=== PATIENT | female | born 1955 | race American Indian/Alaskan Native ===

== ENCOUNTER 2020-08-19 14:59 | Inpatient (IN) | payer BC ==
[2020-08-19] MEDS ORDERED: LORazepam 2 MG/ML VIAL ONE (15:28)
--- NOTE | 2020-08-19 15:54 | Consultation ---
History of Present Illness History of present illness: [facility] Consult Note # Demographics Consult Type: General Neurology Patient Location: Emergency Room First Name: Gustavo Last Name: Vickie James Date of : 09/16/1965 Age: 54 Gender: Female Time of Initial Page (Eastern Time): 08/19/2020, 15:46 Time of Return Call (Eastern Time): 08/19/2020, 15:46 Phone Only Consult: 54F with chronic back pain on opioids presents with AMS/LOC. Has been out of oxycodone for several days. Came to the ED, vomiting, having diarrhea, very agitated. Febrile to 100.5. WBC 22K. CT head unremarkable. Had a [address] Given 1.5g levetiracetam and then intubated for airway protection, placed on propofol and fentanyl for sedation. 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 Recommend video EEG and LP, which may need to be done under IR guidance. # Logistics Telemedicine: phone only Electronically signed at 08/19/2020 15:54 ( Time) by Mannie York MD Medications and Allergies Allergies Allergy/AdvReac Type Severity Reaction Status Date / Time No Known Allergies Allergy Verified 08/19/20 15:50 Home Medications Medication Instructions Recorded Confirmed Last Taken Type EPINEPHrine (NF) [Epipen (Nf)] 0.3 mg IM PRN #1 syringekit 04/27/14 Unknown Rx Prednisone [Prednisone 10 mg 10 mg PO .TAPER #1 tab.ds.pk 04/27/14 Unknown Rx (6-Day Pack, 21 Tabs)] Azithromycin [Zithromax Z-JANES] 1 dose PO DAILY 5 Days tab 07/09/15 Unknown Rx Ibuprofen [Motrin] 800 mg PO Q8HR PRN #30 tablet 07/09/15 Unknown Rx traMADoL [Ultram 50 MG tab] 50 mg PO Q6HR PRN #20 tablet 07/09/15 Unknown Rx
[2020-08-19] MEDS ORDERED: LORazepam 2 MG/ML VIAL IM ONE (16:00)
[2020-08-19] MEDS ORDERED: HALOPERIDOL LACTATE 5 MG/1 ML INJ IM ONE (16:01)
[2020-08-19] MEDS ORDERED: diphenhydrAMINE 50 MG/ML VIAL IM ONE (16:01)
--- NOTE | 2020-08-19 16:04 | Cat Scan Report ---
CT head/brain wo con INDICATION / CLINICAL INFORMATION: 65 years Female; CODE STROKE Stroke symptoms PT IS AMS UNABLE TO GET A GOOD STUDY #[id number]. TECHNIQUE: Routine CT head without contrast. All CT scans at this location are performed using CT dos e reduction for ALARA by means of automated exposure control. COMPARISON: None. FINDINGS: BRAIN / INTRACRANIAL CONTENTS: The motion and positioning degrade the image quality at. 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 The ve ntricular system is within normal limits in size and configuration. There is no clear CT evidence of acute intracranial hemorrhage or significant mass effect. ORBITS: No significant abnormality of visualized orbits. SINUSES / MASTOIDS: No significant abnormality in the visualized paranasal sinuses or mastoid air martín ls. CRANIOCERVICAL JUNCTION: No significant abnormality. ADDITIONAL FINDINGS: None. IMPRESSION: 1. The study is limited by motion and positioning. However, there is mild microvascular angiopathy wi thout clear CT evidence of acute intracranial hemorrhage. The study was specified as code stroke and dictated emergently at 2:57 PM Central standard time. [facility] with no answer. Signer Name: Nikolai Coronado MD Signed: 08/19/2020 4:00 PM Workstation Name: [id number]
[2020-08-19 16:19] LABS: Basophils # (Auto) 0.1 K/mm3 (0.0-0.1); Hematocrit 27.2 % (30.3-42.9); Hemoglobin 9.2 gm/dl (10.1-14.3); Lymphocytes # (Auto) 1.3 K/mm3 (1.2-5.4); Lymphocytes % (Auto) 12.6 % (13.4-35.0); Mean Corpuscular HGB Conc 34 % (30-34); Mean Corpuscular Volume 97 fl (79-97); Monocytes # (Auto) 0.8 K/mm3 (0.0-0.8); Monocytes % (Auto) 7.8 % (0.0-7.3); Platelet Count 242 K/mm3 (140-440); Red Blood Count 2.79 M/mm3 (3.65-5.03); Red Cell Distribution Width 14.2 % (13.2-15.2)
[2020-08-19 16:29] LABS: INR 1.08 (0.87-1.13)
[2020-08-19 16:30] LABS: Partial Thromboplastin Time 24.3 Sec. (24.2-36.6); Thrombin Time 16.9 Sec. (15.1-19.6)
--- NOTE | 2020-08-19 16:30 | Consultation ---
History of Present Illness History of present illness: [facility] Consult Note # Demographics Consult Type: Acute Stroke Level 2 (4.5-24 hrs) Patient Location: Emergency Room First Name: OPAL Last Name: JEROME ARAUZ Date of : 1955 Age: 65 Gender: Female Time of Initial Page (): 08/19/2020, 15:17 Time of Return Call ( Time): 08/19/2020, 15:17 # HPI Chief Complaint: altered mental state History: 65F presents with confusion since midnight last night. Unable to concentrate, just repeating "oh my god". Last night was acting strange, urinating on the floor and walking in circles. Keeps grabbing her head. BP 200/120 for EMS, fingerstick 116. # Scores Time of exam and NIHSS (): 08/19/2020, 15:18 Level of Consciousness 1a: [0] = Alert; keenly responsive LOC Questions 1b: [2] = Answers neither correctly LOC Commands 1c: [2] = Performs neither correctly Best Gaze 2: [0] = Normal Visual 3: [0] = No visual loss Facial Palsy 4: [0] = Normal symmetrical movements Motor Arm Left 5a: [2] = Some effort against gravity Motor Arm Right 5b: [2] = Some effort against gravity Motor Leg Left 6a: [2] = Some effort against gravity Motor Leg Right 6b: [2] = Some effort against gravity Limb Ataxia 7: [0] = Absent Sensory 8: [0] = Normal Best Language 9: [2] = Severe aphasia Dysarthria 10: [0] = Normal Extinction and Inattention 11: [0] = No abnormality NIHSS Total: 14 # Data Other Labs: WBC 10.7K Time Head CT personally read by me ( Time): 08/19/2020, 15:[address]: no bleed preliminarily reviewed by me, please refer to radiology read for official reading # Assessment Impression: Ischemic Stroke (Acute) vs metabolic encephalopathy # Plan Thrombolytic/Intervention: IA Intervention Thrombolytic Exclusion: > 4.5 hours Target Blood Pressure: SBP < 220 DBP < 105 Labs: hemoglobin A1c lipid panel Imaging: (urgency: STAT): CT Angiogram Head and CT Angiogram Neck AND call back with results if abnormal Imaging: (urgency: routine): MRI Brain without contrast Other: permissive hypertension telemetry monitoring I have discussed my recommendations with the referring provider Additional Recommendations: If LVO present on CTA, would transfer for potential mechanical thrombectomy If no LVO, admit for stroke work-up with TTE, telemetry, check lipid panel and hgb A1C, MRI brain. 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 antibiotics Give ASA 300 TX and start high-dose statin when oral access available Disposition: admit # Logistics Telemedicine: Interactive 2 way audio and visual telecommunication technology was utilized during this visit Electronically signed at 08/19/2020 16:30 (Eastern Time) by Mannie York MD Medications and Allergies Allergies Allergy/AdvReac Type Severity Reaction Status Date / Time No Known Allergies Allergy Verified 08/19/20 15:50 Home Medications Medication Instructions Recorded Confirmed Last Taken Type EPINEPHrine (NF) [Epipen (Nf)] 0.3 mg IM PRN #1 syringekit 04/27/14 Unknown Rx Prednisone [Prednisone 10 mg 10 mg PO .TAPER #1 tab.ds.pk 04/27/14 Unknown Rx (6-Day Pack, 21 Tabs)] Azithromycin [Zithromax Z-JANES] 1 dose PO DAILY 5 Days tab 07/09/15 Unknown Rx Ibuprofen [Motrin] 800 mg PO Q8HR PRN #30 tablet 07/09/15 Unknown Rx traMADoL [Ultram 50 MG tab] 50 mg PO Q6HR PRN #20 tablet 07/09/15 Unknown Rx Physical Examination - Vital Signs Vital Signs: Vital Signs Pulse Resp BP Pulse Ox 90 18 174/73 100 08/19/20 16:02 08/19/20 16:02 08/19/20 16:02 08/19/20 16:02 Results - Laboratory Findings CBC and BMP: 08/19/20 16:14 Abnormal Lab Findings: Abnormal Labs 08/19/20 16:14 RBC 2.79 L Hgb 9.2 L Hct 27.2 L MCH 33 H Lymph % (Auto) 12.6 L Wall[place] % (Auto) 7.8 H Seg Neutrophils % 78.6 H Seg Neutrophils # 8.4 H
[2020-08-19 16:39] LABS: Creatine Kinase MB 1.9 ng/mL (0.0-4.0)
[2020-08-19 16:41] LABS: Alanine Aminotransferase 9 units/L (7-56); Albumin 4.3 g/dL (3.9-5); Blood Urea Nitrogen 59 mg/dL (7-17); Calcium 9.2 mg/dL (8.4-10.2); Hemolysis Index 38
[2020-08-19 16:44] LABS: BUN/Creatinine Ratio 8
--- NOTE | 2020-08-19 16:53 | Emergency Department Report ---
HPI - General Chief Complaint: Altered Mental Status Time Seen by Provider: 08/19/20 15:14 - HPI HPI: 65-year-old female with unknown past medical history brought in by EMS due to worsening altered mental status and neglect. According to the EMS report, the patient was last seen normal at midnight last night. Since then she has had altered mental status to the point that she is unable to communicate. She does not respond to questioning and has been displaying neglect for any external stimuli. According to the EMS report her Accu-Chek was 98. The patient keeps saying "Oh my God" over and over but does not respond to any questioning. Details of the HPI are therefore extremely limited. I later spoke with the patient's who provided further history. He says that since 12 AM last night she has been displaying altered mental status and has been urinating on herself constantly. She has also been vomiting. He says that she has a history of a right lower extremity DVT and underwent recent intervention at [facility]. He is not sure which kind of intervention she received but states that she was scheduled to go back to the hospital very soon to complete further clot removal. She is not on anticoagulation. He denies that she has any other medical history or allergies. ED Past Medical Hx - Past Medical History Hx Asthma: Yes - Social History Smoking Status: Never Smoker Substance Use Type: None - Medications Home Medications: Home Medications Medication Instructions Recorded Confirmed Last Taken Type EPINEPHrine (NF) [Epipen (Nf)] 0.3 mg IM PRN #1 syringekit 04/27/14 Unknown Rx Prednisone [Prednisone 10 mg 10 mg PO .TAPER #1 tab.ds.pk 04/27/14 Unknown Rx (6-Day Pack, 21 Tabs)] Azithromycin [Zithromax Z-JANES] 1 dose PO DAILY 5 Days tab 07/09/15 Unknown Rx Ibuprofen [Motrin] 800 mg PO Q8HR PRN #30 tablet 07/09/15 Unknown Rx traMADoL [Ultram 50 MG tab] 50 mg PO Q6HR PRN #20 tablet 07/09/15 Unknown Rx ED Review of Systems ROS: Stated complaint: AMS Other details as noted in HPI Comment: Unobtainable due to pts medical conditions Physical Exam - Physical Exam Vital Signs: Vital Signs 08/19/20 16:02 Pulse Rate 90 Respiratory 18 Rate Blood Pressure 174/73 [Right] O2 Sat by Pulse 100 Oximetry Physical Exam: GENERAL: Well developed and well nourished. Patient is in mild to moderate distress repeating "oh my god" over and over. Patient does not display regard for the examiner and has not been able to shift her eyes or attention towards me. HEENT: Normocephalic. No obvious signs of trauma. Very dry mucous membranes EYES: Unable to assess EOM secondary to altered mental state. Pupils are equal round and reactive to light bilaterally NECK: Supple. Trachea is midline. LUNGS: Nonlabored breathing. Equal chest rise bilaterally. Clear to auscultation bilaterally. HEART/CARDIOVASCULAR: Regular rate and rhythm. No murmurs or rubs. ABDOMEN: Abdomen is soft and nondistended. There is no obvious tenderness, guarding or rebound, although difficult to assess given altered mental state. SKIN: Skin is warm and dry NEURO: Patient is awakeand alert but oriented x 0. She displays bilateral neglect and is not responding to any speech. She is uncooperative with the exam. Seen moving all 4 extremities with grossly normal strength. Unable to assess sensation. MUSCULOSKELETAL: No obvious deformities. No significant tenderness. ED Course Vital Signs 08/19/20 16:02 Pulse Rate 90 Respiratory 18 Rate Blood Pressure 174/73 [Right] O2 Sat by Pulse 100 Oximetry ED Medical Decision Making - Lab Data Result diagrams: 08/19/20 16:14 08/19/20 16:14 Labs 08/19/20 08/19/20 08/19/20 15:45 16:14 16:14 WBC 10.7 RBC 2.79 L Hgb 9.2 L Hct 27.2 L MCV 97 MCH 33 H MCHC 34 RDW 14.2 Plt Count 242 Lymph % (Auto) 12.6 L [place] % (Auto) 7.8 H Eos % (Auto) 0.0 Baso % (Auto) 1.0 Lymph # (Auto) 1.3 [place] # (Auto) 0.8 Eos # (Auto) 0.0 Baso # (Auto) 0.1 Seg Neutrophils % 78.6 H Seg Neutrophils # 8.4 H PT 14.6 INR 1.08 APTT 24.3 Thrombin Time 16.9 Sodium Potassium Chloride Carbon Dioxide Anion Gap BUN Creatinine Estimated GFR BUN/Creatinine Ratio Glucose POC Glucose 94 Calcium Total Bilirubin AST ALT Alkaline Phosphatase Total Creatine Kinase CK-MB (CK-2) CK-MB (CK-2) Rel Index Troponin T Total Protein Albumin Albumin/Globulin Ratio PTH Intact Urine Color Urine Turbidity Urine pH Ur Specific [place] Urine Protein Urine Glucose (UA) Urine Ketones Urine Blood Urine Nitrite Urine Bilirubin Urine Urobilinogen Ur Leukocyte Esterase Urine WBC (Auto) Urine RBC (Auto) U Epithel Cells (Auto) Urine Opiates Screen Urine Methadone Screen Ur Barbiturates Screen Ur Phencyclidine Scrn Ur Amphetamines Screen U Benzodiazepines Scrn Urine Cocaine Screen U Marijuana (THC) Screen Drugs of Abuse Note Plasma/Serum Alcohol Hepatitis A IgM Ab Hep Bs Antigen Hep B Core IgM Ab Hepatitis C Antibody HIV 1&2 Antibody Rapid HIV P24 Antigen 08/19/20 08/19/20 08/19/20 16:14 16:14 17:28 WBC RBC Hgb Hct MCV MCH MCHC RDW Plt Count Lymph % (Auto) [place] % (Auto) Eos % (Auto) Baso % (Auto) Lymph # (Auto) [place] # (Auto) Eos # (Auto) Baso # (Auto) Seg Neutrophils % Seg Neutrophils # PT INR APTT Thrombin Time Sodium 143 Potassium 5.6 H Chloride 103.9 Carbon Dioxide 21 L Anion Gap 24 BUN 59 H Creatinine 7.4 H Estimated GFR 7 BUN/Creatinine Ratio 8 Glucose 110 H POC Glucose Calcium 9.2 Total Bilirubin 0.30 AST 11 ALT 9 Alkaline Phosphatase 78 Total Creatine Kinase 184 H CK-MB (CK-2) 1.9 CK-MB (CK-2) Rel Index 1.0 Troponin T < 0.010 Total Protein 7.6 Albumin 4.3 Albumin/Globulin Ratio 1.3 PTH Intact 103.8 H Urine Color Urine Turbidity Urine pH Ur Specific [place] Urine Protein Urine Glucose (UA) Urine Ketones Urine Blood Urine Nitrite Urine Bilirubin Urine Urobilinogen Ur Leukocyte Esterase Urine WBC (Auto) Urine RBC (Auto) U Epithel Cells (Auto) Urine Opiates Screen Urine Methadone Screen Ur Barbiturates Screen Ur Phencyclidine Scrn Ur Amphetamines Screen U Benzodiazepines Scrn Urine Cocaine Screen U Marijuana (THC) Screen Drugs of Abuse Note Plasma/Serum Alcohol < 0.01 Hepatitis A IgM Ab Hep Bs Antigen Hep B Core IgM Ab Hepatitis C Antibody HIV 1&2 Antibody Rapid HIV P24 Antigen 08/19/20 08/19/20 08/19/20 17:28 17:28 18:31 WBC RBC Hgb Hct MCV MCH MCHC RDW Plt Count Lymph % (Auto) [place] % (Auto) Eos % (Auto) Baso % (Auto) Lymph # (Auto) [place] # (Auto) Eos # (Auto) Baso # (Auto) Seg Neutrophils % Seg Neutrophils # PT INR APTT Thrombin Time Sodium Potassium Chloride Carbon Dioxide Anion Gap BUN Creatinine Estimated GFR BUN/Creatinine Ratio Glucose POC Glucose Calcium Total Bilirubin AST ALT Alkaline Phosphatase Total Creatine Kinase CK-MB (CK-2) CK-MB (CK-2) Rel Index Troponin T Total Protein Albumin Albumin/Globulin Ratio PTH Intact Urine Color Straw Urine Turbidity Clear Urine pH 8.0 H Ur Specific [place] 1.011 Urine Protein 100 mg/dl Urine Glucose (UA) Neg Urine Ketones Tr Urine Blood Sm Urine Nitrite Neg Urine Bilirubin Neg Urine Urobilinogen < 2.0 Ur Leukocyte Esterase Tr Urine WBC (Auto) 7.0 H Urine RBC (Auto) 4.0 U Epithel Cells (Auto) 3.0 Urine Opiates Screen Urine Methadone Screen Ur Barbiturates Screen Ur Phencyclidine Scrn Ur Amphetamines Screen U Benzodiazepines Scrn Urine Cocaine Screen U Marijuana (THC) Screen Drugs of Abuse Note Plasma/Serum Alcohol Hepatitis A IgM Ab Non-reactive Hep Bs Antigen Non-reactive Hep B Core IgM Ab Non-reactive Hepatitis C Antibody Non-reactive HIV 1&2 Antibody Rapid Non react HIV P24 Antigen Non react 08/19/20 18:31 WBC RBC Hgb Hct MCV MCH MCHC RDW Plt Count Lymph % (Auto) [place] % (Auto) Eos % (Auto) Baso % (Auto) Lymph # (Auto) [place] # (Auto) Eos # (Auto) Baso # (Auto) Seg Neutrophils % Seg Neutrophils # PT INR APTT Thrombin Time Sodium Potassium Chloride Carbon Dioxide Anion Gap BUN Creatinine Estimated GFR BUN/Creatinine Ratio Glucose POC Glucose Calcium Total Bilirubin AST ALT Alkaline Phosphatase Total Creatine Kinase CK-MB (CK-2) CK-MB (CK-2) Rel Index Troponin T Total Protein Albumin Albumin/Globulin Ratio PTH Intact Urine Color Urine Turbidity Urine pH Ur Specific [place] Urine Protein Urine Glucose (UA) Urine Ketones Urine Blood Urine Nitrite Urine Bilirubin Urine Urobilinogen Ur Leukocyte Esterase Urine WBC (Auto) Urine RBC (Auto) U Epithel Cells (Auto) Urine Opiates Screen Negative Urine Methadone Screen Negative Ur Barbiturates Screen Negative Ur Phencyclidine Scrn Negative Ur Amphetamines Screen Negative U Benzodiazepines Scrn Negative Urine Cocaine Screen Negative U Marijuana (THC) Screen Negative Drugs of Abuse Note Disclamer Plasma/Serum Alcohol Hepatitis A IgM Ab Hep Bs Antigen Hep B Core IgM Ab Hepatitis C Antibody HIV 1&2 Antibody Rapid HIV P24 Antigen - EKG Data -: EKG Interpreted by Ia - EKG Data 08/19/20 18:32 Normal sinus rhythm. Normal axis. No ectopy. There are nonspecific T wave inversions noted in leads V1 through V3. There is no significant ST segment abnormalities. - Radiology Data CT head/brain wo con INDICATION / CLINICAL INFORMATION: 65 years Female; CODE STROKE Stroke symptoms PT IS AMS UNABLE TO GET A GOOD STUDY #[id number]. TECHNIQUE: Routine CT head without contrast. All CT scans at this location are performed using CT dose reduction for Scaled Agile by means of automated exposure control. COMPARISON: None. FINDINGS: BRAIN / INTRACRANIAL CONTENTS: The motion and positioning degrade the image quality at. However, there appears be mild cerebral white matter disease most consistent with microvascular a ngiopathy. The ventricular system is within normal limits in size and configuration. There is no clear CT evidence of acute intracranial hemorrhage or significant mass effect. ORBITS: No significant abnormality of visualized orbits. SINUSES / MASTOIDS: No significant abnormality in the visualized p aranasal sinuses or mastoid air cells. CRANIOCERVICAL JUNCTION: No significant abnormality. ADDITIONAL FINDINGS: None. IMPRESSION: 1. The study is limited by motion and positioning. However, there is mild microvascular angiopathy without clear CT evidence of acute intracranial hemorrhage. The study was specified as code stroke and dictated emergently at 2:57 PM Central standard time. Multiple c alls to the emergency room were unsuccessful with no answer. Signer Name: Nikolai Coronado MD Signed: 08/19/2020 3:00 PM Workstation Name: [id number] CT ABDOMEN AND PELVIS WITHOUT CONTRAST INDICATION / CLINICAL INFORMATION: Acute renal failure, uyrinary incontinence. TECHNIQUE: Axial CT images were obtained through the abdomen and pelvis without IV contrast. All CT scans at this location are performed using CT dose reduction for Scaled Agile by means of automated exposure control. COMPARISON: None available. FINDINGS: LOWER CHEST: No significant abnormality. LIVER: No significant abnormality. GALLBLADDER: No significant abnormality. BILE DUCTS: No significant abnormality. PANCREAS: No significant abnormality. SPLEEN: No significant abnormality. ADRENALS: No significant abnormality. RIGHT KIDNEY and URETER: Moderate right hydronephrosis and dilation of the proximal to mid right ureter. No obvious obstructing stone or lesion identified. LEFT KIDNEY and URETER: Moderate left hydroureteroneph rosis. No obvious obstructing stone or lesion identified. STOMACH and SMALL BOWEL: No significant abnormality. COLON: Diverticulosis without CT evidence for acute diverticulitis. APPENDIX: No significant abnormality. PERITONEUM: No free fluid. No free air. No fluid collection. LYMPH NODES: Mildly prominent left groin lymph nodes are nonspecific and likely reactive. AORTA and ARTERIES: No significant abnormality. IVC and VEINS: No significant abnormality. URINARY BLADDER: Collapsed with a Bowman catheter in place. REPRODUCTIVE ORGANS: Prior hysterectomy. ADDITIONAL FINDINGS: Several fat-containing ventral abdominal hernias. There is asymmetric soft tissue swelling involving the visualized left anterior thigh and left flank. SKELETAL SYSTEM: No significant abnormality. IMPRESSION: 1. Moderate bilateral hydroureteronephrosis without obvious obstructing stone or lesion identified. 2. Asymmetric soft tissue swelling involving the left flank and left proximal thigh. Signer Name: Kelley Saha MD Signed: 08/19/2020 6:58 PM Workstation Name: [id number] CHEST 1 VIEW 08/19/2020 6:47 PM INDICATION / CLINICAL INFORMATION: stroke, AMS. COMPARISON: 07/09/2015 FINDINGS: SUPPORT DEVICES: None. HEART / MEDIASTINUM: Stable. LUNGS / PLEURA: No significant pulmonary or pleural abnormality. No pneumothorax. ADDITIONAL FINDINGS: No significant additional findings. IMPRESSION: 1. No acute findings. Signer Name: Gilberto Campos MD Signed: 08/19/2020 6:38 PM Workstation Name: [id number] - Medical Decision Making 65-year-old female brought in by EMS for altered mental status and spatial neglect which apparently started at midnight. According to the EMS report, her stated that she was in her normal state last night until midnight after which she displayed severely altered mental status and was unable to respond to questioning as well as not able to pay attention to any external stimulus. On my initial assessment, the patient is unable to regard the examiner. She does not follow commands or respond to questioning. She is unable to direct her attention towards any external stimulus. She does however respond to pain. Given abrupt onset of severe neurologic deficits, stroke alert was initiated. The patient is afebrile and with grossly stable vital signs. Further history was obtained from the patient's who conveyed that she has no known medical history with the exception of the right lower extremity DVT and she apparently underwent some kind of intervention Thursday at [facility]. She is not on anticoagulation is apparently scheduled for another intervention. He also further states that the patient today has been urinating on herself and has vomited a few times in addition to the neurologic complaints and deficits observed. I immediately put in a request for medical records from [facility]. I spoke with Dr. Chand of teleneurology who agreed with my assessment and is also suspicious for possible stroke. He reviewed the Noncon CT of the head and there is no evidence of ICH. Radiology read confirms that there is no intracranial bleeding and no obvious sign of acute infarct. Dr. Chand recommended CTA of the head and neck which will be performed as soon as IV access has been obtained. Will give aspirin 300mg WA. Medications ordered for sedation to assist with IV placement. Labs have been drawn. At 4:49 PM, labs have returned and reveal no significant leukocytosis. Hemoglobin is mildly low at 9.2. Of note, the patient is in acute renal failure with a creatinine of 7.4 and BUN of 59. Her potassium is mildly elevated at 5.6. With this finding, in conjunction with the history provided by the that the patient has been urinating on herself and vomiting, I am more suspicious for a possible metabolic cause of her altered mental status, although stroke cannot be ruled out at this time. I asked the nurse to place a Bowman catheter given the possibility of obstructive uropathy. I spoke again with Dr. Chand of teleneurology and updated him with these findings. He says that with these additional results he recommends MR/MRA instead of CTA. He does not feel that the patient requires an LP at this time. Although there are no hard findings to warrant emergent dialysis at this time we will nonetheless consult nephrology and vascular surgery stat given the patient's current clinical condition. At 5:00 PM I spoke to Dr. Brewer of nephrology regarding the case and lab results. He recommends fluid trial with 1 L of IV fluids as well as ultrasound study of the kidneys to assess for evidence of obstruction. He recommends consulting vascular surgery to have them available should she require emergent dialysis. He will also place further orders. Soon thereafter I spoke over the phone with Dr. Valverde of vascular surgery and he asked that I put the patient on his list. At approximately 6 PM I was called to the bedside with the nurse who states that she is unable to pass a Bowman catheter because the patient has a urethral stricture. I recommended trying to place a coud catheter. The nurse was able to pass the coud catheter and approximately 500 cc of urine immediately drained. This is in addition to several episodes of urinary incontinence since the patient first arrived. Urinalysis does not show obvious sign of infection but will nonetheless send urine culture given the finding of urinary retention, although urethral stricture could be the cause. CT scan of the abdomen is still pending. At 7:10 PM the patient's blood pressure which was previously in the 170s has been progressively increasing and her most recent blood pressures in the 200s systolic. I spoke with Dr. Brewer of nephrology and gave him an update regarding the patient's urinary retention and urethral stricture. He feels that this is likely the cause of her acute renal failure, although concomitant stroke is still possible. I spoke with him regarding my concern given her elevated blood pressure which is now in the 200s systolic. He recommends initiation of a Cardene drip with admission to the intensive care unit. He will continue to monitor her closely overnight and determine the need for emergent dialysis if necessary. He does not feel it is necessary at this exact time. We will target systolic blood pressure < 180 to allow permissive hypertension given the possibility of concomitant stroke. Repeat BMP ordered as well as ammonia level. I spoke with the admitting hospitalist, Dr. Almanza at 7:44 PM regarding the case. He accepts the patient for admission will assume care. I conveyed that CT of the abdomen pelvis and repeat labs are pending. Bilateral lower extremity DVT study has been ordered given the history obtained from the that the patient has a right lower extremity DVT requiring further prevention. Critical Care Time: Yes (120) Critical care time in (mins) excluding proc time.: 120 Critical care attestation.: If time is entered above; I have spent that time in minutes in the direct care of this critically ill patient, excluding procedure time. Critical care time was spent in the assessment, work-up, and management of acutely life-threatening renal failure, possible stroke, encephalopathy, and hypertensive urgency requiring initiation of Cardene drip and coordination of care between multiple specialists. ED Disposition Clinical Impression: Uremia, Hypertensive urgency, Hyperkalemia, Urinary retention, Encephalopathy acute Acute renal failure Qualifiers: Acute renal failure type: unspecified Qualified Code(s): N17.9 - Acute kidney failure, unspecified Altered mental state Qualifiers: Altered mental status type: delirium Qualified Code(s): R41.0 - Disorientation, unspecified Disposition: DC-09 OP ADMIT IP TO THIS HOSP Is pt being admited?: Yes Condition: Critical Referrals: PRIMARY CARE, [Primary Care Provider] - 3-5 Days
[2020-08-19] MEDS ORDERED: SODIUM CHLORIDE 0.9% 1000 ML 1,000 ML IV ONE (17:38)
[2020-08-19] MEDS ORDERED: LORazepam 2 MG/ML VIAL IV ONE ×2 (17:39→17:40)
[2020-08-19] MEDS ORDERED: ASPIRIN 300 MG RECT SUPP PR ONE (18:38)
[2020-08-19 18:46] LABS: Bilirubin,Urine NEG (Negative); Blood,Urine SM (Negative); Color,Urine Straw (Yellow); Urobilinogen,Urine < 2.0 mg/dL (<2.0)
[2020-08-19 18:51] LABS: Amphetamine Screen,Urine Negative; Benzodiazepines Screen,Urine Negative; Cannabinoid Screen,Urine Negative; Cocaine Screen,Urine Negative; Methadone Screen,Urine Negative; Opiate Screen,Urine Negative
[2020-08-19 18:54] LABS: Hepatitis B Surface Antigen Non-Reactive (Negative); Hepatitis C Virus Antibody Non-Reactive (NonReactive)
[2020-08-19] MEDS ORDERED: hydrALAZINE 20 MG/1 ML INJ IV ONE (19:07)
[2020-08-19] MEDS: niCARdipine DRIP 40 MG/200 ML BAG IV SCH (19:41)
--- NOTE | 2020-08-19 19:43 | History and Physical Report ---
History of Present Illness Chief complaint: She is confused and weak History of present illness: 65 YO Female with Vascular Dementia, Cerebral Atherosclerosis, HTN, Debility, RLE DVT not taking therapeutic anticoagulation presents to ED for evaluation. Patient has diminished cognition at the time my evaluation is unable to provide history. Patient history provided by the patient who is available via telephone for interview. As per , the patient has experienced increased worsening and confusion over the past 1 week with concomitant acutely worsening of confusion over the past 24 hours. Patient is currently bedbound, nonambulatory, and requires 6/6 assistance with activities of daily living, and is unable to make needs known or follow simple commands. EMS notified and upon arrival the patient was found to be in distress and subsequently transported to [facility] for further care and evaluation of the aforementioned symptoms. The patient was seen and evaluated in the emergency department. All lab and image studies reviewed. Patient found to have JENNIFER with ATN with a serum creatinine of 7.4. The patient was also found to have a systolic blood pressure of 203 which is consistent with hypertensive emergency which was complicated by hypertensive encephalopathy, metabolic acidosis. Nephrology team consulted in ED. Critical care team consulted. Patient admitted to ICU and initiated on Cardene drip due to increased risk of further worsening symptoms. No further history is obtainable. Patient has diminished cognition but has a positive gag reflex and is able to protect her airway without difficulty. No reports of fever, chills, chest pain, palpitation, productive cough, skin rash, recent ill contacts, trauma, or known exposure to COVID-19. No prior admission for review. All medication listed at time of admission has been reconciled. Advanced care planning conducted in ED. Past History Past Medical History: hypertension, other (See HPI) Past Surgical History: No surgical history, Other (Reviewed) Social history: , lives with family. denies: smoking, alcohol abuse, prescription drug abuse Family history: hypertension Medications and Allergies Allergies Allergy/AdvReac Type Severity Reaction Status Date / Time No Known Allergies Allergy Verified 08/19/20 15:50 Home Medications Medication Instructions Recorded Confirmed Last Taken Type EPINEPHrine (NF) [Epipen (Nf)] 0.3 mg IM PRN #1 syringekit 04/27/14 Unknown Rx Prednisone [Prednisone 10 mg 10 mg PO .TAPER #1 tab.ds.pk 04/27/14 Unknown Rx (6-Day Pack, 21 Tabs)] Azithromycin [Zithromax Z-JANES] 1 dose PO DAILY 5 Days tab 07/09/15 Unknown Rx Ibuprofen [Motrin] 800 mg PO Q8HR PRN #30 tablet 07/09/15 Unknown Rx traMADoL [Ultram 50 MG tab] 50 mg PO Q6HR PRN #20 tablet 07/09/15 Unknown Rx Active Meds: Active Medications Nicardipine/Sodium Chloride (Cardene Drip 40 Mg/200 Ml) 40 mg in 200 mls @ 25 mls/hr IV TITR RADHA; Protocol Last Admin: 08/19/20 19:41 Dose: 5 mg/hr, 25 mls/hr Documented by: Review of Systems ROS unobtainable: due to mental status Exam - Constitutional Vitals: Temp Pulse Resp BP Pulse Ox 98.3 F 97 H 19 203/96 96 08/19/20 16:05 08/19/20 19:01 08/19/20 19:01 08/19/20 19:01 08/19/20 19:01 General appearance: Present: mild distress, obese - EENT Eyes: Present: PERRL ENT: clear oral mucosa, hearing decreased - Neck Neck: Present: supple, normal ROM - Respiratory Respiratory effort: normal Respiratory: bilateral: CTA - Cardiovascular Heart Sounds: Present: S1 & S2. Absent: rub, click - Extremities Extremities: pulses symmetrical, No edema Peripheral Pulses: within normal limits - Abdominal General gastrointestinal: Present: soft, non-tender, non-distended, normal bowel sounds Female genitourinary: Present: normal - Integumentary Integumentary: Present: clear, warm, dry - Musculoskeletal Musculoskeletal: generalized weakness - Psychiatric Psychiatric: no appropriate mood/affect, no intact judgment & insight, no memory intact, agitated - Neurologic Neurologic: CNII-XII intact, no focal deficits, moves all extremities, no gait normal HEART Score - HEART Score Troponin: Troponin T < 0.010 ng/mL (0.00-0.029) 08/19/20 16:14 Results - Labs CBC & Chem 7: 08/19/20 16:14 08/19/20 16:14 Labs: Abnormal lab results 08/19/20 08/19/20 08/19/20 Range/Units 16:14 16:14 17:28 RBC 2.79 L (3.65-5.03) M/mm3 Hgb 9.2 L (10.1-14.3) gm/dl Hct 27.2 L (30.3-42.9) % MCH 33 H (28-32) pg Lymph % (Auto) 12.6 L (13.4-35.0) % Peach % (Auto) 7.8 H (0.0-7.3) % Seg Neutrophils % 78.6 H (40.0-70.0) % Seg Neutrophils # 8.4 H (1.8-7.7) K/mm3 Potassium 5.6 H (3.6-5.0) mmol/L Carbon Dioxide 21 L (22-30) mmol/L BUN 59 H (7-17) mg/dL Creatinine 7.4 H (0.6-1.2) mg/dL Glucose 110 H (65-100) mg/dL Total Creatine Kinase 184 H (30-135) units/L PTH Intact 103.8 H (15-65) pg/mL Urine pH (5.0-7.0) Urine WBC (Auto) (0.0-6.0) /HPF 08/19/20 Range/Units 18:31 RBC (3.65-5.03) M/mm3 Hgb (10.1-14.3) gm/dl Hct (30.3-42.9) % MCH (28-32) pg Lymph % (Auto) (13.4-35.0) % Peach % (Auto) (0.0-7.3) % Seg Neutrophils % (40.0-70.0) % Seg Neutrophils # (1.8-7.7) K/mm3 Potassium (3.6-5.0) mmol/L Carbon Dioxide (22-30) mmol/L BUN (7-17) mg/dL Creatinine (0.6-1.2) mg/dL Glucose (65-100) mg/dL Total Creatine Kinase (30-135) units/L PTH Intact (15-65) pg/mL Urine pH 8.0 H (5.0-7.0) Urine WBC (Auto) 7.0 H (0.0-6.0) /HPF Assessment and Plan - Patient Problems (1) Hypertensive emergency Current Visit: Yes Status: Acute Plan to address problem: Patient initiated on Cardene drip and admitted to ICU, monitor blood pressure per protocol, neuro check, seizure precautions, supportive care. The high probability of a clinically significant, sudden or life threatening deterioration of the [neuro, cardiac, renal] system(s) required my full and direct attention, intervention and personal management. The aggregate critical care time was [65] minutes. This time is in addition to time spent performing reported procedures but includes the following: [x] Data Review and interpretation [x] Patient assessment and monitoring of vital signs [x] Documentation [x] Medication orders and management (2) Acute kidney injury (JENNIFER) with acute tubular necrosis (ATN) Current Visit: Yes Status: Acute Plan to address problem: Monitor urine output every shift, nephrology team consulted in ED, dialysis as per renal team, vascular surgery consulted in ED for probable dialysis catheter placement. (3) Hypertensive encephalopathy syndrome Current Visit: Yes Status: Acute Plan to address problem: Cardene drip, monitor blood pressure every shift, neuro check, seizure precaution, aspiration precautions, blood pressure control. (4) Metabolic acidosis Current Visit: Yes Status: Acute Plan to address problem: BMP, repeat BMP in a.m., supportive care. (5) Obesity (BMI 30.0-34.9) Current Visit: Yes Status: Acute Plan to address problem: Balanced diet, increase physical activity at discharge, outpatient pulmonary f ollow-up for sleep study (6) Vascular dementia Current Visit: Yes Status: Acute Qualifiers: Dementia behavioral disturbance: without behavioral disturbance Qualified Code(s): F01.50 - Vascular dementia without behavioral disturbance Plan to address problem: Verbal prompting, verbal redirection, benzodiazepine therapy as clinically indicated, supportive care. (7) Cerebral atherosclerosis Current Visit: Yes Status: Acute Plan to address problem: Risk factor reduction, supportive care, antiplatelet therapy as clinically indicated. (8) DVT prophylaxis Current Visit: Yes Status: Acute Plan to address problem: SCD to bilateral lower extremities while in bed (9) Advance care planning Current Visit: Yes Status: Acute Plan to address problem: Disease education done, care plan discussed, diagnosis discussed, prognosis discussed, patient is full code, patient knowledges understanding and agreement with care plan, +30 minutes.
--- NOTE | 2020-08-19 19:43 | XRay Report ---
CHEST 1 VIEW 08/19/2020 6:47 PM INDICATION / CLINICAL INFORMATION: stroke, AMS. COMPARISON: 07/09/2015 FINDINGS: SUPPORT DEVICES: None. HEART / MEDIASTINUM: Stable. LUNGS / PLEURA: No significant pulmonary or pleural abnormality. No pneumothorax. ADDITIONAL FINDINGS: No significant additional findings. IMPRESSION: 1. No acute findings. Signer Name: Gilberto Campos MD Signed: 08/19/2020 7:38 PM Workstation Name: [id number]
[2020-08-19] MEDS ORDERED: ALBUTEROL 2.5 MG/3 ML NEBU IH PRN (19:45)
[2020-08-19] MEDS ORDERED: niCARdipine 50 MG in SODIUM CHLORIDE 0.9% 250ML 230 ML IV SCH (20:00)
--- NOTE | 2020-08-19 20:03 | Cat Scan Report ---
CT ABDOMEN AND PELVIS WITHOUT CONTRAST INDICATION / CLINICAL INFORMATION: Acute renal failure, uyrinary incontinence. TECHNIQUE: Axial CT images were obtained through the abdomen and pelvis without IV contrast. All CT scans at [facility] location are performed using CT dose reduction for ALARA by means of automated exposure control. COMPARISON: None available. FINDINGS: LOWER CHEST: No significant abnormality. LIVER: No significant abnormality. GALLBLADDER: No significant abnormality. BILE DUCTS: No significant abnormality. PANCREAS: No significant abnormality. SPLEEN: No significant abnormality. ADRENALS: No significant abnormality. RIGHT KIDNEY and URETER: Moderate right hydronephrosis and dilation of the proximal to mid right uret er. No obvious obstructing stone or lesion identified. LEFT KIDNEY and URETER: Moderate left hydroureteronephrosis. No obvious obstructing stone or lesion i dentified. STOMACH and SMALL BOWEL: No significant abnormality. COLON: Diverticulosis without CT evidence for acute diverticulitis. APPENDIX: No significant abnormality. PERITONEUM: No free fluid. No free air. No fluid collection. LYMPH NODES: Mildly prominent left groin lymph nodes are nonspecific and likely reactive. AORTA and ARTERIES: No significant abnormality. IVC and VEINS: No significant abnormality. URINARY BLADDER: Collapsed with a Bowman catheter in place. REPRODUCTIVE ORGANS: Prior hysterectomy. ADDITIONAL FINDINGS: Several fat-containing ventral abdominal hernias. There is asymmetric soft tissu e swelling involving the visualized left anterior thigh and left flank. SKELETAL SYSTEM: No significant abnormality. IMPRESSION: 1. Moderate bilateral hydroureteronephrosis without obvious obstructing stone or lesion identified. 2. Asymmetric soft tissue swelling involving the left flank and left proximal thigh. Signer Name: Kelley Saha MD Signed: 08/19/2020 7:58 PM Workstation Name: [id number]
[2020-08-19 20:34] LABS: Calcium 9.5 mg/dL (8.4-10.2)
--- NOTE | 2020-08-19 23:18 | Vascular Lab Report ---
DUPLEX DOPPLER LOWER EXTREMITY VEINS, BILATERAL INDICATION / CLINICAL INFORMATION: Leg pain. History of DVT. TECHNIQUE: Duplex doppler imaging was performed through the veins of both lower extremities using yomi ous compression and other maneuvers. COMPARISON: None. FINDINGS: Right Common Femoral vein: Negative. Right Femoral vein: Negative. Right Popliteal vein: Negative. Right Calf veins: Negative. Left Common Femoral vein: Evaluation positive for thrombus. Left Femoral vein: Negative. Left Popliteal vein: Negative. Left Calf veins: Negative. Additional findings: None. IMPRESSION: 1. Evaluation positive for nonocclusive thrombus within the left common femoral vein 2. No evidence of thrombus within the right lower extremity. Signer Name: Bev Harper MD Signed: 08/19/2020 11:13 PM Workstation Name: [id number]
--- NOTE | 2020-08-19 23:39 | Ultrasound Report ---
ULTRASOUND RENAL INDICATION / CLINICAL INFORMATION: Acute renal failure COMPARISON: CT of the abdomen and pelvis, 08/19/2020 FINDINGS: RIGHT KIDNEY: Length = 11.2 cm. - Echogenicity: Within normal limits - Cortical Thickness: 0.8 cm - Hydronephrosis: There is moderate hydronephrosis - Cyst / Mass: None. - Stones: None seen. LEFT KIDNEY: Length = 14.2 cm. - Echogenicity: Within normal limits - Cortical Thickness: 1.2 cm - Hydronephrosis: There is moderate hydronephrosis - Cyst / Mass: None. - Stones: None seen. URINARY BLADDER: The urinary bladder is decompressed around a Bowman catheter. FREE FLUID: None. ADDITIONAL FINDINGS: None. IMPRESSION: 1. Moderate bilateral hydronephrosis. Signer Name: Bev Harper MD Signed: 08/19/2020 11:35 PM Workstation Name: [id number]
[2020-08-20] MEDS: niCARdipine DRIP 40 MG/200 ML BAG IV SCH (03:00)
[2020-08-20 08:07] LABS: Basophils # (Auto) 0.1 K/mm3 (0.0-0.1); Basophils % (Auto) 0.6 % (0.0-1.8); Eosinophils % (Auto) 0.1 % (0.0-4.3); Hematocrit 27.8 % (30.3-42.9); Hemoglobin 9.2 gm/dl (10.1-14.3); Lymphocytes # (Auto) 2.1 K/mm3 (1.2-5.4); Lymphocytes % (Auto) 18.9 % (13.4-35.0); Mean Corpuscular HGB Conc 33 % (30-34); Mean Corpuscular Volume 99 fl (79-97); Monocytes # (Auto) 1.1 K/mm3 (0.0-0.8); Monocytes % (Auto) 10.2 % (0.0-7.3); Platelet Count 243 K/mm3 (140-440); Red Cell Distribution Width 14.6 % (13.2-15.2)
[2020-08-20 08:27] LABS: Calcium 9.6 mg/dL (8.4-10.2)
[2020-08-20] MEDS ORDERED: SODIUM POLYSTYRENE 15 GM/60 ML ORAL LIQD PO NR (08:41)
--- NOTE | 2020-08-20 10:28 | Consultation ---
History of Present Illness - Reason for Consult Consult date: 08/20/20 - History of Present Illness 65 YO Female with Vascular Dementia, Cerebral Atherosclerosis, HTN, RLE DVT not taking therapeutic anticoagulation presents to ED for evaluation. Patient has diminished cognition at the time my evaluation is unable to provide history. chart review--- As per , the patient has experienced increased worsening and confusion over the past 1 week with concomitant acutely worsening of con fusion over the past 24 hours (hx per chart review--- unable to obtain from pt) nurse at bedside--hall placed abd soft 14F coude draining saadia urine CTAP-- bilat hydro, hall balloon in bladder a/p hydronephrosis renal insuff----Cr 7---now 6--trending down home with hall when stable cystogram to eval for reflux may need urodynamics as outpt no surgical intervention at this time Past History Past Medical History: hypertension, other (See HPI) Past Surgical History: No surgical history, Other (Reviewed) Social history: , lives with family. denies: smoking, alcohol abuse, prescription drug abuse Family history: hypertension Medications and Allergies Allergies Allergy/AdvReac Type Severity Reaction Status Date / Time No Known Allergies Allergy Verified 08/19/20 15:50 Home Medications Medication Instructions Recorded Confirmed Last Taken Type EPINEPHrine (NF) [Epipen (Nf)] 0.3 mg IM PRN #1 syringekit 04/27/14 Unknown Rx Prednisone [Prednisone 10 mg 10 mg PO .TAPER #1 tab.ds.pk 04/27/14 Unknown Rx (6-Day Pack, 21 Tabs)] Azithromycin [Zithromax Z-JANES] 1 dose PO DAILY 5 Days tab 07/09/15 Unknown Rx Ibuprofen [Motrin] 800 mg PO Q8HR PRN #30 tablet 07/09/15 Unknown Rx traMADoL [Ultram 50 MG tab] 50 mg PO Q6HR PRN #20 tablet 07/09/15 Unknown Rx Active Meds: Active Medications Albuterol (Albuterol 2.5 Mg/3 Ml Nebu) 2.5 mg IH Q3HRT PRN PRN Reason: Shortness Of Breath Amlodipine Besylate (Amlodipine 5 Mg Tab) 5 mg PO QDAY RADHA Nicardipine/Sodium Chloride (Cardene Drip 40 Mg/200 Ml) 40 mg in 200 mls @ 25 mls/hr IV TITR RADHA; Protocol Last Titration: 08/20/20 09:30 Dose: 0 mg/hr, 0 mls/hr Documented by: Sodium Chloride (Sodium Chloride 0.9% 10 Ml Flush Syringe) 10 ml IV BID RADHA Last Admin: 08/19/20 22:38 Dose: 10 ml Documented by: Sodium Chloride (Sodium Chloride 0.9% 10 Ml Flush Syringe) 10 ml IV PRN PRN PRN Reason: LINE FLUSH Sodium Polystyrene Sulfonate (Sodium Polystyrene 15 Gm/60 Ml Oral Liqd) 30 gm PO ONCE NR Stop: 08/20/20 11:00 Tramadol HCl (Tramadol 50 Mg Tab) 50 mg PO Q6H PRN PRN Reason: Pain, Moderate (4-6) Exam - Constitutional Vitals: Temp Pulse Resp BP Pulse Ox 99.9 F H 109 H 17 131/59 95 08/20/20 09:55 08/20/20 09:50 08/20/20 09:50 08/20/20 06:31 08/20/20 06:31 Results - Labs CBC & Chem 7: 08/20/20 07:30 08/20/20 07:30 Labs: Abnormal lab results 08/19/20 08/19/20 08/19/20 Range/Units 16:14 16:14 17:28 WBC (4.5-11.0) K/mm3 RBC 2.79 L (3.65-5.03) M/mm3 Hgb 9.2 L (10.1-14.3) gm/dl Hct 27.2 L (30.3-42.9) % MCV (79-97) fl MCH 33 H (28-32) pg Lymph % (Auto) 12.6 L (13.4-35.0) % Walker % (Auto) 7.8 H (0.0-7.3) % Walker # (Auto) (0.0-0.8) K/mm3 Seg Neutrophils % 78.6 H (40.0-70.0) % Seg Neutrophils # 8.4 H (1.8-7.7) K/mm3 Sodium (137-145) mmol/L Potassium 5.6 H (3.6-5.0) mmol/L Chloride (98-107) mmol/L Carbon Dioxide 21 L (22-30) mmol/L BUN 59 H (7-17) mg/dL Creatinine 7.4 H (0.6-1.2) mg/dL Glucose 110 H (65-100) mg/dL Total Creatine Kinase 184 H (30-135) units/L PTH Intact 103.8 H (15-65) pg/mL Urine pH (5.0-7.0) Urine WBC (Auto) (0.0-6.0) /HPF 08/19/20 08/19/20 08/20/20 Range/Units 18:31 19:46 07:30 WBC 11.1 H (4.5-11.0) K/mm3 RBC 2.80 L (3.65-5.03) M/mm3 Hgb 9.2 L (10.1-14.3) gm/dl Hct 27.8 L (30.3-42.9) % MCV 99 H (79-97) fl MCH 33 H (28-32) pg Lymph % (Auto) (13.4-35.0) % Walker % (Auto) 10.2 H (0.0-7.3) % Walker # (Auto) 1.1 H (0.0-0.8) K/mm3 Seg Neutrophils % 70.2 H (40.0-70.0) % Seg Neutrophils # 7.8 H (1.8-7.7) K/mm3 Sodium (137-145) mmol/L Potassium 5.4 H (3.6-5.0) mmol/L Chloride (98-107) mmol/L Carbon Dioxide (22-30) mmol/L BUN 58 H (7-17) mg/dL Creatinine 7.3 H (0.6-1.2) mg/dL Glucose 103 H (65-100) mg/dL Total Creatine Kinase (30-135) units/L PTH Intact (15-65) pg/mL Urine pH 8.0 H (5.0-7.0) Urine WBC (Auto) 7.0 H (0.0-6.0) /HPF 08/20/20 Range/Units 07:30 WBC (4.5-11.0) K/mm3 RBC (3.65-5.03) M/mm3 Hgb (10.1-14.3) gm/dl Hct (30.3-42.9) % MCV (79-97) fl MCH (28-32) pg Lymph % (Auto) (13.4-35.0) % Walker % (Auto) (0.0-7.3) % Walker # (Auto) (0.0-0.8) K/mm3 Seg Neutrophils % (40.0-70.0) % Seg Neutrophils # (1.8-7.7) K/mm3 Sodium 149 H (137-145) mmol/L Potassium 5.1 H (3.6-5.0) mmol/L Chloride 109.2 H (98-107) mmol/L Carbon Dioxide (22-30) mmol/L BUN 57 H (7-17) mg/dL Creatinine 6.5 H (0.6-1.2) mg/dL Glucose (65-100) mg/dL Total Creatine Kinase (30-135) units/L PTH Intact (15-65) pg/mL Urine pH (5.0-7.0) Urine WBC (Auto) (0.0-6.0) /HPF
[2020-08-20] MEDS ORDERED: HEPARIN 10,000 UNITS/10 ML VIAL IV ONE (11:30)
--- NOTE | 2020-08-20 11:40 | Progress Note ---
<ALLYNJEAN RaheemSathish - Last Filed: 08/20/20 17:05> Assessment and Plan Assessment and plan: This is a 65-year-old female with vascular dementia, cerebral sclerosis, nonambulatory/bedbound, hypertension, debility, right lower leg DVT admitted with JENNIFER, hypertensive emergency, hypertensive encephalopathy, metabolic acidosis, hyperkalemia Hypertensive emergency Hypertensive encephalopathy Acute kidney injury Left lower leg DVT Leukocytosis Hypernatremia Hyperchloremia Cerebral atherosclerosis Vascular dementia Metabolic acidosis History of right lower leg DVT -CCM, nephrology, urology and vascular surgery consulted, appreciated recommendations -COVID 19 PCR pending -s/p cardene gtt -Started on PO antihypertensive -ST eval pending, RN unable to compete bedside swallow -Assessment for HD per Nephrology -Strict I&O -Daily weights -Avoid nephrotoxic medications -Renally dose medications -Heparin gtt -MIVF per nephro -08/19 CT head limited by motion and positioning however there is mild microvascular angiopathic without clear CT evidence of acute intracranial hemorrhage -08/09 CT abdomen/pelvis shows moderate right hydronephrosis and dilation of the proximal to mid right ureter, moderate left hydroureteronephrosis with no obvious obstructing stone or lesion, mildly prominent left groin, asymmetric soft tissue swelling involving the visualized left anterior thigh and left flank, mild deep prominent left groin lymph nodes which are nonspecific and likely reactive -08/19 renal ultrasound shows moderate bilateral hydronephrosis -08/19 bilateral lower extremity ultrasound shows positive nonocclusive thrombus in the left common femoral vein without evidence of thrombus within the right lower extremity -08/20 Cystogram pending -Trend CBC, BMP DVT/GI prophylaxis: PPI, heparin gtt, SCDs to BLE while in bed Dispo: med/surg with remote tele pending COVID 19 PCR History Interval history: This is a 65-year-old female with vascular dementia, cerebral arthrosclerosis, nonambulatory/bedbound, hypertension, debility, right lower leg DVT (not on therapeutic anticoagulation) presented to the emergency department on 08/19 with complaints of increased worsening of confusion of the past week which increased over the past 24 hours per her via EMS. Work-up in the emergency department revealed JENNIFER with ATN, systolic blood pressure of 203 consistent with hypertensive emergency complicated by hypertensive encephalopathy and metabolic acidosis. Consults placed to nephrology and [facility]. Patient was started on a Cardene drip and transferred to ICU. Patient admitted to the hospital service with hypertensive emergency, acute kidney injury, hypertensive encephalopathy and hyperkalemia. 08/20: Patient noted to have a left lower leg DVT and started on heparin drip. P atient is confused therefore nurse was asked to place a Dobbhoff tube. Speech evaluation ordered as bedside swallow evaluation could not be completed due to AMS. Patient has been titrated off Cardene drip and has been started on p.o. antihypertensive. Patient has been downgraded from ICU to telemetry. Of note patient received 4 to 5 mg of Ativan overnight in the emergency room. This morning patient has hyperchloremia, hypernatremia, hyperchloremia and her kidney function tests slightly improved. Patient received Kayexalate. Urology was consulted today. We will give the patient 1 LR bolus and prn labetalol has been ordered Hospitalist Physical - Constitutional Vitals: Temp Pulse Resp BP Pulse Ox 99.9 F H 109 H 17 131/59 95 08/20/20 09:55 08/20/20 09:50 08/20/20 09:50 08/20/20 06:31 08/20/20 06:31 General appearance: Present: no acute distress, obese - EENT Eyes: Present: PERRL, EOM intact - Neck Neck: Present: normal ROM - Respiratory Respiratory effort: normal Respiratory: bilateral: diminished - Cardiovascular Rhythm: regular Heart Sounds: Present: S1 & S2. Absent: systolic murmur, diastolic murmur - Extremities Extremities: no ischemia, pulses intact, pulses symmetrical, No edema, normal temperature, normal color Peripheral Pulses: within normal limits - Abdominal General gastrointestinal: soft, non-tender, non-distended, normal bowel sounds - Integumentary Integumentary: Present: warm, dry - Psychiatric Psychiatric: other (minimally interactive) - Neurologic Neurologic: moves all extremities, other (intermittantly interactive) - Allied Health Allied health notes reviewed: nursing, RT HEART Score - HEART Score Troponin: Troponin T < 0.010 ng/mL (0.00-0.029) 08/19/20 16:14 Results - Labs CBC & Chem 7: 08/20/20 14:40 08/20/20 07:30 Labs: Laboratory Last Values WBC 11.1 K/mm3 (4.5-11.0) H 08/20/20 07:30 RBC 2.80 M/mm3 (3.65-5.03) L 08/20/20 07:30 Hgb 9.2 gm/dl (10.1-14.3) L 08/20/20 07:30 Hct 27.8 % (30.3-42.9) L 08/20/20 07:30 MCV 99 fl (79-97) H 08/20/20 07:30 MCH 33 pg (28-32) H 08/20/20 07:30 MCHC 33 % (30-34) 08/20/20 07:30 RDW 14.6 % (13.2-15.2) 08/20/20 07:30 Plt Count 243 K/mm3 (140-440) 08/20/20 07:30 Lymph % (Auto) 18.9 % (13.4-35.0) 08/20/20 07:30 Randall % (Auto) 10.2 % (0.0-7.3) H 08/20/20 07:30 Eos % (Auto) 0.1 % (0.0-4.3) 08/20/20 07:30 Baso % (Auto) 0.6 % (0.0-1.8) 08/20/20 07:30 Lymph # (Auto) 2.1 K/mm3 (1.2-5.4) 08/20/20 07:30 Randall # (Auto) 1.1 K/mm3 (0.0-0.8) H 08/20/20 07:30 Eos # (Auto) 0.0 K/mm3 (0.0-0.4) 08/20/20 07:30 Baso # (Auto) 0.1 K/mm3 (0.0-0.1) 08/20/20 07:30 Seg Neutrophils % 70.2 % (40.0-70.0) H 08/20/20 07:30 Seg Neutrophils # 7.8 K/mm3 (1.8-7.7) H 08/20/20 07:30 PT 14.6 Sec. (12.2-14.9) 08/19/20 16:14 INR 1.08 (0.87-1.13) 08/19/20 16:14 APTT 24.3 Sec. (24.2-36.6) 08/19/20 16:14 Thrombin Time 16.9 Sec. (15.1-19.6) 08/19/20 16:14 Sodium 149 mmol/L (137-145) H 08/20/20 07:30 Potassium 5.1 mmol/L (3.6-5.0) H 08/20/20 07:30 Chloride 109.2 mmol/L (98-107) H 08/20/20 07:30 Carbon Dioxide 24 mmol/L (22-30) 08/20/20 07:30 Anion Gap 21 mmol/L 08/20/20 07:30 BUN 57 mg/dL (7-17) H 08/20/20 07:30 Creatinine 6.5 mg/dL (0.6-1.2) H 08/20/20 07:30 Estimated GFR 8 ml/min 08/20/20 07:30 BUN/Creatinine Ratio 9 % 08/20/20 07:30 Glucose 87 mg/dL (65-100) 08/20/20 07:30 POC Glucose 94 mg/dL (70-105) 08/19/20 15:45 Calcium 9.6 mg/dL (8.4-10.2) 08/20/20 07:30 Total Bilirubin 0.30 mg/dL (0.1-1.2) 08/19/20 16:14 AST 11 units/L (5-40) 08/19/20 16:14 ALT 9 units/L (7-56) 08/19/20 16:14 Alkaline Phosphatase 78 units/L (35-129) 08/19/20 16:14 Ammonia 40.0 umol/L (25-60) 08/19/20 19:46 Total Creatine Kinase 184 units/L (30-135) H 08/19/20 16:14 CK-MB (CK-2) 1.9 ng/mL (0.0-4.0) 08/19/20 16:14 CK-MB (CK-2) Rel Index 1.0 (0-4) 08/19/20 16:14 Troponin T < 0.010 ng/mL (0.00-0.029) 08/19/20 16:14 Total Protein 7.6 g/dL (6.3-8.2) 08/19/20 16:14 Albumin 4.3 g/dL (3.9-5) 08/19/20 16:14 Albumin/Globulin Ratio 1.3 % 08/19/20 16:14 PTH Intact 103.8 pg/mL (15-65) H 08/19/20 17:28 Urine Color Straw (Yellow) 08/19/20 18:31 Urine Turbidity Clear (Clear) 08/19/20 18:31 Urine pH 8.0 (5.0-7.0) H 08/19/20 18:31 Ur Specific [place] 1.011 (1.003-1.030) 08/19/20 18:31 Urine Protein 100 mg/dl mg/dL (Negative) 08/19/20 18:31 Urine Glucose (UA) Neg mg/dL (Negative) 08/19/20 18:31 Urine Ketones Tr mg/dL (Negative) 08/19/20 18:31 Urine Blood Sm (Negative) 08/19/20 18:31 Urine Nitrite Neg (Negative) 08/19/20 18:31 Urine Bilirubin Neg (Negative) 08/19/20 18:31 Urine Urobilinogen < 2.0 mg/dL (<2.0) 08/19/20 18:31 Ur Leukocyte Esterase Tr (Negative) 08/19/20 18:31 Urine WBC (Auto) 7.0 /HPF (0.0-6.0) H 08/19/20 18:31 Urine RBC (Auto) 4.0 /HPF (0.0-6.0) 08/19/20 18:31 U Epithel Cells (Auto) 3.0 /HPF (0-13.0) 08/19/20 18:31 Urine Opiates Screen Negative 08/19/20 18:31 Urine Methadone Screen Negative 08/19/20 18:31 Ur Barbiturates Screen Negative 08/19/20 18:31 Ur Phencyclidine Scrn Negative 08/19/20 18:31 Ur Amphetamines Screen Negative 08/19/20 18:31 U Benzodiazepines Scrn Negative 08/19/20 18:31 Urine Cocaine Screen Negative 08/19/20 18:31 U Marijuana (THC) Screen Negative 08/19/20 18:31 Drugs of Abuse Note Disclamer 08/19/20 18:31 Plasma/Serum Alcohol < 0.01 % (0-0.07) 08/19/20 16:14 Hepatitis A IgM Ab Non-reactive (NonReactive) 08/19/20 17:28 Hep Bs Antigen Non-reactive (Negative) 08/19/20 17:28 Hep B Core IgM Ab Non-reactive (NonReactive) 08/19/20 17:28 Hepatitis C Antibody Non-reactive (NonReactive) 08/19/20 17:28 HIV 1&2 Antibody Rapid Non react (Non React) 08/19/20 17:28 HIV P24 Antigen Non react (Non React) 08/19/20 17:28 Active Medications - Current Medications Current Medications: Generic Name Dose Route Start Last Admin Trade Name Freq PRN Reason Stop Dose Admin Albuterol 2.5 mg 08/19/20 19:45 Albuterol 2.5 Mg/3 Ml Nebu IH Q3HRT PRN Shortness Of Breath Amlodipine Besylate 5 mg 08/20/20 10:00 Amlodipine 5 Mg Tab PO QDAY RADHA Heparin Sodium (Porcine) 3,900 unit 08/20/20 11:30 Heparin 10,000 Units/10 Ml Vial 40 unit/kg (3900 unit) IV Q6H PRN Anti-Xa Assay < 0.1 units/ml Nicardipine/Sodium Chloride 40 mg in 200 mls @ 25 mls/hr 08/19/20 20:00 08/20/20 09:30 Cardene Drip 40 Mg/200 Ml IV 0 mg/hr TITR RADHA 0 mls/hr Titration Protocol 5 MG/HR Cefazolin Sodium 2 gm/ Sodium 100 mls @ 200 mls/hr 08/20/20 10:31 Chloride IV 08/20/20 12:00 ONCE NR Protocol Heparin Sodium/Sodium Chloride 25,000 unit in 500 mls @ 29 mls/hr 08/20/20 11:30 Heparin/ 0.45% Nacl-25,000 Unit/500 Ml IV TITR RADHA Protocol 1,450 UNITS/HR Sodium Chloride 10 ml 08/19/20 22:00 08/19/20 22:38 Sodium Chloride 0.9% 10 Ml Flush Syringe IV 10 ml BID RADHA Administration Sodium Chloride 10 ml 08/19/20 19:45 Sodium Chloride 0.9% 10 Ml Flush Syringe IV PRN PRN LINE FLUSH Tramadol HCl 50 mg 08/19/20 20:03 Tramadol 50 Mg Tab PO Q6H PRN Pain, Moderate (4-6) <OKEH,CARLOS E - Last Filed: 08/28/20 07:23> Assessment and Plan Assessment and plan: I saw and evaluated the patient. I agree with the findings and the plan of care as documented in the Nurse Practitioner's~note, with the following corrections and additions. Hospitalist Physical - Constitutional Vitals: Temp Pulse Resp BP Pulse Ox 99.2 F 95 H 19 124/64 99 08/27/20 10:47 08/27/20 10:47 08/27/20 10:47 08/27/20 10:47 08/27/20 10:47 HEART Score - HEART Score Troponin: Troponin T < 0.010 ng/mL (0.00-0.029) 08/19/20 16:14 Results - Labs CBC & Chem 7: 08/27/20 04:58 08/27/20 04:58 Labs: Laboratory Last Values WBC 8.5 K/mm3 (4.5-11.0) 08/27/20 04:58 RBC 2.55 M/mm3 (3.65-5.03) L 08/27/20 04:58 Hgb 8.5 gm/dl (10.1-14.3) L 08/27/20 04:58 Hct 24.9 % (30.3-42.9) L 08/27/20 04:58 MCV 98 fl (79-97) H 08/27/20 04:58 MCH 33 pg (28-32) H 08/27/20 04:58 MCHC 34 % (30-34) 08/27/20 04:58 RDW 14.1 % (13.2-15.2) 08/27/20 04:58 Plt Count 250 K/mm3 (140-440) 08/27/20 04:58 Lymph % (Auto) 24.7 % (13.4-35.0) 08/25/20 15:11 Randall % (Auto) 7.9 % (0.0-7.3) H 08/25/20 15:11 Eos % (Auto) 3.6 % (0.0-4.3) 08/25/20 15:11 Baso % (Auto) 0.4 % (0.0-1.8) 08/25/20 15:11 Lymph # (Auto) 2.4 K/mm3 (1.2-5.4) 08/25/20 15:11 Randall # (Auto) 0.8 K/mm3 (0.0-0.8) 08/25/20 15:11 Eos # (Auto) 0.3 K/mm3 (0.0-0.4) 08/25/20 15:11 Baso # (Auto) 0.0 K/mm3 (0.0-0.1) 08/25/20 15:11 Seg Neutrophils % 63.4 % (40.0-70.0) 08/25/20 15:11 Seg Neutrophils # 6.2 K/mm3 (1.8-7.7) 08/25/20 15:11 PT 14.9 Sec. (12.2-14.9) 08/20/20 14:40 INR 1.11 (0.87-1.13) 08/20/20 14:40 APTT 28.7 Sec. (24.2-36.6) 08/20/20 14:40 Thrombin Time 16.9 Sec. (15.1-19.6) 08/19/20 16:14 Heparin Anti-Xa Level 0.31 U.I./ml (0.3-0.7) 08/25/20 23:23 Sodium 138 mmol/L (137-145) 08/27/20 04:58 Potassium 3.3 mmol/L (3.6-5.0) L 08/27/20 04:58 Chloride 100.8 mmol/L (98-107) 08/27/20 04:58 Carbon Dioxide 27 mmol/L (22-30) 08/27/20 04:58 Anion Gap 14 mmol/L 08/27/20 04:58 BUN 19 mg/dL (7-17) H 08/27/20 04:58 Creatinine 1.3 mg/dL (0.6-1.2) H 08/27/20 04:58 Estimated GFR 50 ml/min 08/27/20 04:58 BUN/Creatinine Ratio 15 % 08/27/20 04:58 Glucose 97 mg/dL (65-100) 08/27/20 04:58 POC Glucose 106 mg/dL (70-105) H 08/27/20 11:30 Calcium 9.0 mg/dL (8.4-10.2) 08/27/20 04:58 Total Bilirubin 0.30 mg/dL (0.1-1.2) 08/19/20 16:14 AST 11 units/L (5-40) 08/19/20 16:14 ALT 9 units/L (7-56) 08/19/20 16:14 Alkaline Phosphatase 78 units/L (35-129) 08/19/20 16:14 Ammonia 40.0 umol/L (25-60) 08/19/20 19:46 Total Creatine Kinase 229 units/L (30-135) H 08/20/20 18:54 CK-MB (CK-2) 1.9 ng/mL (0.0-4.0) 08/19/20 16:14 CK-MB (CK-2) Rel Index 1.0 (0-4) 08/19/20 16:14 Troponin T < 0.010 ng/mL (0.00-0.029) 08/19/20 16:14 Total Protein 7.6 g/dL (6.3-8.2) 08/19/20 16:14 Albumin 4.3 g/dL (3.9-5) 08/19/20 16:14 Albumin/Globulin Ratio 1.3 % 08/19/20 16:14 PTH Intact 103.8 pg/mL (15-65) H 08/19/20 17:28 Urine Color Straw (Yellow) 08/19/20 18:31 Urine Turbidity Clear (Clear) 08/19/20 18:31 Urine pH 8.0 (5.0-7.0) H 08/19/20 18:31 Ur Specific [place] 1.011 (1.003-1.030) 08/19/20 18:31 Urine Protein 100 mg/dl mg/dL (Negative) 08/19/20 18:31 Urine Glucose (UA) Neg mg/dL (Negative) 08/19/20 18:31 Urine Ketones Tr mg/dL (Negative) 08/19/20 18:31 Urine Blood Sm (Negative) 08/19/20 18:31 Urine Nitrite Neg (Negative) 08/19/20 18:31 Urine Bilirubin Neg (Negative) 08/19/20 18:31 Urine Urobilinogen < 2.0 mg/dL (<2.0) 08/19/20 18:31 Ur Leukocyte Esterase Tr (Negative) 08/19/20 18:31 Urine WBC (Auto) 7.0 /HPF (0.0-6.0) H 08/19/20 18:31 Urine RBC (Auto) 4.0 /HPF (0.0-6.0) 08/19/20 18:31 U Epithel Cells (Auto) 3.0 /HPF (0-13.0) 08/19/20 18:31 Urine Creatinine 81.3 mg/dL (0.1-20.0) H 08/20/20 16:15 Urine Sodium 93 mmol/L 08/20/20 16:15 Urine Opiates Screen Negative 08/19/20 18:31 Urine Methadone Screen Negative 08/19/20 18:31 Ur Barbiturates Screen Negative 08/19/20 18:31 Ur Phencyclidine Scrn Negative 08/19/20 18:31 Ur Amphetamines Screen Negative 08/19/20 18:31 U Benzodiazepines Scrn Negative 08/19/20 18:31 Urine Cocaine Screen Negative 08/19/20 18:31 U Marijuana (THC) Screen Negative 08/19/20 18:31 Drugs of Abuse Note Disclamer 08/19/20 18:31 Plasma/Serum Alcohol < 0.01 % (0-0.07) 08/19/20 16:14 RICHY Screen Negative (Negative) 08/19/20 17:28 Proteinase 3 (PR3) Ab <1.0 AI (<1.0) 08/19/20 17:28 Myeloperoxidase Ab <1.0 AI (<1.0) 08/19/20 17:28 Complement C3 205 mg/dL (83-193) H 08/19/20 17:28 Complement C4 57 mg/dL (15-57) 08/19/20 17:28 Coronavirus (PCR) Negative (Negative) 08/20/20 Unknown Hepatitis A IgM Ab Non-reactive (NonReactive) 08/19/20 17:28 Hep Bs Antigen Non-reactive (Negative) 08/19/20 17:28 Hep B Core IgM Ab Non-reactive (NonReactive) 08/19/20 17:28 Hepatitis C Antibody Non-reactive (NonReactive) 08/19/20 17:28 HIV 1&2 Antibody Rapid Non react (Non React) 08/19/20 17:28 HIV P24 Antigen Non react (Non React) 08/19/20 17:28 Bowman/IV: Voiding Method Toilet Nutrition/Malnutrition Assess - Dietary Evaluation Nutrition/Malnutrition Findings: Nutrition Notes Start: 08/21/20 07:38 Freq: Status: Discharge Protocol: Document 08/27/20 11:11 VANDANA (Rec: 08/27/20 11:12 VANDANA [id number]) Nutrition Notes Initial or Follow up Brief Note Subjective/Other Information Pt consumed 100% of two meals on 08/25. Scheduled for D/C today. Nutrition Intervention Revisit per MD consult or patient Sign Off request:
[2020-08-20] MEDS ORDERED: DEXTROSE 50% IN WATER (25GM) 50 ML SYRINGE IV PRN (12:15)
[2020-08-20] MEDS ORDERED: LACTATED RINGERS 1,000 ML IV ONE (12:45)
--- NOTE | 2020-08-20 14:33 | Consultation ---
History of Present Illness Consult date: 08/20/20 History of present illness: 65 YO Female with Vascular Dementia, Cerebral Atherosclerosis, HTN, Debility, RLE DVT not taking therapeutic anticoagulation presents to ED for evaluation. Patient has diminished cognition at the time my evaluation is unable to provide history. Patient history provided by the patient who is available via telephone for interview. As per , the patient has experienced increased worsening and confusion over the past 1 week with concomitant acutely worsening of confusion over the past 24 hours. Patient is currently bedbound, n onambulatory, and requires 6/6 assistance with activities of daily living, and is unable to make needs known or follow simple commands. EMS notified and upon arrival the patient was found to be in distress and subsequently transported to [facility] for further care and evaluation of the aforementioned symptoms. Patient found to have JENNIFER with ATN with a serum creatinine of 7.4. The patient was also found to have a systolic blood pressure of 203 which is consistent with hypertensive emergency which was complicated by hypertensive encephalopathy, metabolic acidosis. Nephrology team consulted in ED. Critical care team consulted. Patient admitted to ICU and initiated on Cardene drip due to increased risk of further worsening symptoms. No further history is obtainable. Patient has diminished cognition but has a positive gag reflex and is able to protect her airway without difficulty. No reports of fever, chills, chest pain, palpitation, productive cough, skin rash, recent ill contacts, trauma, or known exposure to COVID-19. Patient awake at this time. Resting on room air. O2 saturation 98%. No complaint of chest pain, shortness of breath or cough. Patient found to have left leg DVT. Patient started on I/V Heparin. Chest xray done 08/19/20 reported No acute findings. Duplex scan of Lower extremity 08/19/20 reported Evaluation positive for nonocclusive thrombus within the left common femoral vein . No evidence of thrombus within the right lower extremity. Patient is on I/V Heparin, Famotidine and albuterol inhaler. Past History Past Medical History: hypertension, other (See HPI) Past Surgical History: No surgical history, Other (Reviewed) Social history: , lives with family. denies: smoking, alcohol abuse, prescription drug abuse Family history: hypertension Medications and Allergies Allergies Allergy/AdvReac Type Severity Reaction Status Date / Time No Known Allergies Allergy Verified 08/19/20 15:50 Home Medications Medication Instructions Recorded Confirmed Last Taken Type EPINEPHrine (NF) [Epipen (Nf)] 0.3 mg IM PRN #1 syringekit 04/27/14 Unknown Rx Prednisone [Prednisone 10 mg 10 mg PO .TAPER #1 tab.ds.pk 04/27/14 Unknown Rx (6-Day Pack, 21 Tabs)] Azithromycin [Zithromax Z-JANES] 1 dose PO DAILY 5 Days tab 07/09/15 Unknown Rx Ibuprofen [Motrin] 800 mg PO Q8HR PRN #30 tablet 07/09/15 Unknown Rx traMADoL [Ultram 50 MG tab] 50 mg PO Q6HR PRN #20 tablet 07/09/15 Unknown Rx Active Meds: Active Medications Acetaminophen (Acetaminophen 325 Mg Tab) 650 mg PO Q4H PRN PRN Reason: Pain MILD(1-3)/Fever >100.5/[place] Albuterol (Albuterol 2.5 Mg/3 Ml Nebu) 2.5 mg IH Q3HRT PRN PRN Reason: Shortness Of Breath Amlodipine Besylate (Amlodipine 5 Mg Tab) 5 mg PO QDAY RADHA Dextrose (Dextrose 50% In Water (25gm) 50 Ml Syringe) 50 ml IV Q30MIN PRN; Protocol PRN Reason: Hypoglycemia Famotidine (Famotidine 20 Mg/2 Ml Inj) 10 mg IV BID RADHA Heparin Sodium (Porcine) (Heparin 10,000 Units/10 Ml Vial) 3,900 unit 40 un it/kg (3900 unit) IV Q6H PRN PRN Reason: Anti-Xa Assay < 0.1 units/ml Nicardipine/Sodium Chloride (Cardene Drip 40 Mg/200 Ml) 40 mg in 200 mls @ 25 mls/hr IV TITR RADHA; Protocol Last Titration: 08/20/20 09:30 Dose: 0 mg/hr, 0 mls/hr Documented by: Heparin Sodium/Sodium Chloride (Heparin/ 0.45% Nacl-25,000 Unit/500 Ml) 25,000 unit in 500 mls @ 29 mls/hr IV TITR RADHA; Protocol Labetalol HCl (Labetalol 20 Mg/4 Ml Inj) 10 mg IV Q6HR PRN PRN Reason: Hypertension Ondansetron HCl (Ondansetron 4 Mg/2 Ml Inj) 4 mg IV Q8H PRN PRN Reason: Nausea And Vomiting Sodium Chloride (Sodium Chloride 0.9% 10 Ml Flush Syringe) 10 ml IV BID RADHA Last Admin: 08/19/20 22:38 Dose: 10 ml Documented by: Sodium Chloride (Sodium Chloride 0.9% 10 Ml Flush Syringe) 10 ml IV PRN PRN PRN Reason: LINE FLUSH Tramadol HCl (Tramadol 50 Mg Tab) 50 mg PO Q6H PRN PRN Reason: Pain, Moderate (4-6) Review of Systems All systems: negative Physical Examination Vital signs: Vital Signs Pulse Resp BP Pulse Ox 90 18 174/73 100 08/19/20 16:02 08/19/20 16:02 08/19/20 16:02 08/19/20 16:02 General appearance: no acute distress, alert Eyes: non-icteric ENT: oropharynx moist Neck: supple, no JVD Effort: normal Ascultation: Bilateral: diminished breath sounds Cardiovascular: regular rate and rhythm Gastrointestinal: normoactive bowel sounds, soft, non-tender Integumentary: normal Extremities: edema, other (Swelling left leg.) Musculoskeletal: no deformities Gait: other (Resting in bed.) normal mental status, non-focal exam, pupils equal and round, CN II-XII normal mood appropriate Results - Laboratory Findings CBC and BMP: 08/21/20 04:08 08/21/20 04:08 PT/INR, D-dimer PT 14.6 Sec. (12.2-14.9) 08/19/20 16:14 INR 1.08 (0.87-1.13) 08/19/20 16:14 Abnormal lab findings: Abnormal Labs 08/19/20 08/19/20 08/19/20 16:14 16:14 17:28 WBC RBC 2.79 L Hgb 9.2 L Hct 27.2 L MCV MCH 33 H Lymph % (Auto) 12.6 L [place] % (Auto) 7.8 H [place] # (Auto) Seg Neutrophils % 78.6 H Seg Neutrophils # 8.4 H Sodium Potassium 5.6 H Chloride Carbon Dioxide 21 L BUN 59 H Creatinine 7.4 H Glucose 110 H Total Creatine Kinase 184 H PTH Intact 103.8 H Urine pH Urine WBC (Auto) 08/19/20 08/19/20 08/20/20 18:31 19:46 07:30 WBC 11.1 H RBC 2.80 L Hgb 9.2 L Hct 27.8 L MCV 99 H MCH 33 H Lymph % (Auto) [place] % (Auto) 10.2 H [place] # (Auto) 1.1 H Seg Neutrophils % 70.2 H Seg Neutrophils # 7.8 H Sodium Potassium 5.4 H Chloride Carbon Dioxide BUN 58 H Creatinine 7.3 H Glucose 103 H Total Creatine Kinase PTH Intact Urine pH 8.0 H Urine WBC (Auto) 7.0 H 08/20/20 07:30 WBC RBC Hgb Hct MCV MCH Lymph % (Auto) [place] % (Auto) [place] # (Auto) Seg Neutrophils % Seg Neutrophils # Sodium 149 H Potassium 5.1 H Chloride 109.2 H Carbon Dioxide BUN 57 H Creatinine 6.5 H Glucose Total Creatine Kinase PTH Intact Urine pH Urine WBC (Auto) - Diagnostic Findings Chest x-ray: report reviewed, image reviewed U/S of Legs: report reviewed, image reviewed Additional studies: CHEST 1 VIEW 08/19/2020 6:47 PM INDICATION / CLINICAL INFORMATION: stroke, AMS. COMPARISON: 07/09/2015 FINDINGS: SUPPORT DEVICES: None. HEART / MEDIASTINUM: Stable. LUNGS / PLEURA: No significant pulmonary or pleural abnormality. No pneumothorax. ADDITIONAL FINDINGS: No significant additional findings. IMPRESSION: 1. No acute findings. DUPLEX DOPPLER LOWER EXTREMITY VEINS, BILATERAL 08/19/20 INDICATION / CLINICAL INFORMATION: Leg pain. History of DVT. TECHNIQUE: Duplex doppler imaging was performed through the veins of both lower extremities using venous compression and other maneuvers. COMPARISON: None. FINDINGS: Right Common Femoral vein: Negative. Right Femoral vein: Negative. Right Popliteal vein: Negative. Right Calf veins: Negative. Left Common Femoral vein: Evaluation positive for thrombus. Left Femoral vein: Negative. Left Popliteal vein: Negative. Left Calf veins: Negative. Additional findings: None. IMPRESSION: 1. Evaluation positive for nonocclusive thrombus within the left common femoral vein 2. No evidence of thrombus within the right lower extremity. Assessment and Plan 65 YO Female with Vascular Dementia, Cerebral Atherosclerosis, HTN, Debility, RLE DVT not taking therapeutic anticoagulation presents to ED for evaluation. Patient has diminished cognition at the time my evaluation is unable to provide history. Patient history provided by the patient who is available via telephone for interview. As per , the patient has experienced increased worsening and confusion over the past 1 week with concomitant acutely worsening of confusion over the past 24 hours. Patient is currently bedbound, nonambulatory, and requires 6/6 assistance with activities of daily living, and is unable to make needs known or follow simple commands. EMS notified and upon arrival the patient was found to be in distress and subsequently transported to [facility] for further care and evaluation of the aforementioned symptoms. Patient found to have JENNIFER with ATN with a serum creatinine of 7.4. The patient was also found to have a systolic blood pressure of 203 which is consistent with hypertensive emergency which was complicated by hypertensive encephalopathy, metabolic acidosis. Nephrology team consulted in ED. Critical care team consulted. Patient admitted to ICU and initiated on Cardene drip due to increased risk of further worsening symptoms. No further history is obtainable. Patient has diminished cognition but has a positive gag reflex and is able to protect her airway without difficulty. No reports of fever, chills, chest pain, palpitation, productive cough, skin rash, recent ill contacts, trauma, or known exposure to COVID-19. Patient awake at this time. Resting on room air. O2 saturation 98%. No complaint of chest pain, shortness of breath or cough. Patient found to have left leg DVT. Patient started on I/V Heparin. Chest xray done 08/19/20 reported No acute findings. Duplex scan of Lower extremity 08/19/20 reported Evaluation positive for nonoc clusive thrombus within the left common femoral vein . No evidence of thrombus within the right lower extremity. Patient is on I/V Heparin, Famotidine and albuterol inhaler. - Patient Problems (1) Acute kidney injury (JENNIFER) with acute tubular necrosis (ATN) Current Visit: Yes Status: Acute Plan to address problem: Management as per nephrology. (2) Altered mental state Current Visit: Yes Status: Acute Qualifiers: Altered mental status type: delirium Qualified Code(s): R41.0 - Disorientation, unspecified Plan to address problem: Improving. Management as per primary care. (3) Hypertensive emergency Current Visit: Yes Status: Acute (4) Metabolic acidosis Current Visit: Yes Status: Acute Plan to address problem: Anion gap 21. Metabolic acidosis likely from renal failure. (5) Obesity (BMI 30.0-34.9) Current Visit: Yes Status: Acute Plan to address problem: Counselled to loose weight. Diet and exercise.
--- NOTE | 2020-08-20 15:15 | Event Note ---
Date: 08/20/20 Patient presents with bilateral hydronephrosis and had decompressive Bowman placed with declining creatinine. Vascular consulted for possible Vas-Cath placement. Creatinine declining. Please consult us again if we can be of assistance. Consider nephrology consult.
[2020-08-20 15:22] LABS: Hematocrit 26.7 % (30.3-42.9); Hemoglobin 8.9 gm/dl (10.1-14.3)
[2020-08-20 15:37] LABS: INR 1.11 (0.87-1.13)
[2020-08-20 15:38] LABS: Partial Thromboplastin Time 28.7 Sec. (24.2-36.6)
[2020-08-20 16:38] LABS: Creatinine,Urine 81.3 mg/dL (0.1-20.0)
[2020-08-20] MEDS: HEPARIN/ 0.45% NACL DRIP 25,000 UNIT/500 ML BAG IV SCH (16:43)
--- NOTE | 2020-08-20 16:50 | Consultation ---
History of Present Illness - Reason for Consult Consult date: 08/20/20 acute renal failure - History of Present Illness This is a 65-year-old woman with vascular dementia/cerebral atherosclerosis, hypertension, right lower extremity DVT who presented to the emergency department with one-week history of progressive confusion with acute worsening of confusion 24 hours prior to presentation. Upon workup in the emergency department patient was noted to be in acute renal failure, nephrology was consulted for further management. Patient is bed bound, nonambulatory at baseline and requires assistance with activities of daily living. She is unable to express her needs or follow simple commands. History was obtained from chart. Past History Past Medical History: hypertension, other (See HPI) Past Surgical History: No surgical history, Other (Reviewed) Social history: , lives with family. denies: smoking, alcohol abuse, prescription drug abuse Family history: hypertension Medications and Allergies Allergies Allergy/AdvReac Type Severity Reaction Status Date / Time No Known Allergies Allergy Verified 08/19/20 15:50 Home Medications Medication Instructions Recorded Confirmed Last Taken Type EPINEPHrine (NF) [Epipen (Nf)] 0.3 mg IM PRN #1 syringekit 04/27/14 Unknown Rx Prednisone [Prednisone 10 mg 10 mg PO .TAPER #1 tab.ds.pk 04/27/14 Unknown Rx (6-Day Pack, 21 Tabs)] Azithromycin [Zithromax Z-JANES] 1 dose PO DAILY 5 Days tab 07/09/15 Unknown Rx Ibuprofen [Motrin] 800 mg PO Q8HR PRN #30 tablet 07/09/15 Unknown Rx traMADoL [Ultram 50 MG tab] 50 mg PO Q6HR PRN #20 tablet 07/09/15 Unknown Rx Active Meds: Active Medications Acetaminophen (Acetaminophen 325 Mg Tab) 650 mg PO Q4H PRN PRN Reason: Pain MILD(1-3)/Fever >100.5/[place] Albuterol (Albuterol 2.5 Mg/3 Ml Nebu) 2.5 mg IH Q3HRT PRN PRN Reason: Shortness Of Breath Amlodipine Besylate (Amlodipine 5 Mg Tab) 5 mg PO QDAY RADHA Dextrose (Dextrose 50% In Water (25gm) 50 Ml Syringe) 50 ml IV Q30MIN PRN; Protocol PRN Reason: Hypoglycemia Famotidine (Famotidine 20 Mg/2 Ml Inj) 10 mg IV BID RADHA Heparin Sodium (Porcine) (Heparin 10,000 Units/10 Ml Vial) 3,900 unit 40 unit/kg (3900 unit) IV Q6H PRN PRN Reason: Anti-Xa Assay < 0.1 units/ml Nicardipine/Sodium Chloride (Cardene Drip 40 Mg/200 Ml) 40 mg in 200 mls @ 25 mls/hr IV TITR RADHA; Protocol Last Titration: 08/20/20 09:30 Dose: 0 mg/hr, 0 mls/hr Documented by: Heparin Sodium/Sodium Chloride (Heparin/ 0.45% Nacl-25,000 Unit/500 Ml) 25,000 unit in 500 mls @ 29 mls/hr IV TITR RADHA; Protocol Last Admin: 08/20/20 16:43 Dose: 1,450 units/hr, 29 mls/hr Documented by: Labetalol HCl (Labetalol 20 Mg/4 Ml Inj) 10 mg IV Q6HR PRN PRN Reason: Hypertension Ondansetron HCl (Ondansetron 4 Mg/2 Ml Inj) 4 mg IV Q8H PRN PRN Reason: Nausea And Vomiting Sodium Chloride (Sodium Chloride 0.9% 10 Ml Flush Syringe) 10 ml IV BID [facility] Last Admin: 08/20/20 15:56 Dose: 10 ml Documented by: Sodium Chloride (Sodium Chloride 0.9% 10 Ml Flush Syringe) 10 ml IV PRN PRN PRN Reason: LINE FLUSH Tramadol HCl (Tramadol 50 Mg Tab) 50 mg PO Q6H PRN PRN Reason: Pain, Moderate (4-6) Review of Systems ROS unobtainable: due to mental status Exam - Vital Signs Vital signs: Vital Signs Pulse Resp BP Pulse Ox 90 18 174/73 100 08/19/20 16:02 08/19/20 16:02 08/19/20 16:02 08/19/20 16:02 - Physical Exam Narrative exam: General: No acute distress Neck: Supple, no JVD Chest: Clear to auscultation bilaterally Heart: RRR, S1 and S2, no pericardial rub Abdomen: Soft, nontender, no renal bruit Extremity: No peripheral cyanosis, edema Neurological: Somnolent, unable to follow commands Dermatology: No skin rash Psych: Unable to assess Musculoskeletal: No joint effusion Results - Lab Results 08/20/20 14:40 08/20/20 07:30 Most recent lab results Calcium 9.6 mg/dL (8.4-10.2) 08/20/20 07:30 Urine Creatinine 81.3 mg/dL (0.1-20.0) H 08/20/20 16:15 Urine Sodium 93 mmol/L 08/20/20 16:15 Assessment and Plan Assessment Acute kidney injury, unknown baseline Bilateral hydronephrosis Hyperkalemia Hypernatremia Acute encephalopathy Vascular dementia Recommendations Creatinine improving following Bowman placement, continue Bowman Urology consulted and, recommendations reviewed No indication for dialysis at this time Monitor labs and urine output daily Start hypotonic fluids IV Check CPK Renally dose medications Avoid nephrotoxins Renal diet
[2020-08-20] MEDS: hydrALAZINE 20 MG/1 ML INJ IV PRN (19:15)
[2020-08-20] MEDS: traMADol 50 MG TAB PO PRN (21:04)
[2020-08-20] MEDS: FAMOTIDINE 20 MG/2 ML INJ IV SCH (21:20)
[2020-08-20] MEDS: amLODIPine 5 MG TAB PO SCH (21:26)
[2020-08-20] MEDS: D5W/0.45% NACL 1,000 ML IV SCH (23:17)
[2020-08-21 04:59] LABS: Hemoglobin 8.9 gm/dl (10.1-14.3); Mean Corpuscular HGB Conc 34 % (30-34); Mean Corpuscular Volume 98 fl (79-97); Platelet Count 249 K/mm3 (140-440); Red Blood Count 2.64 M/mm3 (3.65-5.03); Red Cell Distribution Width 14.5 % (13.2-15.2)
[2020-08-21 05:10] LABS: Calcium 9.3 mg/dL (8.4-10.2)
[2020-08-21] MEDS: amLODIPine 5 MG TAB PO SCH (12:26)
[2020-08-21] MEDS: FAMOTIDINE 20 MG/2 ML INJ IV SCH ×2 (12:26→21:46)
[2020-08-21] MEDS: D5W/0.45% NACL 1,000 ML IV SCH ×2 (12:26→23:32)
--- NOTE | 2020-08-21 12:26 | Progress Note ---
Assessment and Plan 65 YO Female with Vascular Dementia, Cerebral Atherosclerosis, HTN, Debility, RLE DVT not taking therapeutic anticoagulation presents to ED for evaluation. Patient has diminished cognition at the time my evaluation is unable to provide history. Patient history provided by the patient who is available via telephone for interview. As per , the patient has experienced increased worsening and confusion over the past 1 week with concomitant acutely worsening of confusion over the past 24 hours. Patient is currently bedbound, nonambulatory, and requires 6/6 assistance with activities of daily living, and is unable to make needs known or follow simple commands. EMS notified and upon arrival the patient was found to be in distress and subsequently transported to [facility] for further care and evaluation of the aforementioned symptoms. Patient found to have JENNIFER with ATN with a serum creatinine of 7.4. The patient was also found to have a systolic blood pressure of 203 which is consistent with hypertensive emergency which was complicated by hypertensive encephalopathy, metabolic acidosis. Nephrology team consulted in ED. Critical care team consulted. Patient admitted to ICU and initiated on Cardene drip due to increased risk of further worsening symptoms. No further history is obtainable. Patient has diminished cognition but has a positive gag reflex and is able to protect her airway without difficulty. No reports of fever, chills, chest pain, palpitation, productive cough, skin rash, recent ill contacts, trauma, or known exposure to COVID-19. Patient awake at this time. Resting on room air. O2 saturation 98%. No complaint of chest pain, shortness of breath or cough. Patient found to have left leg DVT. Patient started on I/V Heparin. Chest xray done 08/19/20 reported No acute findings. Duplex scan of Lower extremity 08/19/20 reported Evaluation positive for nonocclusive thrombus within the left common femoral vein . No evidence of thrombus within the right lower extremity. Patient is on I/V Heparin, Famotidine and albuterol inhaler. - Patient Problems (1) Acute kidney injury (JENNIFER) with acute tubular necrosis (ATN) Current Visit: Yes Status: Acute Plan to address problem: Management as per nephrology. (2) Altered mental state Current Visit: Yes Status: Acute Qualifiers: Altered mental status type: delirium Qualified Code(s): R41.0 - Disorientation, unspecified Plan to address problem: Improving. Management as per primary care. (3) Hypertensive emergency Current Visit: Yes Status: Acute Plan to address problem: Management as per primary care. (4) Metabolic acidosis Current Visit: Yes Status: Acute Plan to address problem: Anion gap 21. Metabolic acidosis likely from renal failure. (5) Obesity (BMI 30.0-34.9) Current Visit: Yes Status: Acute Plan to address problem: Counselled to loose weight. Diet and exercise. (6) Left leg DVT Current Visit: Yes Status: Acute Plan to address problem: Patient is on I/V Heparin. Subjective Date of service: 08/21/20 Interval history: 65 YO Female with Vascular Dementia, Cerebral Atherosclerosis, HTN, Debility, RLE DVT not taking therapeutic anticoagulation presents to ED for evaluation. Patient has diminished cognition at the time my evaluation is unable to provide history. Patient history provided by the patient who is available via telephone for interview. As per , the patient has experienced increased worsening and confusion over the past 1 week with concomitant acutely worsening of confusion over the past 24 hours. Patient is currently bedbound, nonambulatory, and requires 6/6 assistance with activities of daily living, and is unable to make needs known or follow simple commands. EMS notified and upon arrival the patient was found to be in distress and subsequently transported to [facility] for further care and evaluation of the aforementioned symptoms. Patient found to have JENNIFER with ATN with a serum creatinine of 7.4. The patient was also found to have a systolic blood pressure of 203 which is consistent with hypertensive emergency which was complicated by hypertensive encephalopathy, metabolic acidosis. Nephrology team consulted in ED. Critical care team consulted. Patient admitted to ICU and initiated on Cardene drip due to increased risk of further worsening symptoms. No further history is obtainable. Patient has diminished cognition but has a positive gag reflex and is able to protect her airway without difficulty. No reports of fever, chills, chest pain, palpitation, productive cough, skin rash, recent ill contacts, trauma, or known exposure to COVID-19. Patient awake at this time. Resting on room air. O2 saturation 98%. No complaint of chest pain, shortness of breath or cough. Patient found to have left leg DVT. Patient started on I/V Heparin. Chest xray done 08/19/20 reported No acute findings. Duplex scan of Lower extremity 08/19/20 reported Evaluation positive for nonoc clusive thrombus within the left common femoral vein . No evidence of thrombus within the right lower extremity. Patient is on I/V Heparin, Famotidine and albuterol inhaler. Objective Vital Signs - 12hr 08/21/20 08/21/20 08/21/20 04:31 09:12 09:56 Temperature 98.1 F 98.9 F Pulse Rate 96 H 95 H Respiratory 20 16 Rate Blood Pressure 168/88 Blood Pressure 160/79 [Right] O2 Sat by Pulse 100 100 100 Oximetry Constitutional: no acute distress, alert Eyes: non-icteric ENT: oropharynx moist Neck: supple, no lymphadenopathy Ascultation: Bilateral: diminished breath sounds Cardiovascular: regular rate and rhythm Gastrointestinal: normoactive bowel sounds, soft, non-tender Integumentary: normal Extremities: no cyanosis, edema, other (Left leg swollen.) Neurologic: non-focal exam, pupils equal and round Psychiatric: depressed CBC and BMP: 08/22/20 07:19 08/22/20 07:19 ABG, PT/INR, D-dimer: PT/INR, D-dimer PT 14.9 Sec. (12.2-14.9) 08/20/20 14:40 INR 1.11 (0.87-1.13) 08/20/20 14:40 Abnormal lab findings: Abnormal Labs 08/19/20 08/19/20 08/19/20 16:14 16:14 17:28 WBC RBC 2.79 L Hgb 9.2 L Hct 27.2 L MCV MCH 33 H Lymph % (Auto) 12.6 L [place] % (Auto) 7.8 H [place] # (Auto) Seg Neutrophils % 78.6 H Seg Neutrophils # 8.4 H Heparin Anti-Xa Level Sodium Potassium 5.6 H Chloride Carbon Dioxide 21 L BUN 59 H Creatinine 7.4 H Glucose 110 H POC Glucose Total Creatine Kinase 184 H PTH Intact 103.8 H Urine pH Urine WBC (Auto) Urine Creatinine 08/19/20 08/19/20 08/20/20 18:31 19:46 07:30 WBC 11.1 H RBC 2.80 L Hgb 9.2 L Hct 27.8 L MCV 99 H MCH 33 H Lymph % (Auto) [place] % (Auto) 10.2 H [place] # (Auto) 1.1 H Seg Neutrophils % 70.2 H Seg Neutrophils # 7.8 H Heparin Anti-Xa Level Sodium Potassium 5.4 H Chloride Carbon Dioxide BUN 58 H Creatinine 7.3 H Glucose 103 H POC Glucose Total Creatine Kinase PTH Intact Urine pH 8.0 H Urine WBC (Auto) 7.0 H Urine Creatinine 08/20/20 08/20/20 08/20/20 07:30 14:40 16:15 WBC RBC Hgb 8.9 L Hct 26.7 L MCV MCH Lymph % (Auto) [place] % (Auto) [place] # (Auto) Seg Neutrophils % Seg Neutrophils # Heparin Anti-Xa Level Sodium 149 H Potassium 5.1 H Chloride 109.2 H Carbon Dioxide BUN 57 H Creatinine 6.5 H Glucose POC Glucose Total Creatine Kinase PTH Intact Urine pH Urine WBC (Auto) Urine Creatinine 81.3 H 08/20/20 08/20/20 08/21/20 18:54 23:06 04:08 WBC RBC 2.64 L Hgb 8.9 L Hct 26.0 L MCV 98 H MCH 34 H Lymph % (Auto) [place] % (Auto) [place] # (Auto) Seg Neutrophils % Seg Neutrophils # Heparin Anti-Xa Level 0.76 H Sodium Potassium Chloride Carbon Dioxide BUN Creatinine Glucose POC Glucose Total Creatine Kinase 229 H PTH Intact Urine pH Urine WBC (Auto) Urine Creatinine 08/21/20 08/21/20 08/21/20 04:08 06:18 11:13 WBC RBC Hgb Hct MCV MCH Lymph % (Auto) [place] % (Auto) [place] # (Auto) Seg Neutrophils % Seg Neutrophils # Heparin Anti-Xa Level 0.75 H Sodium 148 H Potassium Chloride 108.3 H Carbon Dioxide BUN 57 H Creatinine 5.4 H Glucose POC Glucose 118 H Total Creatine Kinase PTH Intact Urine pH Urine WBC (Auto) Urine Creatinine
[2020-08-21] MEDS: HEPARIN 10,000 UNITS/10 ML VIAL IV PRN (12:28)
[2020-08-21] MEDS: HEPARIN/ 0.45% NACL DRIP 25,000 UNIT/500 ML BAG IV SCH (12:29)
--- NOTE | 2020-08-21 14:18 | Progress Note ---
Assessment and Plan Assessment and plan: This is a 65-year-old female with vascular dementia, cerebral sclerosis, nonambulatory/bedbound, hypertension, debility, right lower leg DVT admitted with JENNIFER, hypertensive emergency, hypertensive encephalopathy, metabolic acidosis, hyperkalemia Hypertensive emergency Hypertensive encephalopathy Acute kidney injury Left lower leg nonocclusive DVT Leukocytosis Acute dysphagia Hypernatremia Hyperchloremia Cerebral atherosclerosis Vascular dementia Metabolic acidosis History of right lower leg DVT -CCM, nephrology, urology and vascular surgery consulted, appreciated recommendations -COVID 19 PCR pending -s/p cardene gtt -Continue amlodipine, ST saw patient, passed swallow study, start renal diet -Assessment for HD per Nephrology -Strict I&O -Daily weights -Avoid nephrotoxic medications -Renally dose medications -Heparin gtt -MIVF per nephro -08/19 CT head limited by motion and positioning however there is mild microvascular angiopathic without clear CT evidence of acute intracranial hemorr margie -08/09 CT abdomen/pelvis shows moderate right hydronephrosis and dilation of the proximal to mid right ureter, moderate left hydroureteronephrosis with no obvious obstructing stone or lesion, mildly prominent left groin, asymmetric soft tissue swelling involving the visualized left anterior thigh and left flank, mild deep prominent left groin lymph nodes which are nonspecific and likely reactive -08/19 renal ultrasound shows moderate bilateral hydronephrosis -08/19 bilateral lower extremity ultrasound shows positive nonocclusive thrombus in the left common femoral vein without evidence of thrombus within the right lower extremity -08/20 Cystogram pending today, urology following -Trend CBC, BMP DVT/GI prophylaxis: Heparin drip Dispo: Continue treatment for JENNIFER, continues to improve with fluids. Patient will need p.o. anticoagulation at the time of discharge. History Interval history: This is a 65-year-old female with vascular dementia, cerebral arthrosclerosis, nonambulatory/bedbound, hypertension, debility, right lower leg DVT (not on ther apeutic anticoagulation) presented to the emergency department on 08/19 with complaints of increased worsening of confusion of the past week which increased over the past 24 hours per her via EMS. Work-up in the emergency department revealed JENNIFER with ATN, systolic blood pressure of 203 consistent with hypertensive emergency complicated by hypertensive encephalopathy and metabolic acidosis. Consults placed to nephrology and [facility]. Patient was started on a Cardene drip and transferred to ICU. Patient admitted to the hospital service with hypertensive emergency, acute kidney injury, hypertensive encephalopathy and hyperkalemia. 08/20: Patient noted to have a left lower leg DVT and started on heparin drip. Patient is confused therefore nurse was asked to place a Dobbhoff tube. Speech evaluation ordered as bedside swallow evaluation could not be completed due to AMS. Patient has been titrated off Cardene drip and has been started on p.o. antihypertensive. Patient has been downgraded from ICU to telemetry. Of note patient received 4 to 5 mg of Ativan overnight in the emergency room. This morning patient has hyperchloremia, hypernatremia, hyperchloremia and her kidney function tests slightly improved. Patient received Kayexalate. Urology was consulted today. We will give the patient 1 LR bolus and prn labetalol has been ordered 08/21: Patient seen and examined this morning, much more awake, passed swallowing bedside test, spoke with the and the patient, patient knows that she is in the hospital she has been here for the last 2 days. Patient states that she is not in any pain. Patient does not remember much. Hospitalist Physical - Physical exam Narrative exam: General appearance: no acute distress, well-nourished EENT: PERRL, EOM intact, hearing intact, clear oral mucosa Neck: Present: supple, normal ROM Respiratory: bilateral CTA, negative: rales, rhonchi, wheezing Cardiovascular: Regular rate/rhythm, Normal S1 & S2. No gallop, rub Extremities: Swelling in left lower extremity compared to right, no ischemia, normal temperature, normal color, Full ROM Abdominal: soft, no tenderness, non-distended, normal bowel sounds Integumentary: Present: clear, warm, dry no wounds, no erythema noted Psychiatric: appropriate mood/affect, intact judgment & insight, minimal confusion Neurologic: CNII-XII intact, moves all extremities, no sensory or motor abnormalities - Constitutional Vitals: Temp Pulse Resp BP Pulse Ox 98.9 F 95 H 16 160/79 100 08/21/20 09:56 08/21/20 09:56 08/21/20 09:56 08/21/20 09:56 08/21/20 09:56 HEART Score - HEART Score Troponin: Troponin T < 0.010 ng/mL (0.00-0.029) 08/19/20 16:14 Results - Labs CBC & Chem 7: 08/21/20 04:08 08/21/20 04:08 Labs: Laboratory Last Values WBC 10.2 K/mm3 (4.5-11.0) 08/21/20 04:08 RBC 2.64 M/mm3 (3.65-5.03) L 08/21/20 04:08 Hgb 8.9 gm/dl (10.1-14.3) L 08/21/20 04:08 Hct 26.0 % (30.3-42.9) L 08/21/20 04:08 MCV 98 fl (79-97) H 08/21/20 04:08 MCH 34 pg (28-32) H 08/21/20 04:08 MCHC 34 % (30-34) 08/21/20 04:08 RDW 14.5 % (13.2-15.2) 08/21/20 04:08 Plt Count 249 K/mm3 (140-440) 08/21/20 04:08 Lymph % (Auto) 18.9 % (13.4-35.0) 08/20/20 07:30 [place] % (Auto) 10.2 % (0.0-7.3) H 08/20/20 07:30 Eos % (Auto) 0.1 % (0.0-4.3) 08/20/20 07:30 Baso % (Auto) 0.6 % (0.0-1.8) 08/20/20 07:30 Lymph # (Auto) 2.1 K/mm3 (1.2-5.4) 08/20/20 07:30 [place] # (Auto) 1.1 K/mm3 (0.0-0.8) H 08/20/20 07:30 Eos # (Auto) 0.0 K/mm3 (0.0-0.4) 08/20/20 07:30 Baso # (Auto) 0.1 K/mm3 (0.0-0.1) 08/20/20 07:30 Seg Neutrophils % 70.2 % (40.0-70.0) H 08/20/20 07:30 Seg Neutrophils # 7.8 K/mm3 (1.8-7.7) H 08/20/20 07:30 PT 14.9 Sec. (12.2-14.9) 08/20/20 14:40 INR 1.11 (0.87-1.13) 08/20/20 14:40 APTT 28.7 Sec. (24.2-36.6) 08/20/20 14:40 Thrombin Time 16.9 Sec. (15.1-19.6) 08/19/20 16:14 Heparin Anti-Xa Level 0.75 U.I./ml (0.3-0.7) H 08/21/20 06:18 Sodium 148 mmol/L (137-145) H 08/21/20 04:08 Potassium 4.5 mmol/L (3.6-5.0) 08/21/20 04:08 Chloride 108.3 mmol/L (98-107) H 08/21/20 04:08 Carbon Dioxide 23 mmol/L (22-30) 08/21/20 04:08 Anion Gap 21 mmol/L 08/21/20 04:08 BUN 57 mg/dL (7-17) H 08/21/20 04:08 Creatinine 5.4 mg/dL (0.6-1.2) H 08/21/20 04:08 Estimated GFR 10 ml/min 08/21/20 04:08 BUN/Creatinine Ratio 11 % 08/21/20 04:08 Glucose 82 mg/dL (65-100) 08/21/20 04:08 POC Glucose 118 mg/dL (70-105) H 08/21/20 11:13 Calcium 9.3 mg/dL (8.4-10.2) 08/21/20 04:08 Total Bilirubin 0.30 mg/dL (0.1-1.2) 08/19/20 16:14 AST 11 units/L (5-40) 08/19/20 16:14 ALT 9 units/L (7-56) 08/19/20 16:14 Alkaline Phosphatase 78 units/L (35-129) 08/19/20 16:14 Ammonia 40.0 umol/L (25-60) 08/19/20 19:46 Total Creatine Kinase 229 units/L (30-135) H 08/20/20 18:54 CK-MB (CK-2) 1.9 ng/mL (0.0-4.0) 08/19/20 16:14 CK-MB (CK-2) Rel Index 1.0 (0-4) 08/19/20 16:14 Troponin T < 0.010 ng/mL (0.00-0.029) 08/19/20 16:14 Total Protein 7.6 g/dL (6.3-8.2) 08/19/20 16:14 Albumin 4.3 g/dL (3.9-5) 08/19/20 16:14 Albumin/Globulin Ratio 1.3 % 08/19/20 16:14 PTH Intact 103.8 pg/mL (15-65) H 08/19/20 17:28 Urine Color Straw (Yellow) 08/19/20 18:31 Urine Turbidity Clear (Clear) 08/19/20 18:31 Urine pH 8.0 (5.0-7.0) H 08/19/20 18:31 Ur Specific [place] 1.011 (1.003-1.030) 08/19/20 18:31 Urine Protein 100 mg/dl mg/dL (Negative) 08/19/20 18:31 Urine Glucose (UA) Neg mg/dL (Negative) 08/19/20 18:31 Urine Ketones Tr mg/dL (Negative) 08/19/20 18:31 Urine Blood Sm (Negative) 08/19/20 18:31 Urine Nitrite Neg (Negative) 08/19/20 18:31 Urine Bilirubin Neg (Negative) 08/19/20 18:31 Urine Urobilinogen < 2.0 mg/dL (<2.0) 08/19/20 18:31 Ur Leukocyte Esterase Tr (Negative) 08/19/20 18:31 Urine WBC (Auto) 7.0 /HPF (0.0-6.0) H 08/19/20 18:31 Urine RBC (Auto) 4.0 /HPF (0.0-6.0) 08/19/20 18:31 U Epithel Cells (Auto) 3.0 /HPF (0-13.0) 08/19/20 18:31 Urine Creatinine 81.3 mg/dL (0.1-20.0) H 08/20/20 16:15 Urine Sodium 93 mmol/L 08/20/20 16:15 Urine Opiates Screen Negative 08/19/20 18:31 Urine Methadone Screen Negative 08/19/20 18:31 Ur Barbiturates Screen Negative 08/19/20 18:31 Ur Phencyclidine Scrn Negative 08/19/20 18:31 Ur Amphetamines Screen Negative 08/19/20 18:31 U Benzodiazepines Scrn Negative 08/19/20 18:31 Urine Cocaine Screen Negative 08/19/20 18:31 U Marijuana (THC) Screen Negative 08/19/20 18:31 Drugs of Abuse Note Disclamer 08/19/20 18:31 Plasma/Serum Alcohol < 0.01 % (0-0.07) 08/19/20 16:14 Hepatitis A IgM Ab Non-reactive (NonReactive) 08/19/20 17:28 Hep Bs Antigen Non-reactive (Negative) 08/19/20 17:28 Hep B Core IgM Ab Non-reactive (NonReactive) 08/19/20 17:28 Hepatitis C Antibody Non-reactive (NonReactive) 08/19/20 17:28 HIV 1&2 Antibody Rapid Non react (Non React) 08/19/20 17:28 HIV P24 Antigen Non react (Non React) 08/19/20 17:28 Microbiology: Microbiology 08/19/20 18:31 Urine,Catheterized - Indwelling Catheter Urine Culture - Preliminary NO GROWTH AFTER 24 HOURS Bowman/IV: Voiding Method Indwelling Catheter Active Medications - Current Medications Current Medications: Generic Name Dose Route Start Last Admin Trade Name Freq PRN Reason Stop Dose Admin Acetaminophen 650 mg 08/20/20 14:00 Acetaminophen 325 Mg Tab PO Q4H PRN Pain MILD(1-3)/Fever >100.5/[place] Albuterol 2.5 mg 08/19/20 19:45 Albuterol 2.5 Mg/3 Ml Nebu IH Q3HRT PRN Shortness Of Breath Amlodipine Besylate 5 mg 08/20/20 10:00 08/21/20 12:26 Amlodipine 5 Mg Tab PO 5 mg QDAY RADHA Administration Dextrose 50 ml 08/20/20 12:15 Dextrose 50% In Water (25gm) 50 Ml Syringe IV Q30MIN PRN Hypoglycemia Protocol Famotidine 10 mg 08/20/20 22:00 08/21/20 12:26 Famotidine 20 Mg/2 Ml Inj IV 10 mg BID RADHA Administration Heparin Sodium (Porcine) 3,900 unit 08/20/20 11:30 Heparin 10,000 Units/10 Ml Vial 40 unit/kg (3900 unit) IV Q6H PRN Anti-Xa Assay < 0.1 units/ml Hydralazine HCl 10 mg 08/20/20 17:00 08/20/20 19:15 Hydralazine 20 Mg/1 Ml Inj IV 10 mg Q4H PRN Administration Hypertension Heparin Sodium/Sodium Chloride 25,000 unit in 500 mls @ 29 mls/hr 08/20/20 11:30 08/21/20 12:29 Heparin/ 0.45% Nacl-25,000 Unit/500 Ml IV 1,250 units/hr TITR RADHA 25 mls/hr Administration Protocol 1,450 UNITS/HR Dextrose/Sodium Chloride 1,000 mls @ 125 mls/hr 08/20/20 17:00 08/21/20 12:26 D5/0.45ns IV 125 mls/hr DIRECT RADHA Administration Labetalol HCl 10 mg 08/20/20 13:00 Labetalol 20 Mg/4 Ml Inj IV Q6HR PRN Hypertension Ondansetron HCl 4 mg 08/20/20 13:00 Ondansetron 4 Mg/2 Ml Inj IV Q8H PRN Nausea And Vomiting Sodium Chloride 10 ml 08/19/20 22:00 08/21/20 12:26 Sodium Chloride 0.9% 10 Ml Flush Syringe IV 10 ml BID RADHA Administration Sodium Chloride 10 ml 08/19/20 19:45 Sodium Chloride 0.9% 10 Ml Flush Syringe IV PRN PRN LINE FLUSH Tramadol HCl 50 mg 08/19/20 20:03 08/20/20 21:04 Tramadol 50 Mg Tab PO 50 mg Q6H PRN Administration Pain, Moderate (4-6) Nutrition/Malnutrition Assess - Dietary Evaluation Nutrition/Malnutrition Findings: Nutrition Notes Start: 08/21/20 07:38 Freq: Status: Active Protocol: Document 08/21/20 07:38 ALBERT (Rec: 08/21/20 07:45 ALBERT [email or web address]) Nutrition Notes Need for Assessment generated from: MD Order Initial or Follow up Assessment Current Diagnosis Acute Kidney Injury, Hypertension Other Pertinent Diagnosis debility, dementia, encephalopathy Current Diet NPO Labs/Tests Na 148 BUN 57 Cr 5.4 Pertinent Medications D5 1/2 NS at 125 ml/hr (08/20) Kionex Height 5 ft 7 in Weight 97.3 kg [place] Body Weight (kg) 61.36 BMI 33.5 Weight Status Obese Subjective/Other Information MD order for TF if pt fails speech eval. LARD REFINER recommedends regular diet. Will follow for intakes. Burn Absent Trauma Absent Current % PO Negligible Minimum of two criteria No physical signs of malnutrition #1 Nutrition Diagnosis No nutrition diagnosis at this time Is patient on ventilator? No Is Patient Ambulatory and/or Out of Bed No REE-([facility]-confined to bed) 1877.628 Kcal/Kg value to use for calculation 15 Approximate Energy Requirements Using 1460 kcal/Kg Calculation Used for Recommendations Kcal/kg Additional Notes Protein: (0.8-1.2g/kg AdjBW: 79kg) 63-95g Fluid: 1 ml/kcal Nutrition Intervention Change Diet Order: Advance as able Goal #1 Diet advancement Follow-Up By: 08/23/20 Additional Comments FU for diet advancement and intakes
[2020-08-21] MEDS: ONDANSETRON 4 MG/2 ML INJ IV PRN (15:37)
--- NOTE | 2020-08-21 15:43 | Progress Note ---
Assessment and Plan Assessment Acute kidney injury, unknown baseline Bilateral hydronephrosis Hyperkalemia Hypernatremia Acute encephalopathy Vascular dementia Recommendations Creatinine improving following Bowman placement, continue Bowman Urology consulted, recommendations reviewed No indication for dialysis at this time Monitor labs and urine output daily Continue hypotonic fluids IV Renally dose medications Avoid nephrotoxins Renal diet Subjective Date of service: 08/21/20 Principal diagnosis: JENNIFER Interval history: Transferred to floor. Mentation improved. Objective - Exam Narrative Exam: General: No acute distress Neck: Supple, no JVD Chest: Clear to auscultation bilaterally Heart: RRR, S1 and S2, no pericardial rub Abdomen: Soft, nontender, no renal bruit Extremity: No peripheral cyanosis, edema Neurological: Awake and alert. No astreixis Dermatology: No skin rash Psych: Calm, cooperative Musculoskeletal: No joint effusion - Vital Signs Vital signs: Vital Signs - 12hr 08/21/20 08/21/20 08/21/20 04:31 09:12 09:56 Temperature 98.1 F 98.9 F Pulse Rate 96 H 95 H Respiratory 20 16 Rate Blood Pressure 168/88 Blood Pressure 160/79 [Right] O2 Sat by Pulse 100 100 100 Oximetry - Lab 08/21/20 04:08 08/21/20 04:08 Most recent lab results Calcium 9.3 mg/dL (8.4-10.2) 08/21/20 04:08 Urine Creatinine 81.3 mg/dL (0.1-20.0) H 08/20/20 16:15 Urine Sodium 93 mmol/L 08/20/20 16:15 Medications & Allergies - Medications Allergies/Adverse Reactions: Allergies No Known Allergies Allergy (Verified 08/19/20 15:50) Home Medications: Home Medications Medication Instructions Recorded Confirmed Last Taken Type EPINEPHrine (NF) [Epipen (Nf)] 0.3 mg IM PRN #1 syringekit 04/27/14 Unknown Rx Prednisone [Prednisone 10 mg 10 mg PO .TAPER #1 tab.ds.pk 04/27/14 Unknown Rx (6-Day Pack, 21 Tabs)] Azithromycin [Zithromax Z-JANES] 1 dose PO DAILY 5 Days tab 07/09/15 Unknown Rx Ibuprofen [Motrin] 800 mg PO Q8HR PRN #30 tablet 07/09/15 Unknown Rx traMADoL [Ultram 50 MG tab] 50 mg PO Q6HR PRN #20 tablet 07/09/15 Unknown Rx Active Medications: Generic Name Dose Route Start Last Admin Trade Name Freq PRN Reason Stop Dose Admin Acetaminophen 650 mg 08/20/20 14:00 Acetaminophen 325 Mg Tab PO Q4H PRN Pain MILD(1-3)/Fever >100.5/[place] Albuterol 2.5 mg 08/19/20 19:45 Albuterol 2.5 Mg/3 Ml Nebu IH Q3HRT PRN Shortness Of Breath Amlodipine Besylate 5 mg 08/20/20 10:00 08/21/20 12:26 Amlodipine 5 Mg Tab PO 5 mg QDAY RADHA Administration Dextrose 50 ml 08/20/20 12:15 Dextrose 50% In Water (25gm) 50 Ml Syringe IV Q30MIN PRN Hypoglycemia Protocol Famotidine 10 mg 08/20/20 22:00 08/21/20 12:26 Famotidine 20 Mg/2 Ml Inj IV 10 mg BID RADHA Administration Heparin Sodium (Porcine) 3,900 unit 08/20/20 11:30 Heparin 10,000 Units/10 Ml Vial 40 unit/kg (3900 unit) IV Q6H PRN Anti-Xa Assay < 0.1 units/ml Hydralazine HCl 10 mg 08/20/20 17:00 08/20/20 19:15 Hydralazine 20 Mg/1 Ml Inj IV 10 mg Q4H PRN Administration Hypertension Heparin Sodium/Sodium Chloride 25,000 unit in 500 mls @ 29 mls/hr 08/20/20 11:30 08/21/20 12:29 Heparin/ 0.45% Nacl-25,000 Unit/500 Ml IV 1,250 units/hr TITR RADHA 25 mls/hr Administration Protocol 1,450 UNITS/HR Dextrose/Sodium Chloride 1,000 mls @ 125 mls/hr 08/20/20 17:00 08/21/20 12:26 D5/0.45ns IV 125 mls/hr DIRECT RADHA Administration Labetalol HCl 10 mg 08/20/20 13:00 Labetalol 20 Mg/4 Ml Inj IV Q6HR PRN Hypertension Ondansetron HCl 4 mg 08/20/20 13:00 08/21/20 15:37 Ondansetron 4 Mg/2 Ml Inj IV 4 mg Q8H PRN Administration Nausea And Vomiting Sodium Chloride 10 ml 08/19/20 22:00 08/21/20 12:26 Sodium Chloride 0.9% 10 Ml Flush Syringe IV 10 ml BID RADHA Administration Sodium Chloride 10 ml 08/19/20 19:45 Sodium Chloride 0.9% 10 Ml Flush Syringe IV PRN PRN LINE FLUSH Tramadol HCl 50 mg 08/19/20 20:03 08/20/20 21:04 Tramadol 50 Mg Tab PO 50 mg Q6H PRN Administration Pain, Moderate (4-6)
--- NOTE | 2020-08-21 16:13 | Fluoroscopy Report ---
INTRAOPERATIVE FLUOROSCOPY: PELVIS INDICATION: Bilateral hydronephrosis. TECHNIQUE: Intraoperative spot images were obtained during the procedure. FINDINGS: Contrast was injected through a previously placed Bowman catheter with expected opacification of the b ladder without visualization of a leak, ureteral reflux or other significant abnormalities. Multiple surgical clips are seen along the pelvis. Fluoroscopy Time: 2.3 minutes. Fluoroscopy Images: 8. Signer Name: Ha Thomas MD Signed: 08/21/2020 4:08 PM Workstation Name: [email or web address]
--- NOTE | 2020-08-21 17:07 | Event Note ---
Date: 08/21/20 cystogram-- no extra or reflux creatinine improving may have small stones or ureteral stricture spoke with ---Marcelo Eng via phone needs cysto, possbile stents plan for if cleared medically
[2020-08-21] MEDS: ACETAMINOPHEN 325 MG TAB PO PRN ×2 (18:10→21:46)
[2020-08-21] MEDS: hydrALAZINE 20 MG/1 ML INJ IV PRN (18:32)
[2020-08-22] MEDS: D5W/0.45% NACL 1,000 ML IV SCH ×3 (06:40→23:29)
[2020-08-22] MEDS: ACETAMINOPHEN 325 MG TAB PO PRN (07:39)
[2020-08-22 07:51] LABS: Hematocrit 25.3 % (30.3-42.9); Hemoglobin 8.3 gm/dl (10.1-14.3)
[2020-08-22 08:48] LABS: Calcium 8.7 mg/dL (8.4-10.2)
--- NOTE | 2020-08-22 09:20 | Progress Note ---
Subjective Date of service: 08/22/20 Principal diagnosis: JENNIFER Interval history: 65 YO Female with Vascular Dementia, Cerebral Atherosclerosis, HTN, RLE DVT not taking therapeutic anticoagulation presents to ED for evaluation. Patient has diminished cognition at the time my evaluation is unable to provide history. chart review--- As per , the patient has experienced increased worsening and confusion over the past 1 week with concomitant acutely worsening of confusion over the past 24 hours (hx per chart review--- unable to obtain from pt) nurse at bedside--hall placed abd scar---c section per pt cystogram-- no extra or reflux abd soft 14F coude draining saadia urine CTAP-- bilat hydro, hall balloon in bladder a/p hydronephrosis renal insuff----Cr 7---now 4--trending down may need urodynamics as outpt may have small stones or ureteral stricture spoke with ---Marcelo Eng via phone needs cysto, possbile stents plan for if cleared medically Objective - Constitutional Vitals: Vital Signs - 12hr 08/21/20 08/21/20 08/22/20 21:29 22:00 05:06 Temperature 99.5 F 99.1 F Pulse Rate 89 88 Respiratory 20 20 Rate Blood Pressure 130/66 168/67 O2 Sat by Pulse 100 100 100 Oximetry - Labs CBC & Chem 7: 08/22/20 07:19 08/22/20 07:19 Labs: Abnormal lab results 08/21/20 08/21/20 08/22/20 Range/Units 11:13 21:51 07:19 Hgb 8.3 L (10.1-14.3) gm/dl Hct 25.3 L (30.3-42.9) % Chloride (98-107) mmol/L BUN (7-17) mg/dL Creatinine (0.6-1.2) mg/dL Glucose (65-100) mg/dL POC Glucose 118 H 125 H (70-105) mg/dL 08/22/20 08/22/20 Range/Units 07:19 07:52 Hgb (10.1-14.3) gm/dl Hct (30.3-42.9) % Chloride 107.3 H (98-107) mmol/L BUN 40 H (7-17) mg/dL Creatinine 4.3 H (0.6-1.2) mg/dL Glucose 102 H (65-100) mg/dL POC Glucose 108 H (70-105) mg/dL Medications & Allergies - Medications Allergies/Adverse Reactions: Allergies No Known Allergies Allergy (Verified 08/19/20 15:50) Home Medications: Home Medications Medication Instructions Recorded Confirmed Last Taken Type EPINEPHrine (NF) [Epipen (Nf)] 0.3 mg IM PRN #1 syringekit 04/27/14 Unknown Rx Prednisone [Prednisone 10 mg 10 mg PO .TAPER #1 tab.ds.pk 04/27/14 Unknown Rx (6-Day Pack, 21 Tabs)] Azithromycin [Zithromax Z-JANES] 1 dose PO DAILY 5 Days tab 07/09/15 Unknown Rx Ibuprofen [Motrin] 800 mg PO Q8HR PRN #30 tablet 07/09/15 Unknown Rx traMADoL [Ultram 50 MG tab] 50 mg PO Q6HR PRN #20 tablet 07/09/15 Unknown Rx Active Medications: Generic Name Dose Route Start Last Admin Trade Name Freq PRN Reason Stop Dose Admin Acetaminophen 650 mg 08/20/20 14:00 08/22/20 07:39 Acetaminophen 325 Mg Tab PO 650 mg Q4H PRN Administration Pain MILD(1-3)/Fever >100.5/[place] Albuterol 2.5 mg 08/19/20 19:45 Albuterol 2.5 Mg/3 Ml Nebu IH Q3HRT PRN Shortness Of Breath Amlodipine Besylate 10 mg 08/22/20 10:00 Amlodipine 10 Mg Tab PO QDAY RADHA Dextrose 50 ml 08/20/20 12:15 Dextrose 50% In Water (25gm) 50 Ml Syringe IV Q30MIN PRN Hypoglycemia Protocol Famotidine 10 mg 08/20/20 22:00 08/21/20 21:46 Famotidine 20 Mg/2 Ml Inj IV 10 mg BID RADHA Administration Heparin Sodium (Porcine) 3,900 unit 08/20/20 11:30 Heparin 10,000 Units/10 Ml Vial 40 unit/kg (3900 unit) IV Q6H PRN Anti-Xa Assay < 0.1 units/ml Hydralazine HCl 10 mg 08/20/20 17:00 08/21/20 18:32 Hydralazine 20 Mg/1 Ml Inj IV 10 mg Q4H PRN Administration Hypertension Heparin Sodium/Sodium Chloride 25,000 unit in 500 mls @ 29 mls/hr 08/20/20 11:30 08/22/20 08:15 Heparin/ 0.45% Nacl-25,000 Unit/500 Ml IV 1,250 units/hr TITR ARDHA 25 mls/hr Titration Protocol 1,450 UNITS/HR Dextrose/Sodium Chloride 1,000 mls @ 125 mls/hr 08/20/20 17:00 08/22/20 06:40 D5/0.45ns IV 125 mls/hr DIRECT RADHA Administration Labetalol HCl 10 mg 08/20/20 13:00 Labetalol 20 Mg/4 Ml Inj IV Q6HR PRN Hypertension Ondansetron HCl 4 mg 08/20/20 13:00 08/21/20 15:37 Ondansetron 4 Mg/2 Ml Inj IV 4 mg Q8H PRN Administration Nausea And Vomiting Sodium Chloride 10 ml 08/19/20 22:00 08/21/20 21:54 Sodium Chloride 0.9% 10 Ml Flush Syringe IV 10 ml BID RADHA Administration Sodium Chloride 10 ml 08/19/20 19:45 Sodium Chloride 0.9% 10 Ml Flush Syringe IV PRN PRN LINE FLUSH Tramadol HCl 50 mg 08/19/20 20:03 08/20/20 21:04 Tramadol 50 Mg Tab PO 50 mg Q6H PRN Administration Pain, Moderate (4-6) HEART Score - HEART Score Troponin: Troponin T < 0.010 ng/mL (0.00-0.029) 08/19/20 16:14
[2020-08-22] MEDS: FAMOTIDINE 20 MG/2 ML INJ IV SCH ×2 (09:45→21:10)
[2020-08-22] MEDS: amLODIPine 10 MG TAB PO SCH (09:46)
[2020-08-22] MEDS: HEPARIN/ 0.45% NACL DRIP 25,000 UNIT/500 ML BAG IV SCH (09:50)
[2020-08-22] MEDS: traMADol 50 MG TAB PO PRN (09:52)
--- NOTE | 2020-08-22 10:08 | Progress Note ---
Assessment and Plan Assessment and plan: This is a 65-year-old female with vascular dementia, cerebral sclerosis, nonambulatory/bedbound, hypertension, debility, right lower leg DVT admitted with JENNIFER, hypertensive emergency, hypertensive encephalopathy, metabolic acidosis, hyperkalemia Hypertensive emergency Hypertensive encephalopathy Acute kidney injury Left lower leg nonocclusive DVT Leukocytosis Acute dysphagia Hypernatremia Hyperchloremia Cerebral atherosclerosis Vascular dementia Metabolic acidosis History of right lower leg DVT -[facility], nephrology, urology and vascular surgery consulted, appreciated recommendations -COVID 19 PCR pending -s/p cardene gtt -Continue amlodipine, ST saw patient, passed swallow study, renal diet -Assessment for HD per Nephrology. -Strict I&O -Daily weights -Avoid nephrotoxic medications. -Renally dose medications. -Heparin gtt. Patient's left leg swelling has been going on for about 3 to 4 months, states that she was to have a procedure this week to try to rid the area of some scar tissue that is causing her leg swelling. Spoke with the , not sure if patient was on any blood thinners. We will have physical therapy evaluate the patient, will speak with vascular surgery pertaining to patient's left leg. We will attempt to get records from [facility]. -MIVF per nephro -08/19 CT head limited by motion and positioning however there is mild lolly rovascular angiopathic without clear CT evidence of acute intracranial hemorrhage -08/09 CT abdomen/pelvis shows moderate right hydronephrosis and dilation of the proximal to mid right ureter, moderate left hydroureteronephrosis with no obvious obstructing stone or lesion, mildly prominent left groin, asymmetric soft tissue swelling involving the visualized left anterior thigh and left flank, mild deep prominent left groin lymph nodes which are nonspecific and likely reactive -08/19 renal ultrasound shows moderate bilateral hydronephrosis -08/19 bilateral lower extremity ultrasound shows positive nonocclusive thrombus in the left common femoral vein without evidence of thrombus within the right lower extremity -08/20 Cystogram completed, urology following. Cystogram completed, patient will need cystoscopy and possible stent placement -Trend CBC, BMP DVT/GI prophylaxis: Heparin drip Dispo: Continue treatment for urinary retention, JENNIFER, lower extremity nonocclusive thrombus. From a medical standpoint, patient is low risk for cardio pulmonary event during cystoscopy, urology can proceed. History Interval history: This is a 65-year-old female with vascular dementia, cerebral arthrosclerosis, nonambulatory/bedbound, hypertension, debility, right lower leg DVT (not on therapeutic anticoagulation) presented to the emergency department on 08/19 with complaints of increased worsening of confusion of the past week which increased over the past 24 hours per her via EMS. Work-up in the emergency department revealed JENNIFER with ATN, systolic blood pressure of 203 consistent with hypertensive emergency complicated by hypertensive encephalopathy and metabolic acidosis. Consults placed to nephrology and [facility]. Patient was started on a Cardene drip and transferred to ICU. Patient admitted to the hospital service with hypertensive emergency, acute kidney injury, hypertensive encephalopathy and hyperkalemia. 08/20: Patient noted to have a left lower leg DVT and started on heparin drip. Patient is confused therefore nurse was asked to place a Dobbhoff tube. Speech evaluation ordered as bedside swallow evaluation could not be completed due to AMS. Patient has been titrated off Cardene drip and has been started on p.o. antihypertensive. Patient has been downgraded from ICU to telemetry. Of note patient received 4 to 5 mg of Ativan overnight in the emergency room. This morning patient has hyperchloremia, hypernatremia, hyperchloremia and her kidney function tests slightly improved. Patient received Kayexalate. Urology was co nsulted today. We will give the patient 1 LR bolus and prn labetalol has been ordered 08/21: Patient seen and examined this morning, much more awake, passed swallowing bedside test, spoke with the and the patient, patient knows that she is in the hospital she has been here for the last 2 days. Patient states that she is not in any pain. Patient does not remember much. 08/22: Patient seen and examined, no confusion. States that she has left lower extremity pain. Hospitalist Physical - Physical exam Narrative exam: General appearance: no acute distress, well-nourished EENT: PERRL, EOM intact, hearing intact, clear oral mucosa Neck: Present: supple, normal ROM Respiratory: bilateral CTA, negative: rales, rhonchi, wheezing Cardiovascular: Regular rate/rhythm, Normal S1 & S2. No gallop, rub Extremities: Left lower extremity with pain in thigh, swelling, no ischemia, normal temperature, normal color Abdominal: soft, no tenderness, non-distended, normal bowel sounds Integumentary: Present: clear, warm, dry no wounds, no erythema noted Psychiatric: appropriate mood/affect, intact judgment & insight, minimal con fusion Neurologic: CNII-XII intact, moves all extremities, no sensory or motor abnormalities - Constitutional Vitals: Temp Pulse Resp BP Pulse Ox 99.1 F 77 20 152/64 100 08/22/20 05:06 08/22/20 09:46 08/22/20 05:06 08/22/20 09:46 08/22/20 09:32 General appearance: Present: no acute distress, obese HEART Score - HEART Score Troponin: Troponin T < 0.010 ng/mL (0.00-0.029) 08/19/20 16:14 Results - Labs CBC & Chem 7: 08/22/20 07:19 08/22/20 07:19 Labs: Laboratory Last Values WBC 10.2 K/mm3 (4.5-11.0) 08/21/20 04:08 RBC 2.64 M/mm3 (3.65-5.03) L 08/21/20 04:08 Hgb 8.3 gm/dl (10.1-14.3) L 08/22/20 07:19 Hct 25.3 % (30.3-42.9) L 08/22/20 07:19 MCV 98 fl (79-97) H 08/21/20 04:08 MCH 34 pg (28-32) H 08/21/20 04:08 MCHC 34 % (30-34) 08/21/20 04:08 RDW 14.5 % (13.2-15.2) 08/21/20 04:08 Plt Count 234 K/mm3 (140-440) 08/22/20 07:19 Lymph % (Auto) 18.9 % (13.4-35.0) 08/20/20 07:30 [place] % (Auto) 10.2 % (0.0-7.3) H 08/20/20 07:30 Eos % (Auto) 0.1 % (0.0-4.3) 08/20/20 07:30 Baso % (Auto) 0.6 % (0.0-1.8) 08/20/20 07:30 Lymph # (Auto) 2.1 K/mm3 (1.2-5.4) 08/20/20 07:30 [place] # (Auto) 1.1 K/mm3 (0.0-0.8) H 08/20/20 07:30 Eos # (Auto) 0.0 K/mm3 (0.0-0.4) 08/20/20 07:30 Baso # (Auto) 0.1 K/mm3 (0.0-0.1) 08/20/20 07:30 Seg Neutrophils % 70.2 % (40.0-70.0) H 08/20/20 07:30 Seg Neutrophils # 7.8 K/mm3 (1.8-7.7) H 08/20/20 07:30 PT 14.9 Sec. (12.2-14.9) 08/20/20 14:40 INR 1.11 (0.87-1.13) 08/20/20 14:40 APTT 28.7 Sec. (24.2-36.6) 08/20/20 14:40 Thrombin Time 16.9 Sec. (15.1-19.6) 08/19/20 16:14 Heparin Anti-Xa Level 0.51 U.I./ml (0.3-0.7) 08/22/20 07:19 Sodium 143 mmol/L (137-145) 08/22/20 07:19 Potassium 4.3 mmol/L (3.6-5.0) 08/22/20 07:19 Chloride 107.3 mmol/L (98-107) H 08/22/20 07:19 Carbon Dioxide 26 mmol/L (22-30) 08/22/20 07:19 Anion Gap 14 mmol/L 08/22/20 07:19 BUN 40 mg/dL (7-17) H 08/22/20 07:19 Creatinine 4.3 mg/dL (0.6-1.2) H 08/22/20 07:19 Estimated GFR 13 ml/min 08/22/20 07:19 BUN/Creatinine Ratio 9 % 08/22/20 07:19 Glucose 102 mg/dL (65-100) H 08/22/20 07:19 POC Glucose 108 mg/dL (70-105) H 08/22/20 07:52 Calcium 8.7 mg/dL (8.4-10.2) 08/22/20 07:19 Total Bilirubin 0.30 mg/dL (0.1-1.2) 08/19/20 16:14 AST 11 units/L (5-40) 08/19/20 16:14 ALT 9 units/L (7-56) 08/19/20 16:14 Alkaline Phosphatase 78 units/L (35-129) 08/19/20 16:14 Ammonia 40.0 umol/L (25-60) 08/19/20 19:46 Total Creatine Kinase 229 units/L (30-135) H 08/20/20 18:54 CK-MB (CK-2) 1.9 ng/mL (0.0-4.0) 08/19/20 16:14 CK-MB (CK-2) Rel Index 1.0 (0-4) 08/19/20 16:14 Troponin T < 0.010 ng/mL (0.00-0.029) 08/19/20 16:14 Total Protein 7.6 g/dL (6.3-8.2) 08/19/20 16:14 Albumin 4.3 g/dL (3.9-5) 08/19/20 16:14 Albumin/Globulin Ratio 1.3 % 08/19/20 16:14 PTH Intact 103.8 pg/mL (15-65) H 08/19/20 17:28 Urine Color Straw (Yellow) 08/19/20 18:31 Urine Turbidity Clear (Clear) 08/19/20 18:31 Urine pH 8.0 (5.0-7.0) H 08/19/20 18:31 Ur Specific [place] 1.011 (1.003-1.030) 08/19/20 18:31 Urine Protein 100 mg/dl mg/dL (Negative) 08/19/20 18:31 Urine Glucose (UA) Neg mg/dL (Negative) 08/19/20 18:31 Urine Ketones Tr mg/dL (Negative) 08/19/20 18:31 Urine Blood Sm (Negative) 08/19/20 18:31 Urine Nitrite Neg (Negative) 08/19/20 18:31 Urine Bilirubin Neg (Negative) 08/19/20 18:31 Urine Urobilinogen < 2.0 mg/dL (<2.0) 08/19/20 18:31 Ur Leukocyte Esterase Tr (Negative) 08/19/20 18:31 Urine WBC (Auto) 7.0 /HPF (0.0-6.0) H 08/19/20 18:31 Urine RBC (Auto) 4.0 /HPF (0.0-6.0) 08/19/20 18:31 U Epithel Cells (Auto) 3.0 /HPF (0-13.0) 08/19/20 18:31 Urine Creatinine 81.3 mg/dL (0.1-20.0) H 08/20/20 16:15 Urine Sodium 93 mmol/L 08/20/20 16:15 Urine Opiates Screen Negative 08/19/20 18:31 Urine Methadone Screen Negative 08/19/20 18:31 Ur Barbiturates Screen Negative 08/19/20 18:31 Ur Phencyclidine Scrn Negative 08/19/20 18:31 Ur Amphetamines Screen Negative 08/19/20 18:31 U Benzodiazepines Scrn Negative 08/19/20 18:31 Urine Cocaine Screen Negative 08/19/20 18:31 U Marijuana (THC) Screen Negative 08/19/20 18:31 Drugs of Abuse Note Disclamer 08/19/20 18:31 Plasma/Serum Alcohol < 0.01 % (0-0.07) 08/19/20 16:14 Coronavirus (PCR) Negative (Negative) 08/20/20 Unknown Hepatitis A IgM Ab Non-reactive (NonReactive) 08/19/20 17:28 Hep Bs Antigen Non-reactive (Negative) 08/19/20 17:28 Hep B Core IgM Ab Non-reactive (NonReactive) 08/19/20 17:28 Hepatitis C Antibody Non-reactive (NonReactive) 08/19/20 17:28 HIV 1&2 Antibody Rapid Non react (Non React) 08/19/20 17:28 HIV P24 Antigen Non react (Non React) 08/19/20 17:28 Microbiology: Microbiology 08/19/20 18:31 Urine,Catheterized - Indwelling Catheter Urine Culture - Preliminary NO GROWTH AFTER 24 HOURS Bowman/IV: Voiding Method Indwelling Catheter Active Medications - Current Medications Current Medications: Generic Name Dose Route Start Last Admin Trade Name Freq PRN Reason Stop Dose Admin Acetaminophen 650 mg 08/20/20 14:00 08/22/20 07:39 Acetaminophen 325 Mg Tab PO 650 mg Q4H PRN Administration Pain MILD(1-3)/Fever >100.5/[place] Albuterol 2.5 mg 08/19/20 19:45 Albuterol 2.5 Mg/3 Ml Nebu IH Q3HRT PRN Shortness Of Breath Amlodipine Besylate 10 mg 08/22/20 10:00 08/22/20 09:46 Amlodipine 10 Mg Tab PO 10 mg QDAY RADAH Administration Dextrose 50 ml 08/20/20 12:15 Dextrose 50% In Water (25gm) 50 Ml Syringe IV Q30MIN PRN Hypoglycemia Protocol Famotidine 10 mg 08/20/20 22:00 08/22/20 09:45 Famotidine 20 Mg/2 Ml Inj IV 10 mg BID RADHA Administration Heparin Sodium (Porcine) 3,900 unit 08/20/20 11:30 Heparin 10,000 Units/10 Ml Vial 40 unit/kg (3900 unit) IV Q6H PRN Anti-Xa Assay < 0.1 units/ml Hydralazine HCl 10 mg 08/20/20 17:00 08/21/20 18:32 Hydralazine 20 Mg/1 Ml Inj IV 10 mg Q4H PRN Administration Hypertension Heparin Sodium/Sodium Chloride 25,000 unit in 500 mls @ 29 mls/hr 08/20/20 11:30 08/22/20 09:50 Heparin/ 0.45% Nacl-25,000 Unit/500 Ml IV 1,250 units/hr TITR RADHA 25 mls/hr Administration Protocol 1,450 UNITS/HR Dextrose/Sodium Chloride 1,000 mls @ 125 mls/hr 08/20/20 17:00 08/22/20 06:40 D5/0.45ns IV 125 mls/hr DIRECT RADHA Administration Labetalol HCl 10 mg 08/20/20 13:00 Labetalol 20 Mg/4 Ml Inj IV Q6HR PRN Hypertension Ondansetron HCl 4 mg 08/20/20 13:00 08/21/20 15:37 Ondansetron 4 Mg/2 Ml Inj IV 4 mg Q8H PRN Administration Nausea And Vomiting Sodium Chloride 10 ml 08/19/20 22:00 08/22/20 09:47 Sodium Chloride 0.9% 10 Ml Flush Syringe IV 10 ml BID RADHA Administration Sodium Chloride 10 ml 08/19/20 19:45 Sodium Chloride 0.9% 10 Ml Flush Syringe IV PRN PRN LINE FLUSH Tramadol HCl 50 mg 08/19/20 20:03 08/22/20 09:52 Tramadol 50 Mg Tab PO 50 mg Q6H PRN Administration Pain, Moderate (4-6) Nutrition/Malnutrition Assess - Dietary Evaluation Nutrition/Malnutrition Findings: Nutrition Notes Start: 08/21/20 07:38 Freq: Status: Active Protocol: Document 08/21/20 07:38 (Rec: 08/21/20 07:45 MK [id number]) Nutrition Notes Need for Assessment generated from: MD Order Initial or Follow up Assessment Current Diagnosis Acute Kidney Injury, Hypertension Other Pertinent Diagnosis debility, dementia, encephalopathy Current Diet NPO Labs/Tests Na 148 BUN 57 Cr 5.4 Pertinent Medications D5 1/2 NS at 125 ml/hr (08/20) Kionex Height 5 ft 7 in Weight 97.3 kg Ajo Body Weight (kg) 61.36 BMI 33.5 Weight Status Obese Subjective/Other Information MD order for TF if pt fails speech eval. PIN PULLER recommedends regular diet. Will follow for intakes. Burn Absent Trauma Absent Current % PO Negligible Minimum of two criteria No physical signs of malnutrition #1 Nutrition Diagnosis No nutrition diagnosis at this time Is patient on ventilator? No Is Patient Ambulatory and/or Out of Bed No REE-([facility]-confined to bed) 1877.628 Kcal/Kg value to use for calculation 15 Approximate Energy Requirements Using 1460 kcal/Kg Calculation Used for Recommendations Kcal/kg Additional Notes Protein: (0.8-1.2g/kg AdjBW: 79kg) 63-95g Fluid: 1 ml/kcal Nutrition Intervention Change Diet Order: Advance as able Goal #1 Diet advancement Follow-Up By: 08/23/20 Additional Comments FU for diet advancement and intakes
[2020-08-22 11:31] LABS: ANA Screen, IFA Negative (Negative)
--- NOTE | 2020-08-22 13:17 | Progress Note ---
Assessment and Plan Assessment Acute kidney injury, unknown baseline Bilateral hydronephrosis Hyperkalemia Hypernatremia Acute encephalopathy Vascular dementia LE DVT, on heparin Recommendations Creatinine improving following Bowman placement, continue Bowman Urology consulted, recommendations reviewed No indication for dialysis at this time Monitor labs and urine output daily Continue D5 1/2 NS fluids IV Renally dose medications Avoid nephrotoxins Renal diet Subjective Date of service: 08/22/20 Principal diagnosis: JENNIFER Interval history: Tolerating diet. Good urine output. Objective - Exam Narrative Exam: General: No acute distress Neck: Supple, no JVD Chest: Clear to auscultation bilaterally Heart: RRR, S1 and S2, no pericardial rub Abdomen: Soft, nontender, no renal bruit Extremity: No peripheral cyanosis, edema Neurological: Awake and alert. No astreixis Dermatology: No skin rash Psych: Calm, cooperative Musculoskeletal: No joint effusion - Vital Signs Vital signs: Vital Signs - 12hr 08/22/20 08/22/20 08/22/20 05:06 09:32 09:46 Temperature 99.1 F Pulse Rate 88 77 Respiratory 20 Rate Blood Pressure 168/67 152/64 O2 Sat by Pulse 100 100 Oximetry - Lab 08/22/20 07:19 08/22/20 07:19 Most recent lab results Calcium 8.7 mg/dL (8.4-10.2) 08/22/20 07:19 Urine Creatinine 81.3 mg/dL (0.1-20.0) H 08/20/20 16:15 Urine Sodium 93 mmol/L 08/20/20 16:15 Medications & Allergies - Medications Allergies/Adverse Reactions: Allergies No Known Allergies Allergy (Verified 08/19/20 15:50) Home Medications: Home Medications Medication Instructions Recorded Confirmed Last Taken Type EPINEPHrine (NF) [Epipen (Nf)] 0.3 mg IM PRN #1 syringekit 04/27/14 08/22/20 08/09/20 Rx Prednisone [Prednisone 10 mg 10 mg PO .TAPER #1 tab.ds.pk 04/27/14 08/22/20 08/15/20 Rx (6-Day Pack, 21 Tabs)] Azithromycin [Zithromax Z-JANES] 1 dose PO DAILY 5 Days tab 07/09/15 08/22/20 08/15/20 Rx Ibuprofen [Motrin] 800 mg PO Q8HR PRN #30 tablet 07/09/15 08/22/20 08/15/20 Rx traMADoL [Ultram 50 MG tab] 50 mg PO Q6HR PRN #20 tablet 07/09/15 08/22/20 0 08/15/20 Rx Active Medications: Generic Name Dose Route Start Last Admin Trade Name Freq PRN Reason Stop Dose Admin Acetaminophen 650 mg 08/20/20 14:00 08/22/20 07:39 Acetaminophen 325 Mg Tab PO 650 mg Q4H PRN Administration Pain MILD(1-3)/Fever >100.5/[place] Albuterol 2.5 mg 08/19/20 19:45 Albuterol 2.5 Mg/3 Ml Nebu IH Q3HRT PRN Shortness Of Breath Amlodipine Besylate 10 mg 08/22/20 10:00 08/22/20 09:46 Amlodipine 10 Mg Tab PO 10 mg QDAY RADHA Administration Dextrose 50 ml 08/20/20 12:15 Dextrose 50% In Water (25gm) 50 Ml Syringe IV Q30MIN PRN Hypoglycemia Protocol Famotidine 10 mg 08/20/20 22:00 08/22/20 09:45 Famotidine 20 Mg/2 Ml Inj IV 10 mg BID RADHA Administration Heparin Sodium (Porcine) 3,900 unit 08/20/20 11:30 Heparin 10,000 Units/10 Ml Vial 40 unit/kg (3900 unit) IV Q6H PRN Anti-Xa Assay < 0.1 units/ml Hydralazine HCl 10 mg 08/20/20 17:00 08/21/20 18:32 Hydralazine 20 Mg/1 Ml Inj IV 10 mg Q4H PRN Administration Hypertension Heparin Sodium/Sodium Chloride 25,000 unit in 500 mls @ 29 mls/hr 08/20/20 11:30 08/22/20 09:50 Heparin/ 0.45% Nacl-25,000 Unit/500 Ml IV 1,250 units/hr TITR RADHA 25 mls/hr Administration Protocol 1,450 UNITS/HR Dextrose/Sodium Chloride 1,000 mls @ 125 mls/hr 08/20/20 17:00 08/22/20 06:40 D5/0.45ns IV 125 mls/hr DIRECT RAHDA Administration Labetalol HCl 10 mg 08/20/20 13:00 Labetalol 20 Mg/4 Ml Inj IV Q6HR PRN Hypertension Ondansetron HCl 4 mg 08/20/20 13:00 08/21/20 15:37 Ondansetron 4 Mg/2 Ml Inj IV 4 mg Q8H PRN Administration Nausea And Vomiting Sodium Chloride 10 ml 08/19/20 22:00 08/22/20 09:47 Sodium Chloride 0.9% 10 Ml Flush Syringe IV 10 ml BID RADHA Administration Sodium Chloride 10 ml 08/19/20 19:45 Sodium Chloride 0.9% 10 Ml Flush Syringe IV PRN PRN LINE FLUSH Tramadol HCl 50 mg 08/19/20 20:03 08/22/20 09:52 Tramadol 50 Mg Tab PO 50 mg Q6H PRN Administration Pain, Moderate (4-6)
--- NOTE | 2020-08-22 14:16 | Progress Note ---
Assessment and Plan 65 YO Female with Vascular Dementia, Cerebral Atherosclerosis, HTN, Debility, RLE DVT not taking therapeutic anticoagulation presents to ED for evaluation. Patient has diminished cognition at the time my evaluation is unable to provide history. Patient history provided by the patient who is available via telephone for interview. As per , the patient has experienced increased worsening and confusion over the past 1 week with concomitant acutely worsening of confusion over the past 24 hours. Patient is currently bedbound, nonambulatory, and requires 6/6 assistance with activities of daily living, and is unable to make needs known or follow simple commands. EMS notified and upon arrival the patient was found to be in distress and subsequently transported to [facility] for further care and evaluation of the aforementioned symptoms. Patient found to have JENNIFER with ATN with a serum creatinine of 7.4. The patient was also found to have a systolic blood pressure of 203 which is consistent with hypertensive emergency which was complicated by hypertensive encephalopathy, metabolic acidosis. Nephrology team consulted in ED. Critical care team consulted. Patient admitted to ICU and initiated on Cardene drip due to increased risk of further worsening symptoms. No further history is obtainable. Patient has diminished cognition but has a positive gag reflex and is able to protect her airway without difficulty. No reports of fever, chills, chest pain, palpitation, productive cough, skin rash, recent ill contacts, trauma, or known exposure to COVID-19. Patient sleeping. On 2 lires O2.. O2 saturation 100%. No Acute respiratory distress. Patient found to have left leg DVT. Patient started on I/V Heparin. Chest xray done 08/19/20 reported No acute findings. Duplex scan of Lower extremity 08/19/20 reported Evaluation positive for nonocclusive thrombus within the left common femoral vein . No evidence of thrombus within the right lower extremity. Patient is on I/V Heparin, Famotidine and albuterol inhaler. - Patient Problems (1) Acute kidney injury (JENNIFER) with acute tubular necrosis (ATN) Current Visit: Yes Status: Acute Plan to address problem: Management as per nephrology. (2) Altered mental state Current Visit: Yes Status: Acute Qualifiers: Altered mental status type: delirium Qualified Code(s): R41.0 - Disorientation, unspecified Plan to address problem: Improving. Management as per primary care. (3) Hypertensive emergency Current Visit: Yes Status: Acute Plan to address problem: Management as per primary care. (4) Metabolic acidosis Current Visit: Yes Status: Acute Plan to address problem: Improving. Anion gap 14. Metabolic acidosis likely from renal failure. (5) Obesity (BMI 30.0-34.9) Current Visit: Yes Status: Acute Plan to address problem: Counselled to loose weight. Diet and exercise. Subjective Date of service: 08/22/20 Principal diagnosis: JENNIFER Interval history: 65 YO Female with Vascular Dementia, Cerebral Atherosclerosis, HTN, Debility, RLE DVT not taking therapeutic anticoagulation presents to ED for evaluation. Patient has diminished cognition at the time my evaluation is unable to provide history. Patient history provided by the patient who is available via telephone for interview. As per , the patient has experienced increased worsening and confusion over the past 1 week with concomitant acutely worsening of confusion over the past 24 hours. Patient is currently bedbound, nonambulatory, and requires 6/6 assistance with activities of daily living, and is unable to make needs known or follow simple commands. EMS notified and upon arrival the patient was found to be in distress and subsequently transported to [facility] for further care and evaluation of the aforementioned symptoms. Patient found to have JENNIFER with ATN with a serum creatinine of 7.4. The patient was also found to have a systolic blood pressure of 203 which is consistent with hypertensive emergency which was complicated by hypertensive encephalopathy, metabolic acidosis. Nephrology team consulted in ED. Critical care team consulted. Patient admitted to ICU and initiated on Cardene drip due to increased risk of further worsening symptoms. No further history is obtainable. Patient has diminished cognition but has a positive gag reflex and is able to protect her airway without difficulty. No reports of fever, chills, chest pain, palpitation, productive cough, skin rash, recent ill contacts, trauma, or known exposure to COVID-19. Patient sleeping. On 2 lires O2.. O2 saturation 100%. No Acute respiratory distress. Patient found to have left leg DVT. Patient started on I/V Heparin. Chest xray done 08/19/20 reported No acute findings. Duplex scan of Lower extremity 08/19/20 reported Evaluation positive for nonocclusive thrombus within the left common femoral vein . No evidence of thrombus within the right lower extremity. Patient is on I/V Heparin, Famotidine and albuterol inhaler. Objective Vital Signs - 12hr 08/22/20 08/22/2021 05:06 09:32 09:46 Temperature 99.1 F Pulse Rate 88 77 Respiratory 20 Rate Blood Pressure 168/67 152/64 O2 Sat by Pulse 100 100 Oximetry 08/22/20 12:11 Temperature 98.8 F Pulse Rate 80 Respiratory 18 Rate Blood Pressure 147/68 O2 Sat by Pulse 100 Oximetry Constitutional: no acute distress, asleep Eyes: non-icteric ENT: oropharynx moist Neck: supple, no JVD Effort: normal Ascultation: Bilateral: diminished breath sounds Cardiovascular: regular rate and rhythm Gastrointestinal: normoactive bowel sounds, soft, non-tender Integumentary: normal Extremities: edema, other (Swelling left leg.) Neurologic: normal mental status, non-focal exam, pupils equal and round, CN II- XII normal Psychiatric: mood appropriate CBC and BMP: 08/26/20 04:13 08/26/20 04:13 ABG, PT/INR, D-dimer: PT/INR, D-dimer PT 14.9 Sec. (12.2-14.9) 08/20/20 14:40 INR 1.11 (0.87-1.13) 08/20/20 14:40 Abnormal lab findings: Abnormal Labs 08/19/20 08/19/20 08/19/20 16:14 16:14 17:28 WBC RBC 2.79 L Hgb 9.2 L Hct 27.2 L MCV MCH 33 H Lymph % (Auto) 12.6 L Pi[place] % (Auto) 7.8 H [place] # (Auto) Seg Neutrophils % 78.6 H Seg Neutrophils # 8.4 H Heparin Anti-Xa Level Sodium Potassium 5.6 H Chloride Carbon Dioxide 21 L BUN 59 H Creatinine 7.4 H Glucose 110 H POC Glucose Total Creatine Kinase 184 H PTH Intact 103.8 H Urine pH Urine WBC (Auto) Urine Creatinine 08/19/20 08/19/20 08/20/20 18:31 19:46 07:30 WBC 11.1 H RBC 2.80 L Hgb 9.2 L Hct 27.8 L MCV 99 H MCH 33 H Lymph % (Auto) [place] % (Auto) 10.2 H [place] # (Auto) 1.1 H Seg Neutrophils % 70.2 H Seg Neutrophils # 7.8 H Heparin Anti-Xa Level Sodium Potassium 5.4 H Chloride Carbon Dioxide BUN 58 H Creatinine 7.3 H Glucose 103 H POC Glucose Total Creatine Kinase PTH Intact Urine pH 8.0 H Urine WBC (Auto) 7.0 H Urine Creatinine 08/20/20 08/20/20 08/20/20 07:30 14:40 16:15 WBC RBC Hgb 8.9 L Hct 26.7 L MCV MCH Lymph % (Auto) Pi[place] % (Auto) Pi[place] # (Auto) Seg Neutrophils % Seg Neutrophils # Heparin Anti-Xa Level Sodium 149 H Potassium 5.1 H Chloride 109.2 H Carbon Dioxide BUN 57 H Creatinine 6.5 H Glucose POC Glucose Total Creatine Kinase PTH Intact Urine pH Urine WBC (Auto) Urine Creatinine 81.3 H 08/20/20 08/20/20 08/21/20 18:54 23:06 04:08 WBC RBC 2.64 L Hgb 8.9 L Hct 26.0 L MCV 98 H MCH 34 H Lymph % (Auto) [place] % (Auto) Pi[place] # (Auto) Seg Neutrophils % Seg Neutrophils # Heparin Anti-Xa Level 0.76 H Sodium Potassium Chloride Carbon Dioxide BUN Creatinine Glucose POC Glucose Total Creatine Kinase 229 H PTH Intact Urine pH Urine WBC (Auto) Urine Creatinine 08/21/20 08/21/20 08/21/20 04:08 06:18 11:13 WBC RBC Hgb Hct MCV MCH Lymph % (Auto) [place] % (Auto) [place] # (Auto) Seg Neutrophils % Seg Neutrophils # Heparin Anti-Xa Level 0.75 H Sodium 148 H Potassium Chloride 108.3 H Carbon Dioxide BUN 57 H Creatinine 5.4 H Glucose POC Glucose 118 H Total Creatine Kinase PTH Intact Urine pH Urine WBC (Auto) Urine Creatinine 08/21/20 08/22/20 08/22/20 21:51 07:19 07:19 WBC RBC Hgb 8.3 L Hct 25.3 L MCV MCH Lymph % (Auto) [place] % (Auto) [place] # (Auto) Seg Neutrophils % Seg Neutrophils # Heparin Anti-Xa Level Sodium Potassium Chloride 107.3 H Carbon Dioxide BUN 40 H Creatinine 4.3 H Glucose 102 H POC Glucose 125 H Total Creatine Kinase PTH Intact Urine pH Urine WBC (Auto) Urine Creatinine 08/22/20 08/22/20 07:52 12:08 WBC RBC Hgb Hct MCV MCH Lymph % (Auto) [place] % (Auto) [place] # (Auto) Seg Neutrophils % Seg Neutrophils # Heparin Anti-Xa Level Sodium Potassium Chloride Carbon Dioxide BUN Creatinine Glucose POC Glucose 108 H 137 H Total Creatine Kinase PTH Intact Urine pH Urine WBC (Auto) Urine Creatinine
[2020-08-22 15:45] LABS: Myeloperoxidase Antibody <1.0 AI (<1.0)
[2020-08-22] MEDS: ONDANSETRON 4 MG/2 ML INJ IV PRN (20:06)
[2020-08-23] MEDS: hydrALAZINE 20 MG/1 ML INJ IV PRN (00:41)
[2020-08-23] MEDS: HEPARIN/ 0.45% NACL DRIP 25,000 UNIT/500 ML BAG IV SCH (05:41)
[2020-08-23 05:48] LABS: Hematocrit 25.6 % (30.3-42.9); Hemoglobin 8.4 gm/dl (10.1-14.3); Mean Corpuscular HGB Conc 33 % (30-34); Mean Corpuscular Volume 98 fl (79-97); Platelet Count 249 K/mm3 (140-440); Red Blood Count 2.61 M/mm3 (3.65-5.03)
[2020-08-23] MEDS: ONDANSETRON 4 MG/2 ML INJ IV PRN ×2 (05:50→16:02)
[2020-08-23] MEDS: D5W/0.45% NACL 1,000 ML IV SCH (05:51)
[2020-08-23 06:11] LABS: Calcium 8.6 mg/dL (8.4-10.2)
[2020-08-23] MEDS ORDERED: ceFAZolin/STERILE WATER 2 GM/20 ML SYRINGE IV NR (09:00)
[2020-08-23] MEDS: amLODIPine 10 MG TAB PO SCH (09:22)
[2020-08-23] MEDS: FAMOTIDINE 20 MG/2 ML INJ IV SCH ×2 (09:22→21:54)
[2020-08-23] MEDS ORDERED: LACTATED RINGERS 1,000 ML IV SCH (09:30)
[2020-08-23] MEDS ORDERED: propofoL 200 MG/20 ML VIAL IV ONE ×2 (09:41→10:22)
[2020-08-23] MEDS ORDERED: LIDOCAINE MPF (2%) 20 MG/1 ML VIAL 5 ML ONE ×2 (09:41→10:22)
[2020-08-23] MEDS ORDERED: fentaNYL 100 MCG/2 ML INJ ONE (09:41)
[2020-08-23] MEDS ORDERED: HYDROmorphone 1 MG/1 ML INJ IV PRN ×2 (09:47)
[2020-08-23] MEDS ORDERED: ONDANSETRON 4 MG/2 ML INJ IV PRN (09:47)
--- NOTE | 2020-08-23 09:48 | Anesthesia Day of Surgery ---
Anesthesia Day of Surgery - Day of Surgery Patient Examined: Yes Patient H&P Reviewed: Yes Patient is NPO: Yes
--- NOTE | 2020-08-23 09:52 | Anesthesia Consultation ---
Anesthesia Consult and Med Hx Date of service: 08/23/20 - Airway Anesthetic Teeth Evaluation: Good (Missing) ROM Head & Neck: Adequate Mental/Hyoid Distance: Adequate Mallampati Class: Class II Intubation Access Assessment: Good - Pre-Operative Health Status ASA Pre-Surgery Classification: ASA3 Proposed Anesthetic Plan: General - Pulmonary Hx Asthma: Yes Hx Pneumonia: No (COVID negative) - Cardiovascular System Hx Hypertension: Yes Hx Peripheral Vascular Disease: Yes (RLE DVT on heparin) - Central Nervous System Hx Neuromuscular Disorder: Yes (Vascular Dementia, Cerebral Atherosclerosis, acute encephalopathy) CVA: Yes (Acute ischemic?) - Endocrine Hx Renal Disease: Yes (JENNIFER/ATN; bilateral hydronephr.) Hx Non-Insulin Dependent Diabetes: Yes - Hematic Hx Anemia: Yes Hx Sickle Cell Disease: No - Other Systems Hx Obesity: Yes (nonambulatory/bedbound)
--- NOTE | 2020-08-23 09:56 | Progress Note ---
Assessment and Plan Assessment and plan: This is a 65-year-old female with vascular dementia, cerebral sclerosis, nonambulatory/bedbound, hypertension, debility, right lower leg DVT admitted with JENNIFER, hypertensive emergency, hypertensive encephalopathy, metabolic acidosis, hyperkalemia Hypertensive emergency Hypertensive encephalopathy Acute kidney injury Left lower leg nonocclusive DVT Leukocytosis Acute dysphagia Hypernatremia Hyperchloremia Cerebral atherosclerosis Vascular dementia Metabolic acidosis History of right lower leg DVT -[facility], nephrology, urology and vascular surgery consulted, appreciated recommendations -COVID 19 PCR pending -s/p cardene gtt -Continue amlodipine, ST saw patient, passed swallow study, renal diet -Assessment for HD per Nephrology. -Strict I&O -Daily weights -Avoid nephrotoxic medications. Creatinine improving -Renally dose medications. -Heparin gtt. Patient's left leg swelling has been going on for about 3 to 4 months, states that she was to have a procedure this week to try to rid the area of some scar tissue that is causing her leg swelling. Spoke with the , not sure if patient was on any blood thinners. We will have physical therapy evaluate the patient, will speak with vascular surgery pertaining to patient's left leg. We will attempt to get records from [facility]. -MIVF per nephro -08/19 CT head limited by motion and positioning however there is mild microvas cular angiopathic without clear CT evidence of acute intracranial hemorrhage -08/09 CT abdomen/pelvis shows moderate right hydronephrosis and dilation of the proximal to mid right ureter, moderate left hydroureteronephrosis with no obvious obstructing stone or lesion, mildly prominent left groin, asymmetric soft tissue swelling involving the visualized left anterior thigh and left flank, mild deep prominent left groin lymph nodes which are nonspecific and likely reactive -08/19 renal ultrasound shows moderate bilateral hydronephrosis -08/19 bilateral lower extremity ultrasound shows positive nonocclusive thrombus in the left common femoral vein without evidence of thrombus within the right lower extremity -08/20 Cystogram completed, urology following. Cystogram completed, patient will need cystoscopy and possible stent placement -Trend CBC, BMP DVT/GI prophylaxis: Heparin drip Dispo: Continue treatment for urinary retention, JENNIFER, lower extremity nonocclusive thrombus. Patient to have cystoscopy today. History Interval history: This is a 65-year-old female with vascular dementia, cerebral arthrosclerosis, nonambulatory/bedbound, hypertension, debility, right lower leg DVT (not on therapeutic anticoagulation) presented to the emergency department on 08/19 with complaints of increased worsening of confusion of the past week which increased over the past 24 hours per her via EMS. Work-up in the emergency department revealed JENNIFER with ATN, systolic blood pressure of 203 consistent with hypertensive emergency complicated by hypertensive encephalopathy and metabolic acidosis. Consults placed to nephrology and [facility]. Patient was started on a Cardene drip and transferred to ICU. Patient admitted to the hospital service with hypertensive emergency, acute kidney injury, hypertensive encephalopathy and hyperkalemia. 08/20: Patient noted to have a left lower leg DVT and started on heparin drip. Patient is confused therefore nurse was asked to place a Dobbhoff tube. Speech evaluation ordered as bedside swallow evaluation could not be completed due to AMS. Patient has been titrated off Cardene drip and has been started on p.o. antihypertensive. Patient has been downgraded from ICU to telemetry. Of note patient received 4 to 5 mg of Ativan overnight in the emergency room. This morning patient has hyperchloremia, hypernatremia, hyperchloremia and her kidney function tests slightly improved. Patient received Kayexalate. Urology was consulted today. We will give the patient 1 LR bolus and prn labetalol has been ordered 08/21: Patient seen and examined this morning, much more awake, passed swallowing bedside test, spoke with the and the patient, patient knows that she is in the hospital she has been here for the last 2 days. Patient states that she is not in any pain. Patient does not remember much. 08/22: Patient seen and examined, no confusion. States that she has left lower extremity pain. 08/12/1720: Patient seen and examined, states that she is improving, patient with good urine output, continues to have left leg swelling. Hospitalist Physical - Physical exam Narrative exam: General appearance: no acute distress, well-nourished EENT: PERRL, EOM intact, hearing intact, clear oral mucosa Neck: Present: supple, normal ROM Respiratory: bilateral CTA, negative: rales, rhonchi, wheezing Cardiovascular: Regular rate/rhythm, Normal S1 & S2. No gallop, rub Extremities: Left lower extremity with pain in thigh, swelling, no ischemia, normal temperature, normal color Abdominal: soft, no tenderness, non-distended, normal bowel sounds Integumentary: Present: clear, warm, dry no wounds, no erythema noted Psychiatric: appropriate mood/affect, intact judgment & insight, minimal confusion Neurologic: CNII-XII intact, moves all extremities, no sensory or motor abnormalities - Constitutional Vitals: Temp Pulse Resp BP Pulse Ox 98.7 F 79 20 162/72 100 08/23/20 05:58 08/23/20 05:58 08/23/20 05:58 08/23/20 05:58 08/23/20 05:58 General appearance: Present: no acute distress, obese HEART Score - HEART Score Troponin: Troponin T < 0.010 ng/mL (0.00-0.029) 08/19/20 16:14 Results - Labs CBC & Chem 7: 08/23/20 05:33 08/23/20 05:33 Labs: Laboratory Last Values WBC 9.4 K/mm3 (4.5-11.0) 08/23/20 05:33 RBC 2.61 M/mm3 (3.65-5.03) L 08/23/20 05:33 Hgb 8.4 gm/dl (10.1-14.3) L 08/23/20 05:33 Hct 25.6 % (30.3-42.9) L 08/23/20 05:33 MCV 98 fl (79-97) H 08/23/20 05:33 MCH 32 pg (28-32) 08/23/20 05:33 MCHC 33 % (30-34) 08/23/20 05:33 RDW 14.0 % (13.2-15.2) 08/23/20 05:33 Plt Count 249 K/mm3 (140-440) 08/23/20 05:33 Lymph % (Auto) 18.9 % (13.4-35.0) 08/20/20 07:30 Ogle % (Auto) 10.2 % (0.0-7.3) H 08/20/20 07:30 Eos % (Auto) 0.1 % (0.0-4.3) 08/20/20 07:30 Baso % (Auto) 0.6 % (0.0-1.8) 08/20/20 07:30 Lymph # (Auto) 2.1 K/mm3 (1.2-5.4) 08/20/20 07:30 Ogle # (Auto) 1.1 K/mm3 (0.0-0.8) H 08/20/20 07:30 Eos # (Auto) 0.0 K/mm3 (0.0-0.4) 08/20/20 07:30 Baso # (Auto) 0.1 K/mm3 (0.0-0.1) 08/20/20 07:30 Seg Neutrophils % 70.2 % (40.0-70.0) H 08/20/20 07:30 Seg Neutrophils # 7.8 K/mm3 (1.8-7.7) H 08/20/20 07:30 PT 14.9 Sec. (12.2-14.9) 08/20/20 14:40 INR 1.11 (0.87-1.13) 08/20/20 14:40 APTT 28.7 Sec. (24.2-36.6) 08/20/20 14:40 Thrombin Time 16.9 Sec. (15.1-19.6) 08/19/20 16:14 Heparin Anti-Xa Level 0.62 U.I./ml (0.3-0.7) 08/23/20 05:33 Sodium 142 mmol/L (137-145) 08/23/20 05:33 Potassium 4.2 mmol/L (3.6-5.0) 08/23/20 05:33 Chloride 105.9 mmol/L (98-107) 08/23/20 05:33 Carbon Dioxide 25 mmol/L (22-30) 08/23/20 05:33 Anion Gap 15 mmol/L 08/23/20 05:33 BUN 30 mg/dL (7-17) H 08/23/20 05:33 Creatinine 3.9 mg/dL (0.6-1.2) H 08/23/20 05:33 Estimated GFR 14 ml/min 08/23/20 05:33 BUN/Creatinine Ratio 8 % 08/23/20 05:33 Glucose 113 mg/dL (65-100) H 08/23/20 05:33 POC Glucose 88 mg/dL (70-105) 08/23/20 09:43 Calcium 8.6 mg/dL (8.4-10.2) 08/23/20 05:33 Total Bilirubin 0.30 mg/dL (0.1-1.2) 08/19/20 16:14 AST 11 units/L (5-40) 08/19/20 16:14 ALT 9 units/L (7-56) 08/19/20 16:14 Alkaline Phosphatase 78 units/L (35-129) 08/19/20 16:14 Ammonia 40.0 umol/L (25-60) 08/19/20 19:46 Total Creatine Kinase 229 units/L (30-135) H 08/20/20 18:54 CK-MB (CK-2) 1.9 ng/mL (0.0-4.0) 08/19/20 16:14 CK-MB (CK-2) Rel Index 1.0 (0-4) 08/19/20 16:14 Troponin T < 0.010 ng/mL (0.00-0.029) 08/19/20 16:14 Total Protein 7.6 g/dL (6.3-8.2) 08/19/20 16:14 Albumin 4.3 g/dL (3.9-5) 08/19/20 16:14 Albumin/Globulin Ratio 1.3 % 08/19/20 16:14 PTH Intact 103.8 pg/mL (15-65) H 08/19/20 17:28 Urine Color Straw (Yellow) 08/19/20 18:31 Urine Turbidity Clear (Clear) 08/19/20 18:31 Urine pH 8.0 (5.0-7.0) H 08/19/20 18:31 Ur Specific [place] 1.011 (1.003-1.030) 08/19/20 18:31 Urine Protein 100 mg/dl mg/dL (Negative) 08/19/20 18:31 Urine Glucose (UA) Neg mg/dL (Negative) 08/19/20 18:31 Urine Ketones Tr mg/dL (Negative) 08/19/20 18:31 Urine Blood Sm (Negative) 08/19/20 18:31 Urine Nitrite Neg (Negative) 08/19/20 18:31 Urine Bilirubin Neg (Negative) 08/19/20 18:31 Urine Urobilinogen < 2.0 mg/dL (<2.0) 08/19/20 18:31 Ur Leukocyte Esterase Tr (Negative) 08/19/20 18:31 Urine WBC (Auto) 7.0 /HPF (0.0-6.0) H 08/19/20 18:31 Urine RBC (Auto) 4.0 /HPF (0.0-6.0) 08/19/20 18:31 U Epithel Cells (Auto) 3.0 /HPF (0-13.0) 08/19/20 18:31 Urine Creatinine 81.3 mg/dL (0.1-20.0) H 08/20/20 16:15 Urine Sodium 93 mmol/L 08/20/20 16:15 Urine Opiates Screen Negative 08/19/20 18:31 Urine Methadone Screen Negative 08/19/20 18:31 Ur Barbiturates Screen Negative 08/19/20 18:31 Ur Phencyclidine Scrn Negative 08/19/20 18:31 Ur Amphetamines Screen Negative 08/19/20 18:31 U Benzodiazepines Scrn Negative 08/19/20 18:31 Urine Cocaine Screen Negative 08/19/20 18:31 U Marijuana (THC) Screen Negative 08/19/20 18:31 Drugs of Abuse Note Disclamer 08/19/20 18:31 Plasma/Serum Alcohol < 0.01 % (0-0.07) 08/19/20 16:14 RICHY Screen Negative (Negative) 08/19/20 17:28 Proteinase 3 (PR3) Ab <1.0 AI (<1.0) 08/19/20 17:28 Myeloperoxidase Ab <1.0 AI (<1.0) 08/19/20 17:28 Coronavirus (PCR) Negative (Negative) 08/20/20 Unknown Hepatitis A IgM Ab Non-reactive (NonReactive) 08/19/20 17:28 Hep Bs Antigen Non-reactive (Negative) 08/19/20 17:28 Hep B Core IgM Ab Non-reactive (NonReactive) 08/19/20 17:28 Hepatitis C Antibody Non-reactive (NonReactive) 08/19/20 17:28 HIV 1&2 Antibody Rapid Non react (Non React) 08/19/20 17:28 HIV P24 Antigen Non react (Non React) 08/19/20 17:28 Microbiology: Microbiology 08/19/20 18:31 Urine,Catheterized - Indwelling Catheter Urine Culture - Final Bowman/IV: Voiding Method Indwelling Catheter Active Medications - Current Medications Current Medications: Generic Name Dose Route Start Last Admin Trade Name Freq PRN Reason Stop Dose Admin Acetaminophen 650 mg 08/20/20 14:00 08/22/20 07:39 Acetaminophen 325 Mg Tab PO 650 mg Q4H PRN Administration Pain MILD(1-3)/Fever >100.5/[place] Albuterol 2.5 mg 08/19/20 19:45 Albuterol 2.5 Mg/3 Ml Nebu IH Q3HRT PRN Shortness Of Breath Amlodipine Besylate 10 mg 08/22/20 10:00 08/23/20 09:22 Amlodipine 10 Mg Tab PO Not Given QDAY RADHA Cefazolin Sodium 2 gm 08/23/20 09:00 Cefazolin/Sterile Water 2 Gm/20 Ml Syringe IV 08/23/20 20:00 PREOP NR Dextrose 50 ml 08/20/20 12:15 Dextrose 50% In Water (25gm) 50 Ml Syringe IV Q30MIN PRN Hypoglycemia Protocol Famotidine 10 mg 08/20/20 22:00 08/23/20 09:22 Famotidine 20 Mg/2 Ml Inj IV Not Given BID RADHA Heparin Sodium (Porcine) 3,900 unit 08/20/20 11:30 Heparin 10,000 Units/10 Ml Vial 40 unit/kg (3900 unit) IV Q6H PRN Anti-Xa Assay < 0.1 units/ml Hydralazine HCl 10 mg 08/20/20 17:00 08/23/20 00:41 Hydralazine 20 Mg/1 Ml Inj IV 10 mg Q4H PRN Administration Hypertension Hydromorphone HCl 0.25 mg 08/23/20 09:47 Hydromorphone 1 Mg/1 Ml Inj IV Q10MIN PRN Pain, Moderate (4-6) Hydromorphone HCl 0.5 mg 08/23/20 09:47 Hydromorphone 1 Mg/1 Ml Inj IV Q10MIN PRN Pain , Severe (7-10) Heparin Sodium/Sodium Chloride 25,000 unit in 500 mls @ 29 mls/hr 08/20/20 11:30 08/23/20 07:13 Heparin/ 0.45% Nacl-25,000 Unit/500 Ml IV 1,250 units/hr TITR RADHA 25 mls/hr Titration Protocol 1,450 UNITS/HR Dextrose/Sodium Chloride 1,000 mls @ 125 mls/hr 08/20/20 17:00 08/23/20 05:51 D5/0.45ns IV 125 mls/hr DIRECT RADHA Administration Lactated Ringer's 1,000 mls @ 100 mls/hr 08/23/20 09:30 Lactated Ringers IV DIRECT RADHA Labetalol HCl 10 mg 08/20/20 13:00 Labetalol 20 Mg/4 Ml Inj IV Q6HR PRN Hypertension Ondansetron HCl 4 mg 08/20/20 13:00 08/23/20 05:50 Ondansetron 4 Mg/2 Ml Inj IV 4 mg Q8H PRN Administration Nausea And Vomiting Ondansetron HCl 4 mg 08/23/20 09:47 Ondansetron 4 Mg/2 Ml Inj IV ONCE PRN Nausea And Vomiting Sodium Chloride 10 ml 08/19/20 22:00 08/23/20 09:22 Sodium Chloride 0.9% 10 Ml Flush Syringe IV Not Given BID RADHA Sodium Chloride 10 ml 08/19/20 19:45 Sodium Chloride 0.9% 10 Ml Flush Syringe IV PRN PRN LINE FLUSH Tramadol HCl 50 mg 08/19/20 20:03 08/22/20 09:52 Tramadol 50 Mg Tab PO 50 mg Q6H PRN Administration Pain, Moderate (4-6) Nutrition/Malnutrition Assess - Dietary Evaluation Nutrition/Malnutrition Findings: Nutrition Notes Start: 08/21/20 07:38 Freq: Status: Active Protocol: Document 08/21/20 07:38 (Rec: 08/21/20 07:45 [id number]) Nutrition Notes Need for Assessment generated from: MD Order Initial or Follow up Assessment Current Diagnosis Acute Kidney Injury, Hypertension Other Pertinent Diagnosis debility, dementia, encephalopathy Current Diet NPO Labs/Tests Na 148 BUN 57 Cr 5.4 Pertinent Medications D5 1/2 NS at 125 ml/hr (08/20) Kionex Height 5 ft 7 in Weight 97.3 kg [place] Body Weight (kg) 61.36 BMI 33.5 Weight Status Obese Subjective/Other Information MD order for TF if pt fails speech eval. [employer] recommedends regular diet. Will follow for intakes. Burn Absent Trauma Absent Current % PO Negligible Minimum of two criteria No physical signs of malnutrition #1 Nutrition Diagnosis No nutrition diagnosis at this time Is patient on ventilator? No Is Patient Ambulatory and/or Out of Bed No REE-([place]-confined to bed) 1877.628 Kcal/Kg value to use for calculation 15 Approximate Energy Requirements Using 1460 kcal/Kg Calculation Used for Recommendations Kcal/kg Additional Notes Protein: (0.8-1.2g/kg AdjBW: 79kg) 63-95g Fluid: 1 ml/kcal Nutrition Intervention Change Diet Order: Advance as able Goal #1 Diet advancement Follow-Up By: 08/23/20 Additional Comments FU for diet advancement and intakes
[2020-08-23] MEDS ORDERED: WATER FOR IRRIG STERILE 1,500 ML BOTTLE IR ONE ×2 (11:09)
[2020-08-23] MEDS ORDERED: WATER FOR IRRIG STERILE 2000 ML IR ONE ×2 (11:09)
[2020-08-23] MEDS ORDERED: IOHEXOL 300 MG/ML 50ML IV ONE ×2 (11:09)
[2020-08-23] MEDS ORDERED: ONDANSETRON 4 MG/2 ML INJ ONE (11:20)
--- NOTE | 2020-08-23 11:40 | Post Operative Note ---
Date of procedure: 08/23/20 Pre-op diagnosis: bilat hydronephrosis Post-op diagnosis: same Procedure: cysto, rpg, bilat hydronephrosis Surgeon: DUSTIN VIEIRA Estimated blood loss: none Condition: stable Disposition: PACU (can dc hall at any time, appt in office 3-4 wks)
--- NOTE | 2020-08-23 13:04 | Electrocardiograph Report ---
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
--- NOTE | 2020-08-23 13:15 | Operative Report ---
DATE OF SURGERY: 08/23/2020 PREOPERATIVE DIAGNOSIS: Bilateral hydronephrosis. POSTOPERATIVE DIAGNOSIS: Bilateral hydronephrosis. PROCEDURE PERFORMED: Cystoscopy, bilateral retrograde pyelograms, bilateral double-J stent placement with external string (6-Thai 24 cm bilaterally). SURGEON: Yovany Cardona MD. ANESTHESIA: General. ESTIMATED BLOOD LOSS: Minimal. FLUIDS: Crystalloid. COMPLICATIONS: No complications. INDICATIONS: This 65-year-old female was admitted through the emergency room with creatinine of 6. Her original reason for admission was altered mental status. She also has a history of peripheral vascular disease and is on heparin. CT of abdomen and pelvis revealed bilateral hydronephrosis. Her creatinine gradually started to improve to a level of 4. She presents now for surgical intervention via chart review and discussing with her , Mr. Marcelo Eng. She has had some previous surgical intervention and looks like a hysterectomy. She presents now for evaluation. DESCRIPTION OF PROCEDURE: The patient was taken to the operative suite, placed in a supine position. After adequate general anesthesia, placed in the dorsal lithotomy position, prepped and draped in a sterile fashion. Pancystourethroscopy was performed with a 22-Thai Storz cystoscope. No bladder pathology. Both ureteral orifices in normal position. Broiler Supervisor film showed clips in the pelvis, consistent with previous surgeries, suggestive of hysterectomy. Bilateral retrograde pyelograms were obtained with an 8-Thai [place] catheter and 8 mL of contrast. The patient had normal caliber ureter, distal third of the ureter; however, hydronephrosis above that. In light of her heparin therapy, I did not do a ureteroscopy. Therefore, a 0.035 Glidewire was placed in the left collecting system. A 6-Thai 22 cm stent with an external string was placed under fluoroscopic guidance. A similar procedure was performed on the right. Bowman catheter was replaced and her bladder was drained. She was extubated and taken to the recovery room in stable condition. We will monitor her. She can go home without the Bowman. We will get the stents out at a later date once her creatinine has nadired. TID: [id number] RECEIPT: [id number] JENNIFER/DANA
--- NOTE | 2020-08-23 13:22 | Fluoroscopy Report ---
Retrograde ureterograms fluoroscopically guided INDICATION: Bilateral hydronephrosis IMPRESSION: Retrograde ureterograms demonstrate a several focal narrowings within both distal ureters especially within the distal left ureter where there appears to be at least mild stricture. Bilatera l double-J ureteral stents have been placed in the interim. Fluoroscopy time: 0.7 minutes. Fluoroscopic images: 14. Signer Name: Willie Dickerson MD Signed: 08/23/2020 1:18 PM Workstation Name: [id number]
--- NOTE | 2020-08-23 14:16 | Progress Note ---
Assessment and Plan Hypertensive emergency Hypertensive encephalopathy Acute kidney injury Left lower leg nonocclusive DVT (H/O R. lower leg DVT) Obesity Leukocytosis Acute oropharyngeal dysphagia Cerebral atherosclerosis Vascular dementia Metabolic acidosis - continue to wean supplemental oxygen to keep O2 sats > 90% - prn bronchodilators (DAYNA) with pulm hygiene per RT - continue full anticoagulation with IV Heparin (transition to oral agent shortly) - continue to avoid nephrotoxins, renally dose all medications - mobility protocols to prevent pressure ulcers - PT/OT as tolerated - Wound care per RN/WCT - continue accuchecks with glycemic control per SSI for target blood glucose < 180 mg/dL - prn analgesia per pain score - home oxygen evaluation at discharge - GI & VTE prophylaxis - Flu & pneumovax per protocol - Pulmonary out patient follow up for PFTs and optimization of respiratory status - continue other care per attending / other consultants ... re-evaluate in am & prn Subjective Date of service: 08/23/20 Principal diagnosis: HTNsive emergency; Acute encephalopathy; JENNIFER; DVT ; Obesity; Leukocytosis Interval history: Patient is seen today for: HTNsive emergency; Acute encephalopathy; JENNIFER; Left lower ext. DVT ; Obesity; Leukocytosis Seen and examined at bedside; 24hour events reviewed; nursing and respiratory care staff consulted; no adverse overnight events reported to me; resting in bed; complains of poor appetite; denies gross bleeding; no hemoptysis; no chest pain; remains on room air; s/p cysto re: hydronephrosis Objective Vital Signs - 12hr 08/23/20 08/23/20 08/23/20 05:58 09:30 11:43 Temperature 98.7 F 99.1 F 97.6 F Pulse Rate 79 79 84 Respiratory 20 20 14 Rate Blood Pressure 162/72 152/79 188/94 O2 Sat by Pulse 100 100 100 Oximetry 08/23/20 08/23/20 08/23/20 11:50 11:55 12:00 Temperature Pulse Rate 82 87 98 H Respiratory 13 13 20 Rate Blood Pressure 191/91 183/90 186/100 O2 Sat by Pulse 100 100 100 Oximetry 08/23/20 08/23/20 08/23/20 12:05 12:10 12:15 Temperature Pulse Rate 82 77 80 Respiratory 17 20 17 Rate Blood Pressure 167/78 168/78 169/85 O2 Sat by Pulse 100 100 100 Oximetry 08/23/20 08/23/20 08/23/20 12:30 12:34 12:45 Temperature 98.1 F Pulse Rate 85 85 69 Respiratory 14 15 Rate Blood Pressure 173/82 173/82 152/64 O2 Sat by Pulse 100 100 Oximetry 08/23/20 08/23/20 08/23/20 13:00 13:05 13:15 Temperature 98.6 F Pulse Rate 72 75 78 Respiratory 16 15 20 Rate Blood Pressure 149/72 145/74 154/80 O2 Sat by Pulse 100 100 97 Oximetry Constitutional: no acute distress, alert Eyes: non-icteric ENT: oropharynx moist, other (mallampati 3) Neck: supple, no lymphadenopathy, no JVD Effort: normal Ascultation: Bilateral: clear, diminished breath sounds Percussion: Bilateral: not dull Cardiovascular: regular rate and rhythm Gastrointestinal: normoactive bowel sounds, soft, non-tender, non-distended Integumentary: normal Extremities: no cyanosis, edema (left lower extremity), other (Left leg swollen.) Neurologic: non-focal exam, pupils equal and round, CN II-XII normal, motor strength normal and Psychiatric: mood appropriate, affect normal CBC and BMP: 08/23/20 05:33 08/23/20 05:33 ABG, PT/INR, D-dimer: PT/INR, D-dimer PT 14.9 Sec. (12.2-14.9) 08/20/20 14:40 INR 1.11 (0.87-1.13) 08/20/20 14:40 Abnormal lab findings: Abnormal Labs 08/19/20 08/19/20 08/19/20 16:14 16:14 17:28 WBC RBC 2.79 L Hgb 9.2 L Hct 27.2 L MCV MCH 33 H Lymph % (Auto) 12.6 L [place] % (Auto) 7.8 H [place] # (Auto) Seg Neutrophils % 78.6 H Seg Neutrophils # 8.4 H Heparin Anti-Xa Level Sodium Potassium 5.6 H Chloride Carbon Dioxide 21 L BUN 59 H Creatinine 7.4 H Glucose 110 H POC Glucose Total Creatine Kinase 184 H PTH Intact 103.8 H Urine pH Urine WBC (Auto) Urine Creatinine Complement C3 08/19/20 08/19/20 08/19/20 17:28 18:31 19:46 WBC RBC Hgb Hct MCV MCH Lymph % (Auto) [place] % (Auto) [place] # (Auto) Seg Neutrophils % Seg Neutrophils # Heparin Anti-Xa Level Sodium Potassium 5.4 H Chloride Carbon Dioxide BUN 58 H Creatinine 7.3 H Glucose 103 H POC Glucose Total Creatine Kinase PTH Intact Urine pH 8.0 H Urine WBC (Auto) 7.0 H Urine Creatinine Complement C3 205 H 08/20/20 08/20/20 08/20/20 07:30 07:30 14:40 WBC 11.1 H RBC 2.80 L Hgb 9.2 L 8.9 L Hct 27.8 L 26.7 L MCV 99 H MCH 33 H Lymph % (Auto) [place] % (Auto) 10.2 H [place] # (Auto) 1.1 H Seg Neutrophils % 70.2 H Seg Neutrophils # 7.8 H Heparin Anti-Xa Level Sodium 149 H Potassium 5.1 H Chloride 109.2 H Carbon Dioxide BUN 57 H Creatinine 6.5 H Glucose POC Glucose Total Creatine Kinase PTH Intact Urine pH Urine WBC (Auto) Urine Creatinine Complement C3 08/20/20 08/20/20 08/20/20 16:15 18:54 23:06 WBC RBC Hgb Hct MCV MCH Lymph % (Auto) [place] % (Auto) [place] # (Auto) Seg Neutrophils % Seg Neutrophils # Heparin Anti-Xa Level 0.76 H Sodium Potassium Chloride Carbon Dioxide BUN Creatinine Glucose POC Glucose Total Creatine Kinase 229 H PTH Intact Urine pH Urine WBC (Auto) Urine Creatinine 81.3 H Complement C3 08/21/20 08/21/20 08/21/20 04:08 04:08 06:18 WBC RBC 2.64 L Hgb 8.9 L Hct 26.0 L MCV 98 H MCH 34 H Lymph % (Auto) [place] % (Auto) [place] # (Auto) Seg Neutrophils % Seg Neutrophils # Heparin Anti-Xa Level 0.75 H Sodium 148 H Potassium Chloride 108.3 H Carbon Dioxide BUN 57 H Creatinine 5.4 H Glucose POC Glucose Total Creatine Kinase PTH Intact Urine pH Urine WBC (Auto) Urine Creatinine Complement C3 08/21/20 08/21/20 08/22/20 11:13 21:51 07:19 WBC RBC Hgb 8.3 L Hct 25.3 L MCV MCH Lymph % (Auto) [place] % (Auto) [place] # (Auto) Seg Neutrophils % Seg Neutrophils # Heparin Anti-Xa Level Sodium Potassium Chloride Carbon Dioxide BUN Creatinine Glucose POC Glucose 118 H 125 H Total Creatine Kinase PTH Intact Urine pH Urine WBC (Auto) Urine Creatinine Complement C3 08/22/20 08/22/20 08/22/20 07:19 07:52 12:08 WBC RBC Hgb Hct MCV MCH Lymph % (Auto) [place] % (Auto) [place] # (Auto) Seg Neutrophils % Seg Neutrophils # Heparin Anti-Xa Level Sodium Potassium Chloride 107.3 H Carbon Dioxide BUN 40 H Creatinine 4.3 H Glucose 102 H POC Glucose 108 H 137 H Total Creatine Kinase PTH Intact Urine pH Urine WBC (Auto) Urine Creatinine Complement C3 08/22/20 08/23/20 08/23/20 20:55 05:33 05:33 WBC RBC 2.61 L Hgb 8.4 L Hct 25.6 L MCV 98 H MCH Lymph % (Auto) [place] % (Auto) [place] # (Auto) Seg Neutrophils % Seg Neutrophils # Heparin Anti-Xa Level Sodium Potassium Chloride Carbon Dioxide BUN 30 H Creatinine 3.9 H Glucose 113 H POC Glucose 108 H Total Creatine Kinase PTH Intact Urine pH Urine WBC (Auto) Urine Creatinine Complement C3 08/23/20 05:58 WBC RBC Hgb Hct MCV MCH Lymph % (Auto) [place] % (Auto) [place] # (Auto) Seg Neutrophils % Seg Neutrophils # Heparin Anti-Xa Level Sodium Potassium Chloride Carbon Dioxide BUN Creatinine Glucose POC Glucose 108 H Total Creatine Kinase PTH Intact Urine pH Urine WBC (Auto) Urine Creatinine Complement C3 Prior PFT's, U/S of legs: other (LL ext non occlusive DVT) Allied health notes reviewed: nursing
--- NOTE | 2020-08-23 17:11 | Post Anesthesia Evaluation ---
- Post Anesthesia Evaluation Patient Participated: Yes Airway Patent: Yes Stable Respiratory Function: Yes Nausea/Vomiting: No Temp > 96.8F: Yes Pain Manageable: Yes Adequeate Hydration: Yes Anesthesia Complications: No Block Receding Appropriately: Not Applicable Patient on Ventilator: No
[2020-08-23] MEDS: ACETAMINOPHEN 325 MG TAB PO PRN (21:54)
[2020-08-24] MEDS: D5W/0.45% NACL 1,000 ML IV SCH (00:05)
[2020-08-24] MEDS: HEPARIN/ 0.45% NACL DRIP 25,000 UNIT/500 ML BAG IV SCH (01:45)
[2020-08-24 08:42] LABS: Hematocrit 24.9 % (30.3-42.9); Hemoglobin 8.3 gm/dl (10.1-14.3); Mean Corpuscular HGB Conc 33 % (30-34); Mean Corpuscular Volume 98 fl (79-97); Platelet Count 249 K/mm3 (140-440); Red Blood Count 2.54 M/mm3 (3.65-5.03); Red Cell Distribution Width 14.2 % (13.2-15.2)
[2020-08-24 10:18] LABS: Calcium 8.9 mg/dL (8.4-10.2)
--- NOTE | 2020-08-24 10:37 | Progress Note ---
Assessment and Plan Assessment and plan: This is a 65-year-old female with vascular dementia, cerebral sclerosis, nonambulatory/bedbound, hypertension, debility, right lower leg DVT admitted with JENNIFER, hypertensive emergency, hypertensive encephalopathy, metabolic acidosis, hyperkalemia Hypertensive emergency Hypertensive encephalopathy Acute kidney injury Left lower leg nonocclusive DVT Leukocytosis Acute dysphagia Hypernatremia Hyperchloremia Cerebral atherosclerosis Vascular dementia Metabolic acidosis History of right lower leg DVT -[facility], nephrology, urology and vascular surgery consulted, appreciated recommendations -COVID 19 PCR pending -s/p cardene gtt -Continue amlodipine, ST saw patient, passed swallow study, renal diet -Assessment for HD per Nephrology. -Strict I&O -Daily weights -Avoid nephrotoxic medications. Creatinine improving -Renally dose medications. -Heparin gtt. Patient's left leg swelling has been going on for about 3 to 4 months, states that she was to have a procedure this week to try to rid the area of some scar tissue that is causing her leg swelling. Spoke with the , not sure if patient was on any blood thinners. We will have physical therapy evaluate the patient, will speak with vascular surgery pertaining to patient's left leg. We will attempt to get records from [facility]. -MIVF per nephro -08/19 CT head limited by motion and positioning however there is mild microvas cular angiopathic without clear CT evidence of acute intracranial hemorrhage -08/09 CT abdomen/pelvis shows moderate right hydronephrosis and dilation of the proximal to mid right ureter, moderate left hydroureteronephrosis with no obvious obstructing stone or lesion, mildly prominent left groin, asymmetric soft tissue swelling involving the visualized left anterior thigh and left flank, mild deep prominent left groin lymph nodes which are nonspecific and likely reactive -08/19 renal ultrasound shows moderate bilateral hydronephrosis -08/19 bilateral lower extremity ultrasound shows positive nonocclusive thrombus in the left common femoral vein without evidence of thrombus within the right lower extremity -08/20 Cystogram completed, urology following. 08/23 cystoscopy completed, patient has hematuria, patient is on heparin at this time -Trend CBC, BMP DVT/GI prophylaxis: Heparin drip Dispo: Continue treatment for urinary retention, JENNIFER, lower extremity nonocclusive thrombus. Attempting to get records from [facility] pertaining to blood clot in left leg. History Interval history: This is a 65-year-old female with vascular dementia, cerebral arthrosclerosis, nonambulatory/bedbound, hypertension, debility, right lower leg DVT (not on therapeutic anticoagulation) presented to the emergency department on 08/19 with complaints of increased worsening of confusion of the past week which increased over the past 24 hours per her via EMS. Work-up in the emergency department revealed JENNIFER with ATN, systolic blood pressure of 203 consistent with hypertensive emergency complicated by hypertensive encephalopathy and metabolic acidosis. Consults placed to nephrology and CCM. Patient was started on a Cardene drip and transferred to ICU. Patient admitted to the hospital service with hypertensive emergency, acute kidney injury, hypertensive encephalopathy and hyperkalemia. 08/20: Patient noted to have a left lower leg DVT and started on heparin drip. Patient is confused therefore nurse was asked to place a Dobbhoff tube. Speech evaluation ordered as bedside swallow evaluation could not be completed due to AMS. Patient has been titrated off Cardene drip and has been started on p.o. antihypertensive. Patient has been downgraded from ICU to telemetry. Of note patient received 4 to 5 mg of Ativan overnight in the emergency room. This morning patient has hyperchloremia, hypernatremia, hyperchloremia and her kidney function tests slightly improved. Patient received Kayexalate. Urology was consulted today. We will give the patient 1 LR bolus and prn labetalol has been ordered 08/21: Patient seen and examined this morning, much more awake, passed swallowing bedside test, spoke with the and the patient, patient knows that she is in the hospital she has been here for the last 2 days. Patient states that she is not in any pain. Patient does not remember much. 08/22: Patient seen and examined, no confusion. States that she has left lower extremity pain. 08/23/20: Patient seen and examined, states that she is improving, patient with good urine output, continues to have left leg swelling. 08/24/2020: Patient seen and examined, no confusion, good urine output, hematuria is noted. Patient continues to be on heparin. Hospitalist Physical - Physical exam Narrative exam: General appearance: no acute distress, well-nourished EENT: PERRL, EOM intact, hearing intact, clear oral mucosa Neck: Present: supple, normal ROM Respiratory: bilateral CTA, negative: rales, rhonchi, wheezing Cardiovascular: Regular rate/rhythm, Normal S1 & S2. No gallop, rub Extremities: Left lower extremity with pain in thigh, swelling, no ischemia, normal temperature, normal color Abdominal: soft, no tenderness, non-distended, normal bowel sounds Integumentary: Present: clear, warm, dry no wounds, no erythema noted : Bowman bag with hematuria. Psychiatric: appropriate mood/affect, intact judgment & insight, no confusion Neurologic: CNII-XII intact, moves all extremities, no sensory or motor abnormalities - Constitutional Vitals: Temp Pulse Resp BP Pulse Ox 99.4 F 98 H 14 134/72 100 08/24/20 05:05 08/24/20 05:05 08/24/20 05:05 08/24/20 05:05 08/24/20 05:05 General appearance: Present: no acute distress, obese HEART Score - HEART Score Troponin: Troponin T < 0.010 ng/mL (0.00-0.029) 08/19/20 16:14 Results - Labs CBC & Chem 7: 08/24/20 07:53 08/24/20 07:53 Labs: Laboratory Last Values WBC 7.2 K/mm3 (4.5-11.0) 08/24/20 07:53 RBC 2.54 M/mm3 (3.65-5.03) L 08/24/20 07:53 Hgb 8.3 gm/dl (10.1-14.3) L 08/24/20 07:53 Hct 24.9 % (30.3-42.9) L 08/24/20 07:53 MCV 98 fl (79-97) H 08/24/20 07:53 MCH 33 pg (28-32) H 08/24/20 07:53 MCHC 33 % (30-34) 08/24/20 07:53 RDW 14.2 % (13.2-15.2) 08/24/20 07:53 Plt Count 249 K/mm3 (140-440) 08/24/20 07:53 Lymph % (Auto) 18.9 % (13.4-35.0) 08/20/20 07:30 [place] % (Auto) 10.2 % (0.0-7.3) H 08/20/20 07:30 Eos % (Auto) 0.1 % (0.0-4.3) 08/20/20 07:30 Baso % (Auto) 0.6 % (0.0-1.8) 08/20/20 07:30 Lymph # (Auto) 2.1 K/mm3 (1.2-5.4) 08/20/20 07:30 [place] # (Auto) 1.1 K/mm3 (0.0-0.8) H 08/20/20 07:30 Eos # (Auto) 0.0 K/mm3 (0.0-0.4) 08/20/20 07:30 Baso # (Auto) 0.1 K/mm3 (0.0-0.1) 08/20/20 07:30 Seg Neutrophils % 70.2 % (40.0-70.0) H 08/20/20 07:30 Seg Neutrophils # 7.8 K/mm3 (1.8-7.7) H 08/20/20 07:30 PT 14.9 Sec. (12.2-14.9) 08/20/20 14:40 INR 1.11 (0.87-1.13) 08/20/20 14:40 APTT 28.7 Sec. (24.2-36.6) 08/20/20 14:40 Thrombin Time 16.9 Sec. (15.1-19.6) 08/19/20 16:14 Heparin Anti-Xa Level 0.38 U.I./ml (0.3-0.7) 08/24/20 07:53 Sodium 144 mmol/L (137-145) 08/24/20 07:53 Potassium 3.8 mmol/L (3.6-5.0) 08/24/20 07:53 Chloride 107.9 mmol/L (98-107) H 08/24/20 07:53 Carbon Dioxide 24 mmol/L (22-30) 08/24/20 07:53 Anion Gap 16 mmol/L 08/24/20 07:53 BUN 23 mg/dL (7-17) H 08/24/20 07:53 Creatinine 2.5 mg/dL (0.6-1.2) H 08/24/20 07:53 Estimated GFR 24 ml/min 08/24/20 07:53 BUN/Creatinine Ratio 9 % 08/24/20 07:53 Glucose 103 mg/dL (65-100) H 08/24/20 07:53 POC Glucose 93 mg/dL (70-105) 08/24/20 07:23 Calcium 8.9 mg/dL (8.4-10.2) 08/24/20 07:53 Total Bilirubin 0.30 mg/dL (0.1-1.2) 08/19/20 16:14 AST 11 units/L (5-40) 08/19/20 16:14 ALT 9 units/L (7-56) 08/19/20 16:14 Alkaline Phosphatase 78 units/L (35-129) 08/19/20 16:14 Ammonia 40.0 umol/L (25-60) 08/19/20 19:46 Total Creatine Kinase 229 units/L (30-135) H 08/20/20 18:54 CK-MB (CK-2) 1.9 ng/mL (0.0-4.0) 08/19/20 16:14 CK-MB (CK-2) Rel Index 1.0 (0-4) 08/19/20 16:14 Troponin T < 0.010 ng/mL (0.00-0.029) 08/19/20 16:14 Total Protein 7.6 g/dL (6.3-8.2) 08/19/20 16:14 Albumin 4.3 g/dL (3.9-5) 08/19/20 16:14 Albumin/Globulin Ratio 1.3 % 08/19/20 16:14 PTH Intact 103.8 pg/mL (15-65) H 08/19/20 17:28 Urine Color Straw (Yellow) 08/19/20 18:31 Urine Turbidity Clear (Clear) 08/19/20 18:31 Urine pH 8.0 (5.0-7.0) H 08/19/20 18:31 Ur Specific [place] 1.011 (1.003-1.030) 08/19/20 18:31 Urine Protein 100 mg/dl mg/dL (Negative) 08/19/20 18:31 Urine Glucose (UA) Neg mg/dL (Negative) 08/19/20 18:31 Urine Ketones Tr mg/dL (Negative) 08/19/20 18:31 Urine Blood Sm (Negative) 08/19/20 18:31 Urine Nitrite Neg (Negative) 08/19/20 18:31 Urine Bilirubin Neg (Negative) 08/19/20 18:31 Urine Urobilinogen < 2.0 mg/dL (<2.0) 08/19/20 18:31 Ur Leukocyte Esterase Tr (Negative) 08/19/20 18:31 Urine WBC (Auto) 7.0 /HPF (0.0-6.0) H 08/19/20 18:31 Urine RBC (Auto) 4.0 /HPF (0.0-6.0) 08/19/20 18:31 U Epithel Cells (Auto) 3.0 /HPF (0-13.0) 08/19/20 18:31 Urine Creatinine 81.3 mg/dL (0.1-20.0) H 08/20/20 16:15 Urine Sodium 93 mmol/L 08/20/20 16:15 Urine Opiates Screen Negative 08/19/20 18:31 Urine Methadone Screen Negative 08/19/20 18:31 Ur Barbiturates Screen Negative 08/19/20 18:31 Ur Phencyclidine Scrn Negative 08/19/20 18:31 Ur Amphetamines Screen Negative 08/19/20 18:31 U Benzodiazepines Scrn Negative 08/19/20 18:31 Urine Cocaine Screen Negative 08/19/20 18:31 U Marijuana (THC) Screen Negative 08/19/20 18:31 Drugs of Abuse Note Disclamer 08/19/20 18:31 Plasma/Serum Alcohol < 0.01 % (0-0.07) 08/19/20 16:14 RICHY Screen Negative (Negative) 08/19/20 17:28 Proteinase 3 (PR3) Ab <1.0 AI (<1.0) 08/19/20 17:28 Myeloperoxidase Ab <1.0 AI (<1.0) 08/19/20 17:28 Complement C3 205 mg/dL (83-193) H 08/19/20 17:28 Complement C4 57 mg/dL (15-57) 08/19/20 17:28 Coronavirus (PCR) Negative (Negative) 08/20/20 Unknown Hepatitis A IgM Ab Non-reactive (NonReactive) 08/19/20 17:28 Hep Bs Antigen Non-reactive (Negative) 08/19/20 17:28 Hep B Core IgM Ab Non-reactive (NonReactive) 08/19/20 17:28 Hepatitis C Antibody Non-reactive (NonReactive) 08/19/20 17:28 HIV 1&2 Antibody Rapid Non react (Non React) 08/19/20 17:28 HIV P24 Antigen Non react (Non React) 08/19/20 17:28 Bowman/IV: Voiding Method Indwelling Catheter Active Medications - Current Medications Current Medications: Generic Name Dose Route Start Last Admin Trade Name Freq PRN Reason Stop Dose Admin Acetaminophen 650 mg 08/20/20 14:00 08/23/20 21:54 Acetaminophen 325 Mg Tab PO 650 mg Q4H PRN Administration Pain MILD(1-3)/Fever >100.5/[place] Albuterol 2.5 mg 08/19/20 19:45 Albuterol 2.5 Mg/3 Ml Nebu IH Q3HRT PRN Shortness Of Breath Amlodipine Besylate 10 mg 08/22/20 10:00 08/23/20 09:22 Amlodipine 10 Mg Tab PO Not Given QDAY RADHA Dextrose 50 ml 08/20/20 12:15 Dextrose 50% In Water (25gm) 50 Ml Syringe IV Q30MIN PRN Hypoglycemia Protocol Famotidine 10 mg 08/20/20 22:00 08/23/20 21:54 Famotidine 20 Mg/2 Ml Inj IV 10 mg BID RADHA Administration Heparin Sodium (Porcine) 3,900 unit 08/20/20 11:30 Heparin 10,000 Units/10 Ml Vial 40 unit/kg (3900 unit) IV Q6H PRN Anti-Xa Assay < 0.1 units/ml Hydralazine HCl 10 mg 08/20/20 17:00 08/23/20 00:41 Hydralazine 20 Mg/1 Ml Inj IV 10 mg Q4H PRN Administration Hypertension Heparin Sodium/Sodium Chloride 25,000 unit in 500 mls @ 29 mls/hr 08/20/20 11:30 08/24/20 01:45 Heparin/ 0.45% Nacl-25,000 Unit/500 Ml IV 1,250 units/hr TITR RADHA 25 mls/hr Administration Protocol 1,450 UNITS/HR Dextrose/Sodium Chloride 1,000 mls @ 125 mls/hr 08/20/20 17:00 08/24/20 00:05 D5/0.45ns IV 125 mls/hr DIRECT RADHA Administration Labetalol HCl 10 mg 08/20/20 13:00 08/23/20 12:34 Labetalol 20 Mg/4 Ml Inj IV 10 mg Q6HR PRN Administration Hypertension Ondansetron HCl 4 mg 08/20/20 13:00 08/23/20 16:02 Ondansetron 4 Mg/2 Ml Inj IV 4 mg Q8H PRN Administration Nausea And Vomiting Sodium Chloride 10 ml 08/19/20 22:00 08/23/20 22:00 Sodium Chloride 0.9% 10 Ml Flush Syringe IV 10 ml BID RADHA Administration Sodium Chloride 10 ml 08/19/20 19:45 Sodium Chloride 0.9% 10 Ml Flush Syringe IV PRN PRN LINE FLUSH Tramadol HCl 50 mg 08/19/20 20:03 08/22/20 09:52 Tramadol 50 Mg Tab PO 50 mg Q6H PRN Administration Pain, Moderate (4-6) Nutrition/Malnutrition Assess - Dietary Evaluation Nutrition/Malnutrition Findings: Nutrition Notes Start: 08/21/20 07:38 Freq: Status: Active Protocol: Document 08/23/20 16:17 [facility] (Rec: 08/23/20 16:19 [facility] [id number]) Nutrition Notes Initial or Follow up Brief Note Current Diet NPO Subjective/Other Information Pt underwent cytoscopy today for bilat hydronephrosis; remains NPO. Nutrition Intervention Follow-Up By: 08/25/20 Additional Comments F/U: diet advancement, need for ONS
[2020-08-24] MEDS: amLODIPine 10 MG TAB PO SCH (10:49)
[2020-08-24] MEDS: FAMOTIDINE 20 MG/2 ML INJ IV SCH (10:49)
--- NOTE | 2020-08-24 13:00 | Progress Note ---
Assessment and Plan Hypertensive emergency Hypertensive encephalopathy Acute kidney injury Left lower leg nonocclusive DVT (H/O R. lower leg DVT) Obesity Acute oropharyngeal dysphagia Cerebral atherosclerosis Vascular dementia Metabolic acidosis - continue to titrate supplemental oxygen to keep SpO2 89-92% -Get lower extremity dopplers r/o DVT. She is currently on therapeutic heparin fro history of non collusive DVT in May - prn bronchodilators (DYANA) with pulm hygiene per RT - continue to avoid nephrotoxins, dose all medications for GFR and CrCL -Monitor renal function - PT/OT as tolerated - continue accuchecks with glycemic control per SSI for target blood glucose < 180 mg/dL - prn analgesia per pain score - Flu & pneumovax per protocol -Bowman catheter per Urology Discussed and updated the patient and her family at the bedside. Discussed with nursing Subjective Date of service: 08/24/20 Principal diagnosis: HTNsive emergency; Acute encephalopathy; JENNIFER; DVT ; Obesity; Leukocytosis Interval history: Patient is seen today for: HTNsive emergency; Acute encephalopathy; JENNIFER; Left lower ext. DVT ; Obesity; Leukocytosis Seen and examined at bedside; 24hour events reviewed; nursing and respiratory care staff consulted; no adverse overnight events reported to me; resting in bed; complains of poor appetite; denies gross bleeding; no hemoptysis; no chest pain; remains on room air; s/p cysto re: hydronephrosis Objective Vital Signs - 12hr 08/24/20 08/24/20 05:05 12:28 Temperature 99.4 F 99.3 F Pulse Rate 98 H 108 H Respiratory 14 20 Rate Blood Pressure 134/72 147/71 O2 Sat by Pulse 100 99 Oximetry Constitutional: no acute distress, alert Eyes: non-icteric ENT: oropharynx moist, other (mallampati 3) Neck: supple, no lymphadenopathy, no JVD Effort: normal Ascultation: Bilateral: clear, diminished breath sounds Percussion: Bilateral: not dull Cardiovascular: regular rate and rhythm Gastrointestinal: normoactive bowel sounds, soft, non-tender, non-distended Integumentary: normal Extremities: no cyanosis, edema (left lower extremity), other (Left leg swollen.) Neurologic: non-focal exam, pupils equal and round, CN II-XII normal, motor strength normal and Psychiatric: mood appropriate, affect normal CBC and BMP: 08/24/20 07:53 06/18/21 07:53 ABG, PT/INR, D-dimer: PT/INR, D-dimer PT 14.9 Sec. (12.2-14.9) 08/20/20 14:40 INR 1.11 (0.87-1.13) 08/20/20 14:40 Abnormal lab findings: Abnormal Labs 08/19/20 08/19/20 08/19/20 16:14 16:14 17:28 WBC RBC 2.79 L Hgb 9.2 L Hct 27.2 L MCV MCH 33 H Lymph % (Auto) 12.6 L [place] % (Auto) 7.8 H [place] # (Auto) Seg Neutrophils % 78.6 H Seg Neutrophils # 8.4 H Heparin Anti-Xa Level Sodium Potassium 5.6 H Chloride Carbon Dioxide 21 L BUN 59 H Creatinine 7.4 H Glucose 110 H POC Glucose Total Creatine Kinase 184 H PTH Intact 103.8 H Urine pH Urine WBC (Auto) Urine Creatinine Complement C3 08/19/20 08/19/20 08/19/20 17:28 18:31 19:46 WBC RBC Hgb Hct MCV MCH Lymph % (Auto) [place] % (Auto) [place] # (Auto) Seg Neutrophils % Seg Neutrophils # Heparin Anti-Xa Level Sodium Potassium 5.4 H Chloride Carbon Dioxide BUN 58 H Creatinine 7.3 H Glucose 103 H POC Glucose Total Creatine Kinase PTH Intact Urine pH 8.0 H Urine WBC (Auto) 7.0 H Urine Creatinine Complement C3 205 H 08/20/20 08/20/20 08/20/20 07:30 07:30 14:40 WBC 11.1 H RBC 2.80 L Hgb 9.2 L 8.9 L Hct 27.8 L 26.7 L MCV 99 H MCH 33 H Lymph % (Auto) [place] % (Auto) 10.2 H [place] # (Auto) 1.1 H Seg Neutrophils % 70.2 H Seg Neutrophils # 7.8 H Heparin Anti-Xa Level Sodium 149 H Potassium 5.1 H Chloride 109.2 H Carbon Dioxide BUN 57 H Creatinine 6.5 H Glucose POC Glucose Total Creatine Kinase PTH Intact Urine pH Urine WBC (Auto) Urine Creatinine Complement C3 08/20/20 08/20/20 08/20/20 16:15 18:54 23:06 WBC RBC Hgb Hct MCV MCH Lymph % (Auto) [place] % (Auto) [place] # (Auto) Seg Neutrophils % Seg Neutrophils # Heparin Anti-Xa Level 0.76 H Sodium Potassium Chloride Carbon Dioxide BUN Creatinine Glucose POC Glucose Total Creatine Kinase 229 H PTH Intact Urine pH Urine WBC (Auto) Urine Creatinine 81.3 H Complement C3 08/21/20 08/21/20 08/21/20 04:08 04:08 06:18 WBC RBC 2.64 L Hgb 8.9 L Hct 26.0 L MCV 98 H MCH 34 H Lymph % (Auto) [place] % (Auto) [place] # (Auto) Seg Neutrophils % Seg Neutrophils # Heparin Anti-Xa Level 0.75 H Sodium 148 H Potassium Chloride 108.3 H Carbon Dioxide BUN 57 H Creatinine 5.4 H Glucose POC Glucose Total Creatine Kinase PTH Intact Urine pH Urine WBC (Auto) Urine Creatinine Complement C3 08/21/20 08/21/20 08/22/20 11:13 21:51 07:19 WBC RBC Hgb 8.3 L Hct 25.3 L MCV MCH Lymph % (Auto) [place] % (Auto) [place] # (Auto) Seg Neutrophils % Seg Neutrophils # Heparin Anti-Xa Level Sodium Potassium Chloride Carbon Dioxide BUN Creatinine Glucose POC Glucose 118 H 125 H Total Creatine Kinase PTH Intact Urine pH Urine WBC (Auto) Urine Creatinine Complement C3 08/22/20 08/22/20 08/22/20 07:19 07:52 12:08 WBC RBC Hgb Hct MCV MCH Lymph % (Auto) [place] % (Auto) [place] # (Auto) Seg Neutrophils % Seg Neutrophils # Heparin Anti-Xa Level Sodium Potassium Chloride 107.3 H Carbon Dioxide BUN 40 H Creatinine 4.3 H Glucose 102 H POC Glucose 108 H 137 H Total Creatine Kinase PTH Intact Urine pH Urine WBC (Auto) Urine Creatinine Complement C3 08/22/20 08/23/20 08/23/20 20:55 05:33 05:33 WBC RBC 2.61 L Hgb 8.4 L Hct 25.6 L MCV 98 H MCH Lymph % (Auto) [place] % (Auto) [place] # (Auto) Seg Neutrophils % Seg Neutrophils # Heparin Anti-Xa Level Sodium Potassium Chloride Carbon Dioxide BUN 30 H Creatinine 3.9 H Glucose 113 H POC Glucose 108 H Total Creatine Kinase PTH Intact Urine pH Urine WBC (Auto) Urine Creatinine Complement C3 08/23/20 08/23/20 08/24/20 05:58 16:39 07:53 WBC RBC 2.54 L Hgb 8.3 L Hct 24.9 L MCV 98 H MCH 33 H Lymph % (Auto) [place] % (Auto) [place] # (Auto) Seg Neutrophils % Seg Neutrophils # Heparin Anti-Xa Level Sodium Potassium Chloride Carbon Dioxide BUN Creatinine Glucose POC Glucose 108 H 115 H Total Creatine Kinase PTH Intact Urine pH Urine WBC (Auto) Urine Creatinine Complement C3 08/24/20 07:53 WBC RBC Hgb Hct MCV MCH Lymph % (Auto) [place] % (Auto) [place] # (Auto) Seg Neutrophils % Seg Neutrophils # Heparin Anti-Xa Level Sodium Potassium Chloride 107.9 H Carbon Dioxide BUN 23 H Creatinine 2.5 H Glucose 103 H POC Glucose Total Creatine Kinase PTH Intact Urine pH Urine WBC (Auto) Urine Creatinine Complement C3 Allied health notes reviewed: nursing
[2020-08-24] MEDS: ACETAMINOPHEN 325 MG TAB PO PRN (13:25)
--- NOTE | 2020-08-24 18:32 | Progress Note ---
Assessment and Plan Assessment Acute kidney injury, unknown baseline Bilateral hydronephrosis Hyperkalemia Hypernatremia Acute encephalopathy Vascular dementia LE DVT, on heparin Recommendations Creatinine improving following Hall placement, continue Hall Urology consulted, recommendations reviewed No indication for dialysis at this time Monitor labs and urine output daily Continue D5 1/2 NS fluids IV Encouraged oral hydration Renally dose medications Avoid nephrotoxins Renal diet Subjective Date of service: 08/24/20 Principal diagnosis: HTNsive emergency; Acute encephalopathy; JENNIFER; DVT ; Obesity; Leukocytosis Interval history: Sitting up in bed. Clear UOP in hall. Objective - Exam Narrative Exam: General: No acute distress Neck: Supple, no JVD Chest: Clear to auscultation bilaterally Heart: RRR, S1 and S2, no pericardial rub Abdomen: Soft, nontender, no renal bruit Extremity: No peripheral cyanosis, edema Neurological: Awake and alert. No astreixis Dermatology: No skin rash Psych: Calm, cooperative Musculoskeletal: No joint effusion - Vital Signs Vital signs: Vital Signs - 12hr 08/24/20 08/24/20 12:28 16:47 Temperature 99.3 F 99.6 F Pulse Rate 108 H 109 H Respiratory 20 20 Rate Blood Pressure 147/71 139/66 O2 Sat by Pulse 99 100 Oximetry - Lab 08/24/20 07:53 08/24/20 07:53 Most recent lab results Calcium 8.9 mg/dL (8.4-10.2) 08/24/20 07:53 Urine Creatinine 81.3 mg/dL (0.1-20.0) H 08/20/20 16:15 Urine Sodium 93 mmol/L 08/20/20 16:15 Medications & Allergies - Medications Allergies/Adverse Reactions: Allergies No Known Allergies Allergy (Verified 08/19/20 15:50) Home Medications: Home Medications Medication Instructions Recorded Confirmed Last Taken Type EPINEPHrine (NF) [Epipen (Nf)] 0.3 mg IM PRN #1 syringekit 04/27/14 08/22/20 08/09/20 Rx Prednisone [Prednisone 10 mg 10 mg PO .TAPER #1 tab.ds.pk 04/27/14 08/22/20 Rx (6-Day Pack, 21 Tabs)] Azithromycin [Zithromax Z-JANES] 1 dose PO DAILY 5 Days tab 07/09/15 08/22/20 08/15/20 Rx Ibuprofen [Motrin] 800 mg PO Q8HR PRN #30 tablet 07/09/15 08/22/20 08/15/20 Rx traMADoL [Ultram 50 MG tab] 50 mg PO Q6HR PRN #20 tablet 07/09/15 08/22/20 08/15/20 Rx Active Medications: Generic Name Dose Route Start Last Admin Trade Name Freq PRN Reason Stop Dose Admin Acetaminophen 650 mg 08/20/20 14:00 08/24/20 13:25 Acetaminophen 325 Mg Tab PO 650 mg Q4H PRN Administration Pain MILD(1-3)/Fever >100.5/[place] Albuterol 2.5 mg 08/19/20 19:45 Albuterol 2.5 Mg/3 Ml Nebu IH Q3HRT PRN Shortness Of Breath Amlodipine Besylate 10 mg 08/22/20 10:00 08/24/20 10:49 Amlodipine 10 Mg Tab PO 10 mg QDAY RADHA Administration Dextrose 50 ml 08/20/20 12:15 Dextrose 50% In Water (25gm) 50 Ml Syringe IV Q30MIN PRN Hypoglycemia Protocol Famotidine 10 mg 08/24/20 22:00 Famotidine 10 Mg Tab PO BID RADHA Heparin Sodium (Porcine) 3,900 unit 08/20/20 11:30 Heparin 10,000 Units/10 Ml Vial 40 unit/kg (3900 unit) IV Q6H PRN Anti-Xa Assay < 0.1 units/ml Hydralazine HCl 10 mg 08/20/20 17:00 08/23/20 00:41 Hydralazine 20 Mg/1 Ml Inj IV 10 mg Q4H PRN Administration Hypertension Heparin Sodium/Sodium Chloride 25,000 unit in 500 mls @ 29 mls/hr 08/20/20 11:30 08/24/20 01:45 Heparin/ 0.45% Nacl-25,000 Unit/500 Ml IV 1,250 units/hr TITR RADHA 25 mls/hr Administration Protocol 1,450 UNITS/HR Dextrose/Sodium Chloride 1,000 mls @ 125 mls/hr 08/20/20 17:00 08/24/20 00:05 D5/0.45ns IV 125 mls/hr DIRECT RADHA Administration Labetalol HCl 10 mg 08/20/20 13:00 08/23/20 12:34 Labetalol 20 Mg/4 Ml Inj IV 10 mg Q6HR PRN Administration Hypertension Ondansetron HCl 4 mg 08/20/20 13:00 08/23/20 16:02 Ondansetron 4 Mg/2 Ml Inj IV 4 mg Q8H PRN Administration Nausea And Vomiting Sodium Chloride 10 ml 08/19/20 22:00 08/24/20 10:50 Sodium Chloride 0.9% 10 Ml Flush Syringe IV 10 ml BID RADHA Administration Sodium Chloride 10 ml 08/19/20 19:45 Sodium Chloride 0.9% 10 Ml Flush Syringe IV PRN PRN LINE FLUSH Tramadol HCl 50 mg 08/19/20 20:03 08/22/20 09:52 Tramadol 50 Mg Tab PO 50 mg Q6H PRN Administration Pain, Moderate (4-6)
--- NOTE | 2020-08-24 21:16 | Vascular Lab Report ---
DUPLEX DOPPLER LOWER EXTREMITY VEINS, BILATERAL INDICATION / CLINICAL INFORMATION: DVT. TECHNIQUE: Duplex doppler imaging was performed through the veins of both lower extremities using venous jeri avinash and other maneuvers. COMPARISON: None available. FINDINGS: RIGHT COMMON FEMORAL VEIN: Negative. RIGHT FEMORAL VEIN: Negative. RIGHT POPLITEAL VEIN: Negative. RIGHT CALF VEINS: Negative. LEFT COMMON FEMORAL VEIN: Echogenic material present with lack of compressibility. LEFT FEMORAL VEIN: Echogenic material present with lack of compressibility.. LEFT POPLITEAL VEIN: Compressible LEFT CALF VEINS: Echogenic material present with lack of compressibility. ADDITIONAL FINDINGS: None. IMPRESSION: 1. Deep venous thrombosis left lower extremity. Signer Name: Jose Tovar MD Signed: 08/24/2020 9:11 PM Workstation Name: [id number]
[2020-08-24] MEDS: FAMOTIDINE 10 MG TAB PO SCH (21:17)
--- NOTE | 2020-08-25 08:42 | Progress Note ---
Assessment and Plan Hypertensive emergency Hypertensive encephalopathy Acute kidney injury Left lower leg DVT on recent imaging Obesity Cerebral atherosclerosis Metabolic acidosis - continue to titrate supplemental oxygen to keep SpO2 89-92% -She has DVT in the left lower extremity. -If no further surgical interventions are planned, can change to oral anticoagulation and stop heparin infusion - prn bronchodilators (DYANA) with pulmonary hygiene per RT - continue to avoid nephrotoxins, dose all medications for GFR and CrCL -Monitor renal function. OK to d/c Bowman per Urology notes - PT/OT as tolerated - continue accuchecks with glycemic control per SSI for target blood glucose < 180 mg/dL - prn analgesia per pain score - Flu & pneumovax per protocol -Discharge planning Discussed and updated the patient and her (on the phone) Subjective Date of service: 08/25/20 Principal diagnosis: HTNsive emergency; Acute encephalopathy; JENNIFER; DVT ; Obesity; Leukocytosis Interval history: Patient is seen today for: HTNsive emergency; Acute encephalopathy; JENNIFER; Left lower ext. DVT ; Obesity; Leukocytosis Seen and examined at bedside; 24hour events reviewed; nursing and respiratory care staff consulted; no adverse overnight events reported to me; resting in bed; complains of shortness of breath on minimal exertion. She stood up and walked to the bathroom to wash up. No hemoptysis; no chest pain; remains on room air; s/p cysto re: hydronephrosis Hematuria- probably Bowman trauma Objective Vital Signs - 12hr 08/24/20 08/24/20 08/25/20 21:13 22:00 06:00 Temperature 99.7 F H 99.7 F H Pulse Rate 95 H 95 H 99 H Respiratory 18 18 16 Rate Blood Pressure 144/66 Blood Pressure 130/70 [Right] O2 Sat by Pulse 100 97 Oximetry Constitutional: no acute distress, alert Eyes: non-icteric ENT: oropharynx moist, other (mallampati 3) Neck: supple, no lymphadenopathy, no JVD Effort: normal Ascultation: Bilateral: clear, diminished breath sounds Percussion: Bilateral: not dull Cardiovascular: regular rate and rhythm Gastrointestinal: normoactive bowel sounds, soft, non-tender, non-distended Integumentary: normal Extremities: no cyanosis, edema (left lower extremity), other (Left leg swollen.) Neurologic: non-focal exam, pupils equal and round, CN II-XII normal, motor strength normal and Psychiatric: mood appropriate, affect normal CBC and BMP: 08/25/20 15:11 08/25/20 15:11 ABG, PT/INR, D-dimer: PT/INR, D-dimer PT 14.9 Sec. (12.2-14.9) 08/20/20 14:40 INR 1.11 (0.87-1.13) 08/20/20 14:40 Abnormal lab findings: Abnormal Labs 08/19/20 08/19/20 08/19/20 16:14 16:14 17:28 WBC RBC 2.79 L Hgb 9.2 L Hct 27.2 L MCV MCH 33 H Lymph % (Auto) 12.6 L [place] % (Auto) 7.8 H [place] # (Auto) Seg Neutrophils % 78.6 H Seg Neutrophils # 8.4 H Heparin Anti-Xa Level Sodium Potassium 5.6 H Chloride Carbon Dioxide 21 L BUN 59 H Creatinine 7.4 H Glucose 110 H POC Glucose Total Creatine Kinase 184 H PTH Intact 103.8 H Urine pH Urine WBC (Auto) Urine Creatinine Complement C3 08/19/20 08/19/20 08/19/20 17:28 18:31 19:46 WBC RBC Hgb Hct MCV MCH Lymph % (Auto) [place] % (Auto) [place] # (Auto) Seg Neutrophils % Seg Neutrophils # Heparin Anti-Xa Level Sodium Potassium 5.4 H Chloride Carbon Dioxide BUN 58 H Creatinine 7.3 H Glucose 103 H POC Glucose Total Creatine Kinase PTH Intact Urine pH 8.0 H Urine WBC (Auto) 7.0 H Urine Creatinine Complement C3 205 H 08/20/20 08/20/20 08/20/20 07:30 07:30 14:40 WBC 11.1 H RBC 2.80 L Hgb 9.2 L 8.9 L Hct 27.8 L 26.7 L MCV 99 H MCH 33 H Lymph % (Auto) [place] % (Auto) 10.2 H [place] # (Auto) 1.1 H Seg Neutrophils % 70.2 H Seg Neutrophils # 7.8 H Heparin Anti-Xa Level Sodium 149 H Potassium 5.1 H Chloride 109.2 H Carbon Dioxide BUN 57 H Creatinine 6.5 H Glucose POC Glucose Total Creatine Kinase PTH Intact Urine pH Urine WBC (Auto) Urine Creatinine Complement C3 08/20/20 08/20/20 08/20/20 16:15 18:54 23:06 WBC RBC Hgb Hct MCV MCH Lymph % (Auto) [place] % (Auto) [place] # (Auto) Seg Neutrophils % Seg Neutrophils # Heparin Anti-Xa Level 0.76 H Sodium Potassium Chloride Carbon Dioxide BUN Creatinine Glucose POC Glucose Total Creatine Kinase 229 H PTH Intact Urine pH Urine WBC (Auto) Urine Creatinine 81.3 H Complement C3 08/21/20 08/21/20 08/21/20 04:08 04:08 06:18 WBC RBC 2.64 L Hgb 8.9 L Hct 26.0 L MCV 98 H MCH 34 H Lymph % (Auto) [place] % (Auto) [place] # (Auto) Seg Neutrophils % Seg Neutrophils # Heparin Anti-Xa Level 0.75 H Sodium 148 H Potassium Chloride 108.3 H Carbon Dioxide BUN 57 H Creatinine 5.4 H Glucose POC Glucose Total Creatine Kinase PTH Intact Urine pH Urine WBC (Auto) Urine Creatinine Complement C3 08/21/20 08/21/20 08/22/20 11:13 21:51 07:19 WBC RBC Hgb 8.3 L Hct 25.3 L MCV MCH Lymph % (Auto) [place] % (Auto) [place] # (Auto) Seg Neutrophils % Seg Neutrophils # Heparin Anti-Xa Level Sodium Potassium Chloride Carbon Dioxide BUN Creatinine Glucose POC Glucose 118 H 125 H Total Creatine Kinase PTH Intact Urine pH Urine WBC (Auto) Urine Creatinine Complement C3 08/22/20 08/22/20 08/22/20 07:19 07:52 12:08 WBC RBC Hgb Hct MCV MCH Lymph % (Auto) [place] % (Auto) [place] # (Auto) Seg Neutrophils % Seg Neutrophils # Heparin Anti-Xa Level Sodium Potassium Chloride 107.3 H Carbon Dioxide BUN 40 H Creatinine 4.3 H Glucose 102 H POC Glucose 108 H 137 H Total Creatine Kinase PTH Intact Urine pH Urine WBC (Auto) Urine Creatinine Complement C3 08/22/20 08/23/20 08/23/20 20:55 05:33 05:33 WBC RBC 2.61 L Hgb 8.4 L Hct 25.6 L MCV 98 H MCH Lymph % (Auto) [place] % (Auto) [place] # (Auto) Seg Neutrophils % Seg Neutrophils # Heparin Anti-Xa Level Sodium Potassium Chloride Carbon Dioxide BUN 30 H Creatinine 3.9 H Glucose 113 H POC Glucose 108 H Total Creatine Kinase PTH Intact Urine pH Urine WBC (Auto) Urine Creatinine Complement C3 08/23/20 08/23/20 08/24/20 05:58 16:39 07:53 WBC RBC 2.54 L Hgb 8.3 L Hct 24.9 L MCV 98 H MCH 33 H Lymph % (Auto) [place] % (Auto) [place] # (Auto) Seg Neutrophils % Seg Neutrophils # Heparin Anti-Xa Level Sodium Potassium Chloride Carbon Dioxide BUN Creatinine Glucose POC Glucose 108 H 115 H Total Creatine Kinase PTH Intact Urine pH Urine WBC (Auto) Urine Creatinine Complement C3 08/24/20 08/24/20 08/24/20 07:53 16:34 21:01 WBC RBC Hgb Hct MCV MCH Lymph % (Auto) [place] % (Auto) [place] # (Auto) Seg Neutrophils % Seg Neutrophils # Heparin Anti-Xa Level Sodium Potassium Chloride 107.9 H Carbon Dioxide BUN 23 H Creatinine 2.5 H Glucose 103 H POC Glucose 122 H 112 H Total Creatine Kinase PTH Intact Urine pH Urine WBC (Auto) Urine Creatinine Complement C3 Additional Studies: Venous Doppler lower extremity: Left lower extremity DVT Allied health notes reviewed: nursing
[2020-08-25] MEDS: ACETAMINOPHEN 325 MG TAB PO PRN ×2 (11:21→16:01)
[2020-08-25] MEDS: amLODIPine 10 MG TAB PO SCH (11:21)
[2020-08-25] MEDS: FAMOTIDINE 10 MG TAB PO SCH ×2 (11:21→22:31)
[2020-08-25] MEDS: HEPARIN/ 0.45% NACL DRIP 25,000 UNIT/500 ML BAG IV SCH ×2 (11:28→11:58)
[2020-08-25] MEDS: HEPARIN 10,000 UNITS/10 ML VIAL IV PRN (11:51)
--- NOTE | 2020-08-25 11:59 | Progress Note ---
Assessment and Plan Assessment and plan: This is a 65-year-old female with vascular dementia, cerebral sclerosis, nonambulatory/bedbound, hypertension, debility, right lower leg DVT admitted with JENNIFER, hypertensive emergency, hypertensive encephalopathy, metabolic acidosis, hyperkalemia Hypertensive emergency Hypertensive encephalopathy Acute kidney injury Left lower leg nonocclusive DVT Leukocytosis Acute dysphagia Hypernatremia Hyperchloremia Cerebral atherosclerosis Vascular dementia Metabolic acidosis History of right lower leg DVT -[facility], nephrology, urology and vascular surgery consulted, appreciated recommendations -s/p cardene gtt -Continue amlodipine, ST saw patient, passed swallow study, renal diet -Assessment for HD per Nephrology. -Strict I&O -Daily weights -Avoid nephrotoxic medications. Creatinine improving -Renally dose medications. -Heparin gtt. Patient's left leg swelling has been going on for about 3 to 4 months, states that she was to have a procedure this week to try to rid the area of some "scar tissue" that is causing her leg swelling. We will have physical therapy evaluate the patient, will speak with vascular surgery pertaining to patient's left leg DVT.. We have tried multiple times to get the records from [facility], however they have not been sent. -MIVF per nephro -08/19 CT head limited by motion and positioning however there is mild microvascular angiopathic without clear CT evidence of acute intracranial hemorrhage -08/09 CT abdomen/pelvis shows moderate right hydronephrosis and dilation of the proximal to mid right ureter, moderate left hydroureteronephrosis with no obvious obstructing stone or lesion, mildly prominent left groin, asymmetric soft tissue swelling involving the visualized left anterior thigh and left flank, mild deep prominent left groin lymph nodes which are nonspecific and likely reactive -08/19 renal ultrasound shows moderate bilateral hydronephrosis -08/19 bilateral lower extremity ultrasound shows positive nonocclusive thrombus in the left common femoral vein without evidence of thrombus within the right lower extremity - 08/23: Repeat Doppler studies of lower extremities show echogenic material present in left common femoral vein and left calf veins, significant for DVT in lower left extremity. -08/20 Cystogram completed, urology following. 08/23 cystoscopy completed, patient has hematuria, patient is on heparin at this time -Trend CBC, BMP DVT/GI prophylaxis: Heparin drip Dispo: Continue treatment for urinary retention, JENNIFER, lower extremity nonocclusive thrombus. Repeat lower extremity Doppler shows DVT in lower left extremity. I will reconsult vascular surgery to evaluate the patient's DVT to determine if any intervention should be done during this hospital stay. History Interval history: This is a 65-year-old female with vascular dementia, cerebral arthrosclerosis, nonambulatory/bedbound, hypertension, debility, right lower leg DVT (not on therapeutic anticoagulation) presented to the emergency department on 08/19 with complaints of increased worsening of confusion of the past week which increased over the past 24 hours per her via EMS. Work-up in the emergency department revealed JENNIFER with ATN, systolic blood pressure of 203 consistent with hypertensive emergency complicated by hypertensive encephalopathy and metabolic acidosis. Consults placed to nephrology and CCM. Patient was started on a Cardene drip and transferred to ICU. Patient admitted to the hospital service with hypertensive emergency, acute kidney injury, hypertensive encephalopathy and hyperkalemia. 08/20: Patient noted to have a left lower leg DVT and started on heparin drip. Patient is confused therefore nurse was asked to place a Dobbhoff tube. Speech evaluation ordered as bedside swallow evaluation could not be completed due to AMS. Patient has been titrated off Cardene drip and has been started on p.o. antihypertensive. Patient has been downgraded from ICU to telemetry. Of note patient received 4 to 5 mg of Ativan overnight in the emergency room. This morning patient has hyperchloremia, hypernatremia, hyperchloremia and her kidney function tests slightly improved. Patient received Kayexalate. Urology was consulted today. We will give the patient 1 LR bolus and prn labetalol has been ordered 08/21: Patient seen and examined this morning, much more awake, passed swallowing bedside test, spoke with the and the patient, patient knows that she is in the hospital she has been here for the last 2 days. Patient states that she is not in any pain. Patient does not remember much. 08/22: Patient seen and examined, no confusion. States that she has left lower extremity pain. 08/23/20: Patient seen and examined, states that she is improving, patient with good urine output, continues to have left leg swelling. 08/24/2020: Patient seen and examined, no confusion, good urine output, hematuria is noted. Patient continues to be on heparin. 08/25/2020: Patient seen and examined, continues to have lower left leg pain. Very minimal hematuria is noted in Bowman bag. Heparin was not running, I spoke with the nurse, it was running up until last night, does not know why it was discontinued, I immediately told the nurse to start the heparin. Spoke with the , states that patient was on Eliquis 5 mg twice daily. It was noted also that patient was supposed to go to a clinic in [facility], most likely a vascular clinic to have the blood clot evaluated. The outpatient clinic staff stated after she is discharged from the hospital, she should come to that clinic. However patient is adamant about having someone look at it during this hospital stay due to the pain and discomfort she is having. Hospitalist Physical - Physical exam Narrative exam: General appearance: no acute distress, well-nourished EENT: PERRL, EOM intact, hearing intact, clear oral mucosa Neck: Present: supple, normal ROM Respiratory: bilateral CTA, negative: rales, rhonchi, wheezing Cardiovascular: Regular rate/rhythm, Normal S1 & S2. No gallop, rub Extremities: Left lower extremity with pain in thigh, swelling, no ischemia, normal temperature, normal color Abdominal: soft, no tenderness, non-distended, normal bowel sounds Integumentary: Present: clear, warm, dry no wounds, no erythema noted : Bowman bag with mild hematuria. Psychiatric: appropriate mood/affect, intact judgment & insight, no confusion Neurologic: CNII-XII intact, moves all extremities, no sensory or motor abnormalities - Constitutional Vitals: Temp Pulse Resp BP Pulse Ox 99.5 F 110 H 16 115/69 100 08/25/20 11:22 08/25/20 11:22 08/25/20 11:22 08/25/20 11:22 08/25/20 11:22 General appearance: Present: no acute distress, obese HEART Score - HEART Score Troponin: Troponin T < 0.010 ng/mL (0.00-0.029) 08/19/20 16:14 Results - Labs CBC & Chem 7: 08/24/20 07:53 08/24/20 07:53 Labs: Laboratory Last Values WBC 7.2 K/mm3 (4.5-11.0) 08/24/20 07:53 RBC 2.54 M/mm3 (3.65-5.03) L 08/24/20 07:53 Hgb 8.3 gm/dl (10.1-14.3) L 08/24/20 07:53 Hct 24.9 % (30.3-42.9) L 08/24/20 07:53 MCV 98 fl (79-97) H 08/24/20 07:53 MCH 33 pg (28-32) H 08/24/20 07:53 MCHC 33 % (30-34) 08/24/20 07:53 RDW 14.2 % (13.2-15.2) 08/24/20 07:53 Plt Count 249 K/mm3 (140-440) 08/24/20 07:53 Lymph % (Auto) 18.9 % (13.4-35.0) 08/20/20 07:30 [place] % (Auto) 10.2 % (0.0-7.3) H 08/20/20 07:30 Eos % (Auto) 0.1 % (0.0-4.3) 08/20/20 07:30 Baso % (Auto) 0.6 % (0.0-1.8) 08/20/20 07:30 Lymph # (Auto) 2.1 K/mm3 (1.2-5.4) 08/20/20 07:30 [place] # (Auto) 1.1 K/mm3 (0.0-0.8) H 08/20/20 07:30 Eos # (Auto) 0.0 K/mm3 (0.0-0.4) 08/20/20 07:30 Baso # (Auto) 0.1 K/mm3 (0.0-0.1) 08/20/20 07:30 Seg Neutrophils % 70.2 % (40.0-70.0) H 08/20/20 07:30 Seg Neutrophils # 7.8 K/mm3 (1.8-7.7) H 08/20/20 07:30 PT 14.9 Sec. (12.2-14.9) 08/20/20 14:40 INR 1.11 (0.87-1.13) 08/20/20 14:40 APTT 28.7 Sec. (24.2-36.6) 08/20/20 14:40 Thrombin Time 16.9 Sec. (15.1-19.6) 08/19/20 16:14 Heparin Anti-Xa Level 0.38 U.I./ml (0.3-0.7) 08/24/20 07:53 Sodium 144 mmol/L (137-145) 08/24/20 07:53 Potassium 3.8 mmol/L (3.6-5.0) 08/24/20 07:53 Chloride 107.9 mmol/L (98-107) H 08/24/20 07:53 Carbon Dioxide 24 mmol/L (22-30) 08/24/20 07:53 Anion Gap 16 mmol/L 08/24/20 07:53 BUN 23 mg/dL (7-17) H 08/24/20 07:53 Creatinine 2.5 mg/dL (0.6-1.2) H 08/24/20 07:53 Estimated GFR 24 ml/min 08/24/20 07:53 BUN/Creatinine Ratio 9 % 08/24/20 07:53 Glucose 103 mg/dL (65-100) H 08/24/20 07:53 POC Glucose 103 mg/dL (70-105) 08/25/20 07:27 Calcium 8.9 mg/dL (8.4-10.2) 08/24/20 07:53 Total Bilirubin 0.30 mg/dL (0.1-1.2) 08/19/20 16:14 AST 11 units/L (5-40) 08/19/20 16:14 ALT 9 units/L (7-56) 08/19/20 16:14 Alkaline Phosphatase 78 units/L (35-129) 08/19/20 16:14 Ammonia 40.0 umol/L (25-60) 08/19/20 19:46 Total Creatine Kinase 229 units/L (30-135) H 08/20/20 18:54 CK-MB (CK-2) 1.9 ng/mL (0.0-4.0) 08/19/20 16:14 CK-MB (CK-2) Rel Index 1.0 (0-4) 08/19/20 16:14 Troponin T < 0.010 ng/mL (0.00-0.029) 08/19/20 16:14 Total Protein 7.6 g/dL (6.3-8.2) 08/19/20 16:14 Albumin 4.3 g/dL (3.9-5) 08/19/20 16:14 Albumin/Globulin Ratio 1.3 % 08/19/20 16:14 PTH Intact 103.8 pg/mL (15-65) H 08/19/20 17:28 Urine Color Straw (Yellow) 08/19/20 18:31 Urine Turbidity Clear (Clear) 08/19/20 18:31 Urine pH 8.0 (5.0-7.0) H 08/19/20 18:31 Ur Specific [place] 1.011 (1.003-1.030) 08/19/20 18:31 Urine Protein 100 mg/dl mg/dL (Negative) 08/19/20 18:31 Urine Glucose (UA) Neg mg/dL (Negative) 08/19/20 18:31 Urine Ketones Tr mg/dL (Negative) 08/19/20 18:31 Urine Blood Sm (Negative) 08/19/20 18:31 Urine Nitrite Neg (Negative) 08/19/20 18:31 Urine Bilirubin Neg (Negative) 08/19/20 18:31 Urine Urobilinogen < 2.0 mg/dL (<2.0) 08/19/20 18:31 Ur Leukocyte Esterase Tr (Negative) 08/19/20 18:31 Urine WBC (Auto) 7.0 /HPF (0.0-6.0) H 08/19/20 18:31 Urine RBC (Auto) 4.0 /HPF (0.0-6.0) 08/19/20 18:31 U Epithel Cells (Auto) 3.0 /HPF (0-13.0) 08/19/20 18:31 Urine Creatinine 81.3 mg/dL (0.1-20.0) H 08/20/20 16:15 Urine Sodium 93 mmol/L 08/20/20 16:15 Urine Opiates Screen Negative 08/19/20 18:31 Urine Methadone Screen Negative 08/19/20 18:31 Ur Barbiturates Screen Negative 08/19/20 18:31 Ur Phencyclidine Scrn Negative 08/19/20 18:31 Ur Amphetamines Screen Negative 08/19/20 18:31 U Benzodiazepines Scrn Negative 08/19/20 18:31 Urine Cocaine Screen Negative 08/19/20 18:31 U Marijuana (THC) Screen Negative 08/19/20 18:31 Drugs of Abuse Note Disclamer 08/19/20 18:31 Plasma/Serum Alcohol < 0.01 % (0-0.07) 08/19/20 16:14 RICHY Screen Negative (Negative) 08/19/20 17:28 Proteinase 3 (PR3) Ab <1.0 AI (<1.0) 08/19/20 17:28 Myeloperoxidase Ab <1.0 AI (<1.0) 08/19/20 17:28 Complement C3 205 mg/dL (83-193) H 08/19/20 17:28 Complement C4 57 mg/dL (15-57) 08/19/20 17:28 Coronavirus (PCR) Negative (Negative) 08/20/20 Unknown Hepatitis A IgM Ab Non-reactive (NonReactive) 08/19/20 17:28 Hep Bs Antigen Non-reactive (Negative) 08/19/20 17:28 Hep B Core IgM Ab Non-reactive (NonReactive) 08/19/20 17:28 Hepatitis C Antibody Non-reactive (NonReactive) 08/19/20 17:28 HIV 1&2 Antibody Rapid Non react (Non React) 08/19/20 17:28 HIV P24 Antigen Non react (Non React) 08/19/20 17:28 Bowman/IV: Voiding Method Indwelling Catheter Active Medications - Current Medications Current Medications: Generic Name Dose Route Start Last Admin Trade Name Freq PRN Reason Stop Dose Admin Acetaminophen 650 mg 08/20/20 14:00 08/25/20 11:21 Acetaminophen 325 Mg Tab PO 650 mg Q4H PRN Administration Pain MILD(1-3)/Fever >100.5/[place] Albuterol 2.5 mg 08/19/20 19:45 Albuterol 2.5 Mg/3 Ml Nebu IH Q3HRT PRN Shortness Of Breath Amlodipine Besylate 10 mg 08/22/20 10:00 08/25/20 11:21 Amlodipine 10 Mg Tab PO 10 mg QDAY RADHA Administration Dextrose 50 ml 08/20/20 12:15 Dextrose 50% In Water (25gm) 50 Ml Syringe IV Q30MIN PRN Hypoglycemia Protocol Famotidine 10 mg 08/24/20 22:00 08/25/20 11:21 Famotidine 10 Mg Tab PO 10 mg BID RADHA Administration Heparin Sodium (Porcine) 3,900 unit 08/20/20 11:30 08/25/20 11:51 Heparin 10,000 Units/10 Ml Vial 40 unit/kg (3900 unit) 3,900 unit IV Administration Q6H PRN Anti-Xa Assay < 0.1 units/ml Hydralazine HCl 10 mg 08/20/20 17:00 08/23/20 00:41 Hydralazine 20 Mg/1 Ml Inj IV 10 mg Q4H PRN Administration Hypertension Heparin Sodium/Sodium Chloride 25,000 unit in 500 mls @ 29 mls/hr 08/20/20 11:30 08/25/20 11:28 Heparin/ 0.45% Nacl-25,000 Unit/500 Ml IV 1,250 units/hr TITR RADHA 25 mls/hr Administration Protocol 1,450 UNITS/HR Dextrose/Sodium Chloride 1,000 mls @ 125 mls/hr 08/20/20 17:00 08/24/20 00:05 D5/0.45ns IV 125 mls/hr DIRECT RADHA Administration Labetalol HCl 10 mg 08/20/20 13:00 08/23/20 12:34 Labetalol 20 Mg/4 Ml Inj IV 10 mg Q6HR PRN Administration Hypertension Ondansetron HCl 4 mg 08/20/20 13:00 08/23/20 16:02 Ondansetron 4 Mg/2 Ml Inj IV 4 mg Q8H PRN Administration Nausea And Vomiting Sodium Chloride 10 ml 08/19/20 22:00 08/25/20 11:21 Sodium Chloride 0.9% 10 Ml Flush Syringe IV 10 ml BID RADHA Administration Sodium Chloride 10 ml 08/19/20 19:45 Sodium Chloride 0.9% 10 Ml Flush Syringe IV PRN PRN LINE FLUSH Tramadol HCl 50 mg 08/19/20 20:03 08/22/20 09:52 Tramadol 50 Mg Tab PO 50 mg Q6H PRN Administration Pain, Moderate (4-6) Nutrition/Malnutrition Assess - Dietary Evaluation Nutrition/Malnutrition Findings: Nutrition Notes Start: 08/21/20 07:38 Freq: Status: Active Protocol: Document 08/25/20 09:51 VANDANA (Rec: 08/25/20 10:02 VANDANA [id number]) Nutrition Notes Initial or Follow up Reassessment Current Diagnosis Acute Kidney Injury, Hypertension Other Pertinent Diagnosis Hypertensive emergency/ encephalopathy, Vascular dementia Current Diet Renal Labs/Tests Reviewed Pertinent Medications Reviewed Height 5 ft 7 in Weight 101.5 kg [place] Body Weight (kg) 61.36 BMI 35.0 Weight Status Obese Subjective/Other Information Spoke with pt via phone at 9: 45. She reports poor appetite and is amenable to ONS ( prefers chocolate flavor). She has consumed 58% of meals since last assessment. Per [employer]ED AND CERTIFIED MIDWIFE eval on 08/21, pt safe for a regular diet. Per nephrology, dialysis not needed at this time. Percent of energy/protein needs met: 74% energy 69% pro Burn Absent Trauma Absent #1 Nutrition Diagnosis Inadequate protein-energy intake Etiology poor appetite As Evidenced by Signs and Symptoms PO intakes meeting <75% energy and pro needs Is patient on ventilator? No Is Patient Ambulatory and/or Out of Bed Yes REE-(Arroyo-St. Jeor-ambulatory/OOB) [ 2083.419 [id number]] Kcal/Kg value to use for calculation 16 Approximate Energy Requirements Using 1624 kcal/Kg Additional Notes Pro needs 0.8-1.2g/kg adjBW: 65-98g/day Fluid needs 1ml/kcal Nutrition Intervention Change Diet Order: Continue current diet order Add Supplement/Snack (indicate name/kcal Ensure High Protein (chocolate /protein ) ) Provides kCal: 320 Provides Protein (gm) 32 Goal #1 PO intake of meals plus ONS to meet at least 75% energy and pro needs Follow-Up By: 08/27/20 Additional Comments F/U: intakes (meals/ONS)
--- NOTE | 2020-08-25 14:14 | XRay Report ---
CHEST 1 VIEW INDICATION: chest pain COMPARISON: 08/19/2020 FINDINGS: SUPPORT DEVICES: None. HEART / MEDIASTINUM: No significant abnormality. LUNGS / PLEURA: No significant pulmonary or pleural abnormality. No pneumothorax. ADDITIONAL FINDINGS: IMPRESSION: 1. No acute cardiopulmonary disease Signer Name: Jose Tovar MD Signed: 08/25/2020 2:10 PM Workstation Name: [id number]
[2020-08-25 15:39] LABS: Basophils % (Auto) 0.4 % (0.0-1.8); Eosinophils # (Auto) 0.3 K/mm3 (0.0-0.4); Eosinophils % (Auto) 3.6 % (0.0-4.3); Hematocrit 26.1 % (30.3-42.9); Lymphocytes # (Auto) 2.4 K/mm3 (1.2-5.4); Lymphocytes % (Auto) 24.7 % (13.4-35.0); Mean Corpuscular HGB Conc 34 % (30-34); Mean Corpuscular Volume 98 fl (79-97); Monocytes # (Auto) 0.8 K/mm3 (0.0-0.8); Monocytes % (Auto) 7.9 % (0.0-7.3); Platelet Count 258 K/mm3 (140-440); Red Blood Count 2.68 M/mm3 (3.65-5.03)
[2020-08-25 15:48] LABS: Calcium 8.5 mg/dL (8.4-10.2)
--- NOTE | 2020-08-25 19:56 | Progress Note ---
Assessment and Plan Assessment Acute kidney injury, unknown baseline Bilateral hydronephrosis Hyperkalemia, now with hypokalemia Hypernatremia, now with hyponatremia Acute encephalopathy Vascular dementia LE DVT, on heparin Recommendations Creatinine improving following Bowman placement, continue Bowman Urology consulted, recommendations reviewed No indication for dialysis at this time Monitor labs and urine output daily Switch from D5 1/2 NS fluids IV to NS K repletion prn Encouraged oral hydration Renally dose medications Avoid nephrotoxins Renal diet Subjective Date of service: 08/25/20 Principal diagnosis: HTNsive emergency; Acute encephalopathy; JENNIFER; DVT ; Obesity; Leukocytosis Interval history: Sitting up in bed. at bedside. Tolerating diet. Objective - Exam Narrative Exam: General: No acute distress Neck: Supple, no JVD Chest: Clear to auscultation bilaterally Heart: RRR, S1 and S2, no pericardial rub Abdomen: Soft, nontender, no renal bruit Extremity: No peripheral cyanosis, edema Neurological: Awake and alert. No astreixis Dermatology: No skin rash Psych: Calm, cooperative Musculoskeletal: No joint effusion - Vital Signs Vital signs: Vital Signs - 12hr 08/25/20 08/25/20 11:22 15:49 Temperature 99.5 F 98.3 F Pulse Rate 110 H 106 H Respiratory 16 18 Rate Blood Pressure 115/69 125/62 O2 Sat by Pulse 100 100 Oximetry - Lab 08/25/20 15:11 08/25/20 15:11 Most recent lab results Calcium 8.5 mg/dL (8.4-10.2) 08/25/20 15:11 Urine Creatinine 81.3 mg/dL (0.1-20.0) H 08/20/20 16:15 Urine Sodium 93 mmol/L 08/20/20 16:15 Medications & Allergies - Medications Allergies/Adverse Reactions: Allergies No Known Allergies Allergy (Verified 08/19/20 15:50) Home Medications: Home Medications Medication Instructions Recorded Confirmed Last Taken Type EPINEPHrine (NF) [Epipen (Nf)] 0.3 mg IM PRN #1 syringekit 04/27/14 08/22/20 08/09/20 Rx Prednisone [Prednisone 10 mg 10 mg PO .TAPER #1 tab.ds.pk 04/27/14 08/22/20 08/15/20 Rx (6-Day Pack, 21 Tabs)] Azithromycin [Zithromax Z-JANES] 1 dose PO DAILY 5 Days tab 07/09/15 08/22/20 08/15/20 Rx Ibuprofen [Motrin] 800 mg PO Q8HR PRN #30 tablet 07/09/15 08/22/20 08/15/20 Rx traMADoL [Ultram 50 MG tab] 50 mg PO Q6HR PRN #20 tablet 07/09/15 08/22/20 08/15/20 Rx Active Medications: Generic Name Dose Route Start Last Admin Trade Name Freq PRN Reason Stop Dose Admin Acetaminophen 650 mg 08/20/20 14:00 08/25/20 16:01 Acetaminophen 325 Mg Tab PO 650 mg Q4H PRN Administration Pain MILD(1-3)/Fever >100.5/[place] Albuterol 2.5 mg 08/19/20 19:45 Albuterol 2.5 Mg/3 Ml Nebu IH Q3HRT PRN Shortness Of Breath Amlodipine Besylate 10 mg 08/22/20 10:00 08/25/20 11:21 Amlodipine 10 Mg Tab PO 10 mg QDAY RADHA Administration Dextrose 50 ml 08/20/20 12:15 Dextrose 50% In Water (25gm) 50 Ml Syringe IV Q30MIN PRN Hypoglycemia Protocol Famotidine 10 mg 08/24/20 22:00 08/25/20 11:21 Famotidine 10 Mg Tab PO 10 mg BID RADHA Administration Heparin Sodium (Porcine) 3,900 unit 08/20/20 11:30 08/25/20 11:51 Heparin 10,000 Units/10 Ml Vial 40 unit/kg (3900 unit) 3,900 unit IV Administration Q6H PRN Anti-Xa Assay < 0.1 units/ml Hydralazine HCl 10 mg 08/20/20 17:00 08/23/20 00:41 Hydralazine 20 Mg/1 Ml Inj IV 10 mg Q4H PRN Administration Hypertension Heparin Sodium/Sodium Chloride 25,000 unit in 500 mls @ 29 mls/hr 08/20/20 11:30 08/25/20 11:58 Heparin/ 0.45% Nacl-25,000 Unit/500 Ml IV 1,250 units/hr TITR RADHA 25 mls/hr Administration Protocol 1,450 UNITS/HR Dextrose/Sodium Chloride 1,000 mls @ 125 mls/hr 08/20/20 17:00 08/24/20 00:05 D5/0.45ns IV 125 mls/hr DIRECT RADHA Administration Labetalol HCl 10 mg 08/20/20 13:00 08/23/20 12:34 Labetalol 20 Mg/4 Ml Inj IV 10 mg Q6HR PRN Administration Hypertension Ondansetron HCl 4 mg 08/20/20 13:00 08/23/20 16:02 Ondansetron 4 Mg/2 Ml Inj IV 4 mg Q8H PRN Administration Nausea And Vomiting Sodium Chloride 10 ml 08/19/20 22:00 08/25/20 11:21 Sodium Chloride 0.9% 10 Ml Flush Syringe IV 10 ml BID RADHA Administration Sodium Chloride 10 ml 08/19/20 19:45 Sodium Chloride 0.9% 10 Ml Flush Syringe IV PRN PRN LINE FLUSH Tramadol HCl 50 mg 08/19/20 20:03 08/22/20 09:52 Tramadol 50 Mg Tab PO 50 mg Q6H PRN Administration Pain, Moderate (4-6)
[2020-08-25] MEDS ORDERED: POTASSIUM CHLORIDE ER 20 MEQ TAB PO NR (19:57)
[2020-08-25] MEDS ORDERED: SODIUM CHLORIDE 0.9% 1000 ML 1,000 ML IV SCH (20:00)
[2020-08-26 04:38] LABS: Calcium 8.1 mg/dL (8.4-10.2)
[2020-08-26] MEDS: amLODIPine 10 MG TAB PO SCH (09:15)
[2020-08-26] MEDS: ACETAMINOPHEN 325 MG TAB PO PRN ×2 (09:15→21:46)
[2020-08-26] MEDS: FAMOTIDINE 10 MG TAB PO SCH ×2 (09:15→21:09)
[2020-08-26] MEDS: HEPARIN/ 0.45% NACL DRIP 25,000 UNIT/500 ML BAG IV SCH (09:16)
--- NOTE | 2020-08-26 09:47 | Progress Note ---
Assessment and Plan Assessment and plan: This is a 65-year-old female with vascular dementia, cerebral sclerosis, nonambulatory/bedbound, hypertension, debility, right lower leg DVT admitted with JENNIFER, hypertensive emergency, hypertensive encephalopathy, metabolic acidosis, hyperkalemia Hypertensive emergency Hypertensive encephalopathy Acute kidney injury Left lower leg nonocclusive DVT Leukocytosis Acute dysphagia Hypernatremia Hyperchloremia Cerebral atherosclerosis Vascular dementia Metabolic acidosis History of right lower leg DVT -[facility], nephrology, urology and vascular surgery consulted, appreciated recommendations -s/p cardene gtt -Continue amlodipine, ST saw patient, passed swallow study, renal diet -Assessment for HD per Nephrology. -Strict I&O -Daily weights -Avoid nephrotoxic medications. Creatinine improving -Renally dose medications. -Heparin gtt. Patient's left leg swelling has been going on for about 3 to 4 months, states that she was to have a procedure this week to try to rid the area of some "scar tissue" that is causing her leg swelling. We will have physical therapy evaluate the patient, will speak with vascular surgery pertaining to patient's left leg DVT.. We have tried multiple times to get the records from [facility], however they have not been sent. -MIVF per nephro -08/19 CT head limited by motion and positioning however there is mild microvascular angiopathic without clear CT evidence of acute intracranial hemorrhage -08/09 CT abdomen/pelvis shows moderate right hydronephrosis and dilation of the proximal to mid right ureter, moderate left hydroureteronephrosis with no obvious obstructing stone or lesion, mildly prominent left groin, asymmetric soft tissue swelling involving the visualized left anterior thigh and left flank, mild deep prominent left groin lymph nodes which are nonspecific and likely reactive -08/19 renal ultrasound shows moderate bilateral hydronephrosis -08/19 bilateral lower extremity ultrasound shows positive nonocclusive thrombus in the left common femoral vein without evidence of thrombus within the right lower extremity - 08/23: Repeat Doppler studies of lower extremities show echogenic material present in left common femoral vein and left calf veins, significant for DVT in lower left extremity. -08/20 Cystogram completed, urology following. 08/23 cystoscopy completed, patient has hematuria, patient is on heparin at this time -Trend CBC, BMP DVT/GI prophylaxis: Heparin drip Dispo: Continue treatment for hematuria, JENNIFER, and left lower extremity DVT. While vascular surgery evaluated patient's DVT. If vascular surgery states this can be done in the outpatient setting, patient will follow up with the clinic in [place] to continue care. History Interval history: This is a 65-year-old female with vascular dementia, cerebral arthrosclerosis, nonambulatory/bedbound, hypertension, debility, right lower leg DVT (not on therapeutic anticoagulation) presented to the emergency department on 08/19 with complaints of increased worsening of confusion of the past week which increased over the past 24 hours per her via EMS. Work-up in the emergency department revealed JENNIFER with ATN, systolic blood pressure of 203 consistent with hypertensive emergency complicated by hypertensive encephalopathy and metabolic acidosis. Consults placed to nephrology and CCM. Patient was started on a Cardene drip and transferred to ICU. Patient admitted to the hospital service with hypertensive emergency, acute kidney injury, hypertensive encephalopathy and hyperkalemia. 08/20: Patient noted to have a left lower leg DVT and started on heparin drip. Patient is confused therefore nurse was asked to place a Dobbhoff tube. Speech evaluation ordered as bedside swallow evaluation could not be completed due to AMS. Patient has been titrated off Cardene drip and has been started on p.o. antihypertensive. Patient has been downgraded from ICU to telemetry. Of note patient received 4 to 5 mg of Ativan overnight in the emergency room. This morning patient has hyperchloremia, hypernatremia, hyperchloremia and her kidney function tests slightly improved. Patient received Kayexalate. Urology was consulted today. We will give the patient 1 LR bolus and prn labetalol has been ordered 08/21: Patient seen and examined this morning, much more awake, passed swallowing bedside test, spoke with the and the patient, patient knows that she is in the hospital she has been here for the last 2 days. Patient states that she is not in any pain. Patient does not remember much. 08/22: Patient seen and examined, no confusion. States that she has left lower extremity pain. 08/23/20: Patient seen and examined, states that she is improving, patient with good urine output, continues to have left leg swelling. 08/24/2020: Patient seen and examined, no confusion, good urine output, hematuria is noted. Patient continues to be on heparin. 08/25/2020: Patient seen and examined, continues to have lower left leg pain. Ve ry minimal hematuria is noted in Bowman bag. Heparin was not running, I spoke with the nurse, it was running up until last night, does not know why it was discontinued, I immediately told the nurse to start the heparin. Spoke with the , states that patient was on Eliquis 5 mg twice daily. It was noted also that patient was supposed to go to a clinic in [facility], most likely a vascular clinic to have the blood clot evaluated. The outpatient clinic staff stated after she is discharged from the hospital, she should come to that clinic. However patient is adamant about having someone look at it during this hospital stay due to the pain and discomfort she is having. 08/26/2020: Patient seen and examined, minimal hematuria, heparin drip has been restarted. Urine seems to be clearing up. I explained to the patient we have consulted vascular surgery, however to do any additional investigations pertaining to contrast may be limited due to her kidney function. Patient verbalized understanding of plan. Patient is eating, no chest pain or shortness of breath. Not getting out of bed that much however PT is seeing the patient. Hospitalist Physical - Physical exam Narrative exam: General appearance: no acute distress, well-nourished EENT: PERRL, EOM intact, hearing intact, clear oral mucosa Neck: Present: supple, normal ROM Respiratory: bilateral CTA, negative: rales, rhonchi, wheezing Cardiovascular: Regular rate/rhythm, Normal S1 & S2. No gallop, rub Extremities: Left lower extremity with pain in thigh and calf, tenderness to touch/deep palpation Abdominal: soft, no tenderness, non-distended, normal bowel sounds Integumentary: Present: clear, warm, dry no wounds, no erythema noted : Bowman bag with mild hematuria. Psychiatric: appropriate mood/affect, intact judgment & insight, no confusion Neurologic: CNII-XII intact, moves all extremities, no sensory or motor abnormalities - Constitutional Vitals: Temp Pulse Resp BP Pulse Ox 98.6 F 104 H 18 139/65 98 08/25/20 20:44 08/25/20 22:00 08/25/20 20:44 08/25/20 20:44 08/25/20 22:00 HEART Score - HEART Score Troponin: Troponin T < 0.010 ng/mL (0.00-0.029) 08/19/20 16:14 Results - Labs CBC & Chem 7: 08/26/20 04:13 08/26/20 04:13 Labs: Laboratory Last Values WBC 9.7 K/mm3 (4.5-11.0) 08/25/20 15:11 RBC 2.68 M/mm3 (3.65-5.03) L 08/25/20 15:11 Hgb 9.0 gm/dl (10.1-14.3) L 08/25/20 15:11 Hct 26.1 % (30.3-42.9) L 08/25/20 15:11 MCV 98 fl (79-97) H 08/25/20 15:11 MCH 34 pg (28-32) H 08/25/20 15:11 MCHC 34 % (30-34) 08/25/20 15:11 RDW 14.0 % (13.2-15.2) 08/25/20 15:11 Plt Count 241 K/mm3 (140-440) 08/26/20 04:13 Lymph % (Auto) 24.7 % (13.4-35.0) 08/25/20 15:11 [place] % (Auto) 7.9 % (0.0-7.3) H 08/25/20 15:11 Eos % (Auto) 3.6 % (0.0-4.3) 08/25/20 15:11 Baso % (Auto) 0.4 % (0.0-1.8) 08/25/20 15:11 Lymph # (Auto) 2.4 K/mm3 (1.2-5.4) 08/25/20 15:11 [place] # (Auto) 0.8 K/mm3 (0.0-0.8) 08/25/20 15:11 Eos # (Auto) 0.3 K/mm3 (0.0-0.4) 08/25/20 15:11 Baso # (Auto) 0.0 K/mm3 (0.0-0.1) 08/25/20 15:11 Seg Neutrophils % 63.4 % (40.0-70.0) 08/25/20 15:11 Seg Neutrophils # 6.2 K/mm3 (1.8-7.7) 08/25/20 15:11 PT 14.9 Sec. (12.2-14.9) 08/20/20 14:40 INR 1.11 (0.87-1.13) 08/20/20 14:40 APTT 28.7 Sec. (24.2-36.6) 08/20/20 14:40 Thrombin Time 16.9 Sec. (15.1-19.6) 08/19/20 16:14 Heparin Anti-Xa Level 0.31 U.I./ml (0.3-0.7) 08/25/20 23:23 Sodium 134 mmol/L (137-145) L 08/26/20 04:13 Potassium 3.4 mmol/L (3.6-5.0) L 08/26/20 04:13 Chloride 98.7 mmol/L (98-107) 08/26/20 04:13 Carbon Dioxide 26 mmol/L (22-30) 08/26/20 04:13 Anion Gap 13 mmol/L 08/26/20 04:13 BUN 19 mg/dL (7-17) H 08/26/20 04:13 Creatinine 1.7 mg/dL (0.6-1.2) H 08/26/20 04:13 Estimated GFR 37 ml/min 08/26/20 04:13 BUN/Creatinine Ratio 11 % 08/26/20 04:13 Glucose 107 mg/dL (65-100) H 08/26/20 04:13 POC Glucose 111 mg/dL (70-105) H 08/26/20 07:30 Calcium 8.1 mg/dL (8.4-10.2) L 08/26/20 04:13 Total Bilirubin 0.30 mg/dL (0.1-1.2) 08/19/20 16:14 AST 11 units/L (5-40) 08/19/20 16:14 ALT 9 units/L (7-56) 08/19/20 16:14 Alkaline Phosphatase 78 units/L (35-129) 08/19/20 16:14 Ammonia 40.0 umol/L (25-60) 08/19/20 19:46 Total Creatine Kinase 229 units/L (30-135) H 08/20/20 18:54 CK-MB (CK-2) 1.9 ng/mL (0.0-4.0) 08/19/20 16:14 CK-MB (CK-2) Rel Index 1.0 (0-4) 08/19/20 16:14 Troponin T < 0.010 ng/mL (0.00-0.029) 08/19/20 16:14 Total Protein 7.6 g/dL (6.3-8.2) 08/19/20 16:14 Albumin 4.3 g/dL (3.9-5) 08/19/20 16:14 Albumin/Globulin Ratio 1.3 % 08/19/20 16:14 PTH Intact 103.8 pg/mL (15-65) H 08/19/20 17:28 Urine Color Straw (Yellow) 08/19/20 18:31 Urine Turbidity Clear (Clear) 08/19/20 18:31 Urine pH 8.0 (5.0-7.0) H 08/19/20 18:31 Ur Specific [place] 1.011 (1.003-1.030) 08/19/20 18:31 Urine Protein 100 mg/dl mg/dL (Negative) 08/19/20 18:31 Urine Glucose (UA) Neg mg/dL (Negative) 08/19/20 18:31 Urine Ketones Tr mg/dL (Negative) 08/19/20 18:31 Urine Blood Sm (Negative) 08/19/20 18:31 Urine Nitrite Neg (Negative) 08/19/20 18:31 Urine Bilirubin Neg (Negative) 08/19/20 18:31 Urine Urobilinogen < 2.0 mg/dL (<2.0) 08/19/20 18:31 Ur Leukocyte Esterase Tr (Negative) 08/19/20 18:31 Urine WBC (Auto) 7.0 /HPF (0.0-6.0) H 08/19/20 18:31 Urine RBC (Auto) 4.0 /HPF (0.0-6.0) 08/19/20 18:31 U Epithel Cells (Auto) 3.0 /HPF (0-13.0) 08/19/20 18:31 Urine Creatinine 81.3 mg/dL (0.1-20.0) H 08/20/20 16:15 Urine Sodium 93 mmol/L 08/20/20 16:15 Urine Opiates Screen Negative 08/19/20 18:31 Urine Methadone Screen Negative 08/19/20 18:31 Ur Barbiturates Screen Negative 08/19/20 18:31 Ur Phencyclidine Scrn Negative 08/19/20 18:31 Ur Amphetamines Screen Negative 08/19/20 18:31 U Benzodiazepines Scrn Negative 08/19/20 18:31 Urine Cocaine Screen Negative 08/19/20 18:31 U Marijuana (THC) Screen Negative 08/19/20 18:31 Drugs of Abuse Note Disclamer 08/19/20 18:31 Plasma/Serum Alcohol < 0.01 % (0-0.07) 08/19/20 16:14 RICHY Screen Negative (Negative) 08/19/20 17:28 Proteinase 3 (PR3) Ab <1.0 AI (<1.0) 08/19/20 17:28 Myeloperoxidase Ab <1.0 AI (<1.0) 08/19/20 17:28 Complement C3 205 mg/dL (83-193) H 08/19/20 17:28 Complement C4 57 mg/dL (15-57) 08/19/20 17:28 Coronavirus (PCR) Negative (Negative) 08/20/20 Unknown Hepatitis A IgM Ab Non-reactive (NonReactive) 08/19/20 17:28 Hep Bs Antigen Non-reactive (Negative) 08/19/20 17:28 Hep B Core IgM Ab Non-reactive (NonReactive) 08/19/20 17:28 Hepatitis C Antibody Non-reactive (NonReactive) 08/19/20 17:28 HIV 1&2 Antibody Rapid Non react (Non React) 08/19/20 17:28 HIV P24 Antigen Non react (Non React) 08/19/20 17:28 Bowman/IV: Voiding Method Indwelling Catheter Active Medications - Current Medications Current Medications: Generic Name Dose Route Start Last Admin Trade Name Freq PRN Reason Stop Dose Admin Acetaminophen 650 mg 08/20/20 14:00 08/26/20 09:15 Acetaminophen 325 Mg Tab PO 650 mg Q4H PRN Administration Pain MILD(1-3)/Fever >100.5/[place] Albuterol 2.5 mg 08/19/20 19:45 Albuterol 2.5 Mg/3 Ml Nebu IH Q3HRT PRN Shortness Of Breath Amlodipine Besylate 10 mg 08/22/20 10:00 08/26/20 09:15 Amlodipine 10 Mg Tab PO 10 mg QDAY RADHA Administration Dextrose 50 ml 08/20/20 12:15 Dextrose 50% In Water (25gm) 50 Ml Syringe IV Q30MIN PRN Hypoglycemia Protocol Famotidine 10 mg 08/24/20 22:00 08/26/20 09:15 Famotidine 10 Mg Tab PO 10 mg BID RADHA Administration Heparin Sodium (Porcine) 3,900 unit 08/20/20 11:30 08/25/20 11:51 Heparin 10,000 Units/10 Ml Vial 40 unit/kg (3900 unit) 3,900 unit IV Administration Q6H PRN Anti-Xa Assay < 0.1 units/ml Hydralazine HCl 10 mg 08/20/20 17:00 08/23/20 00:41 Hydralazine 20 Mg/1 Ml Inj IV 10 mg Q4H PRN Administration Hypertension Heparin Sodium/Sodium Chloride 25,000 unit in 500 mls @ 29 mls/hr 08/20/20 11:30 08/26/20 09:16 Heparin/ 0.45% Nacl-25,000 Unit/500 Ml IV 1,250 units/hr TITR RADHA 25 mls/hr Administration Protocol 1,450 UNITS/HR Sodium Chloride 1,000 mls @ 75 mls/hr 08/25/20 20:00 Nacl 0.9% 1000 Ml IV DIRECT RADHA Labetalol HCl 10 mg 08/20/20 13:00 08/23/20 12:34 Labetalol 20 Mg/4 Ml Inj IV 10 mg Q6HR PRN Administration Hypertension Ondansetron HCl 4 mg 08/20/20 13:00 08/23/20 16:02 Ondansetron 4 Mg/2 Ml Inj IV 4 mg Q8H PRN Administration Nausea And Vomiting Sodium Chloride 10 ml 08/19/20 22:00 08/26/20 09:16 Sodium Chloride 0.9% 10 Ml Flush Syringe IV 10 ml BID RADHA Administration Sodium Chloride 10 ml 08/19/20 19:45 Sodium Chloride 0.9% 10 Ml Flush Syringe IV PRN PRN LINE FLUSH Tramadol HCl 50 mg 08/19/20 20:03 08/22/20 09:52 Tramadol 50 Mg Tab PO 50 mg Q6H PRN Administration Pain, Moderate (4-6) Nutrition/Malnutrition Assess - Dietary Evaluation Nutrition/Malnutrition Findings: Nutrition Notes Start: 08/21/20 0 7:38 Freq: Status: Active Protocol: Document 08/25/20 09:51 VANDANA (Rec: 08/25/20 10:02 VANDANA [id number]) Nutrition Notes Initial or Follow up Reassessment Current Diagnosis Acute Kidney Injury, Hypertension Other Pertinent Diagnosis Hypertensive emergency/ encephalopathy, Vascular dementia Current Diet Renal Labs/Tests Reviewed Pertinent Medications Reviewed Height 5 ft 7 in Weight 101.5 kg [place] Body Weight (kg) 61.36 BMI 35.0 Weight Status Obese Subjective/Other Information Spoke with pt via phone at 9: 45. She reports poor appetite and is amenable to ONS ( prefers chocolate flavor). She has consumed 58% of meals since last assessment. Per [employer] eval on 08/21, pt safe for a regular diet. Per nephrology, dialysis not needed at this time. Percent of energy/protein needs met: 74% energy 69% pro Burn Absent Trauma Absent #1 Nutrition Diagnosis Inadequate protein-energy intake Etiology poor appetite As Evidenced by Signs and Symptoms PO intakes meeting <75% energy and pro needs Is patient on ventilator? No Is Patient Ambulatory and/or Out of Bed Yes REE-(Abbot-St. Jeor-ambulatory/OOB) [ 2083.419 [id number]] Kcal/Kg value to use for calculation 16 Approximate Energy Requirements Using 1624 kcal/Kg Additional Notes Pro needs 0.8-1.2g/kg adjBW: 65-98g/day Fluid needs 1ml/kcal Nutrition Intervention Change Diet Order: Continue current diet order Add Supplement/Snack (indicate name/kcal Ensure High Protein (chocolate /protein ) ) Provides kCal: 320 Provides Protein (gm) 32 Goal #1 PO intake of meals plus ONS to meet at least 75% energy and pro needs Follow-Up By: 08/27/20 Additional Comments F/U: intakes (meals/ONS)
--- NOTE | 2020-08-26 10:53 | Progress Note ---
Assessment and Plan Hypertensive emergency Hypertensive encephalopathy Acute kidney injury Left lower leg DVT on recent imaging Obesity Cerebral atherosclerosis Metabolic acidosis - continue to titrate supplemental oxygen to keep SpO2 89-92% -continue anticoagulation- Xarelto, she had nausea which limited compliance when she was on Eliquis Disucssed with Dr. Champagne - prn bronchodilators (DYANA) with pulmonary hygiene per RT - continue to avoid nephrotoxins, dose all medications for GFR and CrCL -Monitor renal function. Order placed to discontinue Bowman - PT/OT, increase activity - continue accuchecks with glycemic control per SSI for target blood glucose < 180 mg/dL - prn analgesia per pain score - Flu & pneumovax per protocol -Discharge planning Discussed and updated the patient Discussed with Dr. Champagne Subjective Date of service: 08/26/20 Principal diagnosis: HTNsive emergency; Acute encephalopathy; JENNIFER; DVT ; Obesity; Leukocytosis Interval history: Patient is seen today for: HTNsive emergency; Acute encephalopathy; JENNIFER; Left lower ext. DVT ; Obesity; Leukocytosis Seen and examined at bedside; 24hour events reviewed; nursing and respiratory care staff consulted; no adverse overnight events reported to me; resting in bed; complains of fatigue on minimal exertion. She is resting in a chair No hemoptysis; no chest pain; remains on room air; s/p cysto re: hydronephrosis Objective Constitutional: no acute distress, alert Eyes: non-icteric ENT: oropharynx moist, other (mallampati 3) Neck: supple, no lymphadenopathy, no JVD Effort: normal Ascultation: Bilateral: clear, diminished breath sounds Percussion: Bilateral: not dull Cardiovascular: regular rate and rhythm Gastrointestinal: normoactive bowel sounds, soft, non-tender, non-distended Integumentary: normal Extremities: no cyanosis, edema (left lower extremity), other (Left leg swollen.) Neurologic: non-focal exam, pupils equal and round, CN II-XII normal, motor strength normal and Psychiatric: mood appropriate, affect normal CBC and BMP: 08/27/20 04:58 08/27/20 04:58 ABG, PT/INR, D-dimer: PT/INR, D-dimer PT 14.9 Sec. (12.2-14.9) 08/20/20 14:40 INR 1.11 (0.87-1.13) 08/20/20 14:40 Abnormal lab findings: Abnormal Labs 08/19/20 08/19/20 08/19/20 16:14 16:14 17:28 WBC RBC 2.79 L Hgb 9.2 L Hct 27.2 L MCV MCH 33 H Lymph % (Auto) 12.6 L [place] % (Auto) 7.8 H [place] # (Auto) Seg Neutrophils % 78.6 H Seg Neutrophils # 8.4 H Heparin Anti-Xa Level Sodium Potassium 5.6 H Chloride Carbon Dioxide 21 L BUN 59 H Creatinine 7.4 H Glucose 110 H POC Glucose Calcium Total Creatine Kinase 184 H PTH Intact 103.8 H Urine pH Urine WBC (Auto) Urine Creatinine Complement C3 08/19/20 08/19/20 08/19/20 17:28 18:31 19:46 WBC RBC Hgb Hct MCV MCH Lymph % (Auto) [place] % (Auto) [place] # (Auto) Seg Neutrophils % Seg Neutrophils # Heparin Anti-Xa Level Sodium Potassium 5.4 H Chloride Carbon Dioxide BUN 58 H Creatinine 7.3 H Glucose 103 H POC Glucose Calcium Total Creatine Kinase PTH Intact Urine pH 8.0 H Urine WBC (Auto) 7.0 H Urine Creatinine Complement C3 205 H 08/20/20 08/20/20 08/20/20 07:30 07:30 14:40 WBC 11.1 H RBC 2.80 L Hgb 9.2 L 8.9 L Hct 27.8 L 26.7 L MCV 99 H MCH 33 H Lymph % (Auto) [place] % (Auto) 10.2 H [place] # (Auto) 1.1 H Seg Neutrophils % 70.2 H Seg Neutrophils # 7.8 H Heparin Anti-Xa Level Sodium 149 H Potassium 5.1 H Chloride 109.2 H Carbon Dioxide BUN 57 H Creatinine 6.5 H Glucose POC Glucose Calcium Total Creatine Kinase PTH Intact Urine pH Urine WBC (Auto) Urine Creatinine Complement C3 08/20/20 08/20/20 08/20/20 16:15 18:54 23:06 WBC RBC Hgb Hct MCV MCH Lymph % (Auto) [place] % (Auto) [place] # (Auto) Seg Neutrophils % Seg Neutrophils # Heparin Anti-Xa Level 0.76 H Sodium Potassium Chloride Carbon Dioxide BUN Creatinine Glucose POC Glucose Calcium Total Creatine Kinase 229 H PTH Intact Urine pH Urine WBC (Auto) Urine Creatinine 81.3 H Complement C3 0608/21/20 08/21/20 04:08 04:08 06:18 WBC RBC 2.64 L Hgb 8.9 L Hct 26.0 L MCV 98 H MCH 34 H Lymph % (Auto) [place] % (Auto) [place] # (Auto) Seg Neutrophils % Seg Neutrophils # Heparin Anti-Xa Level 0.75 H Sodium 148 H Potassium Chloride 108.3 H Carbon Dioxide BUN 57 H Creatinine 5.4 H Glucose POC Glucose Calcium Total Creatine Kinase PTH Intact Urine pH Urine WBC (Auto) Urine Creatinine Complement C3 08/21/20 08/21/20 08/22/20 11:13 21:51 07:19 WBC RBC Hgb 8.3 L Hct 25.3 L MCV MCH Lymph % (Auto) [place] % (Auto) [place] # (Auto) Seg Neutrophils % Seg Neutrophils # Heparin Anti-Xa Level Sodium Potassium Chloride Carbon Dioxide BUN Creatinine Glucose POC Glucose 118 H 125 H Calcium Total Creatine Kinase PTH Intact Urine pH Urine WBC (Auto) Urine Creatinine Complement C3 08/22/20 08/22/20 08/22/20 07:19 07:52 12:08 WBC RBC Hgb Hct MCV MCH Lymph % (Auto) [place] % (Auto) [place] # (Auto) Seg Neutrophils % Seg Neutrophils # Heparin Anti-Xa Level Sodium Potassium Chloride 107.3 H Carbon Dioxide BUN 40 H Creatinine 4.3 H Glucose 102 H POC Glucose 108 H 137 H Calcium Total Creatine Kinase PTH Intact Urine pH Urine WBC (Auto) Urine Creatinine Complement C3 08/22/20 08/23/20 08/23/20 20:55 05:33 05:33 WBC RBC 2.61 L Hgb 8.4 L Hct 25.6 L MCV 98 H MCH Lymph % (Auto) [place] % (Auto) [place] # (Auto) Seg Neutrophils % Seg Neutrophils # Heparin Anti-Xa Level Sodium Potassium Chloride Carbon Dioxide BUN 30 H Creatinine 3.9 H Glucose 113 H POC Glucose 108 H Calcium Total Creatine Kinase PTH Intact Urine pH Urine WBC (Auto) Urine Creatinine Complement C3 08/23/20 08/23/20 08/24/20 05:58 16:39 07:53 WBC RBC 2.54 L Hgb 8.3 L Hct 24.9 L MCV 98 H MCH 33 H Lymph % (Auto) [place] % (Auto) [place] # (Auto) Seg Neutrophils % Seg Neutrophils # Heparin Anti-Xa Level Sodium Potassium Chloride Carbon Dioxide BUN Creatinine Glucose POC Glucose 108 H 115 H Calcium Total Creatine Kinase PTH Intact Urine pH Urine WBC (Auto) Urine Creatinine Complement C3 08/24/20 08/24/20 08/24/20 07:53 16:34 21:01 WBC RBC Hgb Hct MCV MCH Lymph % (Auto) [place] % (Auto) [place] # (Auto) Seg Neutrophils % Seg Neutrophils # Heparin Anti-Xa Level Sodium Potassium Chloride 107.9 H Carbon Dioxide BUN 23 H Creatinine 2.5 H Glucose 103 H POC Glucose 122 H 112 H Calcium Total Creatine Kinase PTH Intact Urine pH Urine WBC (Auto) Urine Creatinine Complement C3 08/25/20 08/25/20 08/25/20 11:20 15:11 15:11 WBC RBC 2.68 L Hgb 9.0 L Hct 26.1 L MCV 98 H MCH 34 H Lymph % (Auto) [place] % (Auto) 7.9 H [place] # (Auto) Seg Neutrophils % Seg Neutrophils # Heparin Anti-Xa Level Sodium 136 L D Potassium 3.2 L Chloride Carbon Dioxide BUN 18 H Creatinine 1.8 H Glucose 133 H POC Glucose 106 H Calcium Total Creatine Kinase PTH Intact Urine pH Urine WBC (Auto) Urine Creatinine Complement C3 08/25/20 08/25/20 08/26/20 15:49 21:13 04:13 WBC RBC Hgb Hct MCV MCH Lymph % (Auto) [place] % (Auto) [place] # (Auto) Seg Neutrophils % Seg Neutrophils # Heparin Anti-Xa Level Sodium 134 L Potassium 3.4 L Chloride Carbon Dioxide BUN 19 H Creatinine 1.7 H Glucose 107 H POC Glucose 129 H 136 H Calcium 8.1 L Total Creatine Kinase PTH Intact Urine pH Urine WBC (Auto) Urine Creatinine Complement C3 08/26/20 07:30 WBC RBC Hgb Hct MCV MCH Lymph % (Auto) [place] % (Auto) [place] # (Auto) Seg Neutrophils % Seg Neutrophils # Heparin Anti-Xa Level Sodium Potassium Chloride Carbon Dioxide BUN Creatinine Glucose POC Glucose 111 H Calcium Total Creatine Kinase PTH Intact Urine pH Urine WBC (Auto) Urine Creatinine Complement C3 Allied health notes reviewed: nursing
[2020-08-26] MEDS: RIVAROXABAN 15 MG TAB PO SCH (17:36)
--- NOTE | 2020-08-26 18:01 | Progress Note ---
Assessment and Plan Assessment Acute kidney injury, unknown baseline Bilateral hydronephrosis Hyperkalemia, now with hypokalemia Hypernatremia, now with hyponatremia Acute encephalopathy Vascular dementia LE DVT, on heparin Recommendations Creatinine improving following Bowman placement, continue Bowman Urology consulted, recommendations reviewed No indication for dialysis at this time Monitor labs and urine output daily Switched from D5 1/2 NS fluids IV to NS - continue K repletion prn Encouraged oral hydration Renally dose medications Avoid nephrotoxins Renal diet Subjective Date of service: 08/26/20 Principal diagnosis: JENNIFER Interval history: Sitting up in bed. at bedside. Objective - Exam Narrative Exam: General: No acute distress Neck: Supple, no JVD Chest: Clear to auscultation bilaterally Heart: RRR, S1 and S2, no pericardial rub Abdomen: Soft, nontender, no renal bruit Extremity: No peripheral cyanosis, edema Neurological: Awake and alert. No astreixis Dermatology: No skin rash Psych: Calm, cooperative Musculoskeletal: No joint effusion - Lab 08/26/20 04:13 08/26/20 04:13 Most recent lab results Calcium 8.1 mg/dL (8.4-10.2) L 08/26/20 04:13 Urine Creatinine 81.3 mg/dL (0.1-20.0) H 08/20/20 16:15 Urine Sodium 93 mmol/L 08/20/20 16:15 Medications & Allergies - Medications Allergies/Adverse Reactions: Allergies No Known Allergies Allergy (Verified 08/26/20 07:56) Home Medications: Home Medications Medication Instructions Recorded Confirmed Last Taken Type EPINEPHrine (NF) [Epipen (Nf)] 0.3 mg IM PRN #1 syringekit 04/27/14 08/22/20 08/09/20 Rx Prednisone [Prednisone 10 mg 10 mg PO .TAPER #1 tab.ds.pk 04/27/14 08/22/20 08/15/20 Rx (6-Day Pack, 21 Tabs)] Azithromycin [Zithromax Z-JANES] 1 dose PO DAILY 5 Days tab 07/09/15 08/22/20 08/15/20 Rx Ibuprofen [Motrin] 800 mg PO Q8HR PRN #30 tablet 07/09/15 08/22/20 08/15/20 Rx traMADoL [Ultram 50 MG tab] 50 mg PO Q6HR PRN #20 tablet 07/09/15 08/22/20 08/15/20 Rx Active Medications: Generic Name Dose Route Start Last Admin Trade Name Sophia PRN Reason Stop Dose Admin Acetaminophen 650 mg 08/20/20 14:00 08/26/20 09:15 Acetaminophen 325 Mg Tab PO 650 mg Q4H PRN Administration Pain MILD(1-3)/Fever >100.5/[place] Albuterol 2.5 mg 08/19/20 19:45 Albuterol 2.5 Mg/3 Ml Nebu IH Q3HRT PRN Shortness Of Breath Amlodipine Besylate 10 mg 08/22/20 10:00 08/26/20 09:15 Amlodipine 10 Mg Tab PO 10 mg QDAY RADHA Administration Dextrose 50 ml 08/20/20 12:15 Dextrose 50% In Water (25gm) 50 Ml Syringe IV Q30MIN PRN Hypoglycemia Protocol Famotidine 10 mg 08/24/20 22:00 08/26/20 09:15 Famotidine 10 Mg Tab PO 10 mg BID RADHA Administration Hydralazine HCl 10 mg 08/20/20 17:00 08/23/20 00:41 Hydralazine 20 Mg/1 Ml Inj IV 10 mg Q4H PRN Administration Hypertension Sodium Chloride 1,000 mls @ 75 mls/hr 08/25/20 20:00 Nacl 0.9% 1000 Ml IV DIRECT RADHA Labetalol HCl 10 mg 08/20/20 13:00 08/23/20 12:34 Labetalol 20 Mg/4 Ml Inj IV 10 mg Q6HR PRN Administration Hypertension Ondansetron HCl 4 mg 08/20/20 13:00 08/23/20 16:02 Ondansetron 4 Mg/2 Ml Inj IV 4 mg Q8H PRN Administration Nausea And Vomiting Rivaroxaban 15 mg 08/26/20 17:00 08/26/20 17:36 Rivaroxaban 15 Mg Tab PO 09/16/20 16:59 15 mg BIDDIAB RADHA Administration Protocol Rivaroxaban 20 mg 09/17/20 17:00 Rivaroxaban 20 Mg Tab PO QPMDIAB RADHA Protocol Sodium Chloride 10 ml 08/19/20 22:00 08/26/20 09:16 Sodium Chloride 0.9% 10 Ml Flush Syringe IV 10 ml BID RADHA Administration Sodium Chloride 10 ml 08/19/20 19:45 Sodium Chloride 0.9% 10 Ml Flush Syringe IV PRN PRN LINE FLUSH Tramadol HCl 50 mg 08/19/20 20:03 08/22/20 09:52 Tramadol 50 Mg Tab PO 50 mg Q6H PRN Administration Pain, Moderate (4-6)
[2020-08-26] MEDS: traMADol 50 MG TAB PO PRN (20:55)
[2020-08-27 05:24] LABS: Hematocrit 24.9 % (30.3-42.9); Hemoglobin 8.5 gm/dl (10.1-14.3); Mean Corpuscular HGB Conc 34 % (30-34); Mean Corpuscular Volume 98 fl (79-97); Platelet Count 250 K/mm3 (140-440); Red Blood Count 2.55 M/mm3 (3.65-5.03); Red Cell Distribution Width 14.1 % (13.2-15.2)
--- NOTE | 2020-08-27 09:02 | Progress Note ---
Assessment and Plan Assessment * Nonoliguric acute kidney injury, unknown baseline * Bilateral hydronephrosis * Hyperkalemia, now with hypokalemia * Hypernatremia, now with hyponatremia * Acute encephalopathy * Vascular dementia * LE DVT, on heparin Recommendations * Renal function improved * Urology consulted, recommendations reviewed * No indication for dialysis at this time * Monitor labs and urine output daily * K repletion prn - KCL 40meq x 1 dose ordered * Encouraged oral hydration * Renally dose medications * Avoid nephrotoxins * Renal diet * Will arrange outpatient nephrology follow up Subjective Date of service: 08/27/20 Principal diagnosis: JENNIFER Interval history: Patient reports feeling weak. Has walked with PT. Objective - Vital Signs Vital signs: Vital Signs - 12hr 08/26/20 08/26/20 08/26/20 21:31 21:46 21:55 Temperature 100.0 F H Pulse Rate 106 H Respiratory 18 18 18 Rate Respiratory Rate [Left Lower Leg] Blood Pressure 108/57 O2 Sat by Pulse 100 Oximetry 08/26/20 22:00 Temperature Pulse Rate Respiratory Rate Respiratory 18 Rate [Left Lower Leg] Blood Pressure O2 Sat by Pulse Oximetry - General Appearance General appearance: well-developed, well-nourished, appears stated age Respiratory: Present: Clear to Ascultation Cardiology: regular, S1S2 Gastrointestinal: normal Integumentary: no rash, warm and dry Neurologic: no focal deficit, alert and oriented x3 Psychiatric: cooperative - Lab 08/27/20 04:58 08/27/20 04:58 Most recent lab results Calcium 9.0 mg/dL (8.4-10.2) 08/27/20 04:58 Urine Creatinine 81.3 mg/dL (0.1-20.0) H 08/20/20 16:15 Urine Sodium 93 mmol/L 08/20/20 16:15 Medications & Allergies - Medications Allergies/Adverse Reactions: Allergies No Known Allergies Allergy (Verified 08/26/20 07:56) Home Medications: Home Medications Medication Instructions Recorded Confirmed Last Taken Type EPINEPHrine (NF) [Epipen (Nf)] 0.3 mg IM PRN #1 syringekit 04/27/14 08/22/20 08/09/20 Rx Ibuprofen [Motrin 800 MG tab] 800 mg PO Q8HR PRN #30 tablet 07/09/15 08/22/20 08/15/20 Rx traMADoL [Ultram 50 MG tab] 50 mg PO Q6HR PRN #20 tablet 07/09/15 08/22/20 08/15/20 Rx Rivaroxaban [Xarelto] 15 mg PO BIDDIAB 20 Days #40 tablet 08/27/20 Unknown Rx Rivaroxaban [Xarelto] 20 mg PO QPMDIAB 7 Days #7 tablet 08/27/20 Unknown Rx Active Medications: Generic Name Dose Route Start Last Admin Trade Name Freq PRN Reason Stop Dose Admin Acetaminophen 650 mg 08/20/20 14:00 08/26/20 21:46 Acetaminophen 325 Mg Tab PO 650 mg Q4H PRN Administration Pain MILD(1-3)/Fever >100.5/[place] Albuterol 2.5 mg 08/19/20 19:45 Albuterol 2.5 Mg/3 Ml Nebu IH Q3HRT PRN Shortness Of Breath Amlodipine Besylate 10 mg 08/22/20 10:00 08/26/20 09:15 Amlodipine 10 Mg Tab PO 10 mg QDAY RADHA Administration Dextrose 50 ml 08/20/20 12:15 Dextrose 50% In Water (25gm) 50 Ml Syringe IV Q30MIN PRN Hypoglycemia Protocol Famotidine 10 mg 08/24/20 22:00 08/26/20 21:09 Famotidine 10 Mg Tab PO 10 mg BID RADHA Administration Hydralazine HCl 10 mg 08/20/20 17:00 08/23/20 00:41 Hydralazine 20 Mg/1 Ml Inj IV 10 mg Q4H PRN Administration Hypertension Sodium Chloride 1,000 mls @ 75 mls/hr 08/25/20 20:00 08/26/20 20:55 Nacl 0.9% 1000 Ml IV 75 mls/hr DIRECT RADHA Administration Labetalol HCl 10 mg 08/20/20 13:00 08/23/20 12:34 Labetalol 20 Mg/4 Ml Inj IV 10 mg Q6HR PRN Administration Hypertension Ondansetron HCl 4 mg 08/20/20 13:00 08/23/20 16:02 Ondansetron 4 Mg/2 Ml Inj IV 4 mg Q8H PRN Administration Nausea And Vomiting Rivaroxaban 15 mg 08/26/20 17:00 08/26/20 17:36 Rivaroxaban 15 Mg Tab PO 09/16/20 16:59 15 mg BIDDIAB RADHA Administration Protocol Rivaroxaban 20 mg 09/17/20 17:00 Rivaroxaban 20 Mg Tab PO QPMDIAB RADHA Protocol Sodium Chloride 10 ml 08/19/20 22:00 08/26/20 21:18 Sodium Chloride 0.9% 10 Ml Flush Syringe IV Not Given BID RADHA Sodium Chloride 10 ml 08/19/20 19:45 Sodium Chloride 0.9% 10 Ml Flush Syringe IV PRN PRN LINE FLUSH Tramadol HCl 50 mg 08/19/20 20:03 08/26/20 20:55 Tramadol 50 Mg Tab PO 50 mg Q6H PRN Administration Pain, Moderate (4-6)
[2020-08-27] MEDS ORDERED: POTASSIUM CHLORIDE ER 20 MEQ TAB PO NR (09:15)
--- NOTE | 2020-08-27 09:32 | Discharge Summary ---
Providers - Providers Date of Admission: 08/19/20 19:45 Date of discharge: 08/27/20 Attending physician: AMBER JETER MD 08/19/20 18:27 Consult to Physician [CONS] Routine Comment: Consulting Provider: ELVER SOLANO Physician Instructions: Reason For Exam: potential vascular access for dialysis 08/19/20 18:28 Consult to Physician [CONS] Stat Comment: Consulting Provider: JUD JAMES Physician Instructions: Reason For Exam: Acute renal failure, possible emergent dialysis 08/19/20 19:45 Consult to Physician [CONS] Routine Comment: Consulting Provider: KAMLESH SON Physician Instructions: Reason For Exam: hypertensive emergency] 08/20/20 08:31 Consult to Physician [CONS] Routine Comment: Consulting Provider: DUSTIN VIEIRA Physician Instructions: Reason For Exam: bilateral hydroureteronephrosis 08/20/20 12:11 Speech Therapy Evaluation and Treat [CONS] Routine Reason For Exam: swallow eval 08/20/20 12:15 Consult to Dietitian/Nutrition [CONS] Routine Physician Instructions: Reason For Exam: If needed after speech eval Reason for Consult: Write/Manage Tube Feeding 08/22/20 10:14 Physical Therapy Evaluation and Treat [CONS] Routine Comment: Reason For Exam: debility, hx/ of left leg swelling 08/24/20 11:55 Occupational Therapy Evaluate and Treat [CONS] Routine Comment: Reason For Exam: ADL evaluation Primary care physician: PENOLOGY PROFESSOR Hospitalization Condition: Good Hospital course: Assessment and plan: This is a 65-year-old female with vascular dementia, cerebral sclerosis, nonambulatory/bedbound, hypertension, debility, right lower leg DVT admitted with JENNIFER, hypertensive emergency, hypertensive encephalopathy, metabolic acidosis, hyperkalemia Hypertensive emergency Hypertensive encephalopathy Acute kidney injury Left lower leg nonocclusive DVT Leukocytosis Acute dysphagia Hypernatremia Hyperchloremia Cerebral atherosclerosis Vascular dementia Metabolic acidosis History of right lower leg DVT -CCM, nephrology, urology and vascular surgery consulted, appreciated recommendations -s/p cardene gtt -Continue amlodipine, ST saw patient, passed swallow study, renal diet -Assessment for HD per Nephrology. -Strict I&O -Daily weights -Avoid nephrotoxic medications. Creatinine improving -Renally dose medications. -Heparin gtt. Patient's left leg swelling has been going on for about 3 to 4 months, states that she was to have a procedure this week to try to rid the area of some "scar tissue" that is causing her leg swelling. We will have physical therapy evaluate the patient, will speak with vascular surgery pertaining to patient's left leg DVT.. We have tried multiple times to get the records from [facility], however they have not been sent. -MIVF per nephro -08/19 CT head limited by motion and positioning however there is mild microvascular angiopathic without clear CT evidence of acute intracranial hemorrhage -08/09 CT abdomen/pelvis shows moderate right hydronephrosis and dilation of the proximal to mid right ureter, moderate left hydroureteronephrosis with no obvious obstructing stone or lesion, mildly prominent left groin, asymmetric soft tissue swelling involving the visualized left anterior thigh and left flank, mild deep prominent left groin lymph nodes which are nonspecific and likely reactive -08/19 renal ultrasound shows moderate bilateral hydronephrosis -08/19 bilateral lower extremity ultrasound shows positive nonocclusive thrombus in the left common femoral vein without evidence of thrombus within the right lower extremity - 08/23: Repeat Doppler studies of lower extremities show echogenic material present in left common femoral vein and left calf veins, significant for DVT in lower left extremity. -08/20 Cystogram completed, urology following. 08/23 cystoscopy completed, patient has hematuria, patient is on heparin at this time -Trend CBC, BMP DVT/GI prophylaxis: Heparin drip Dispo: Continue treatment for hematuria, JENNIFER, and left lower extremity DVT. While vascular surgery evaluated patient's DVT. If vascular surgery states this can be done in the outpatient setting, patient will follow up with the clinic in [place] to continue care. History Interval history: This is a 65-year-old female with vascular dementia, cerebral arthrosclerosis, nonambulatory/bedbound, hypertension, debility, right lower leg DVT (not on therapeutic anticoagulation) presented to the emergency department on 08/19 with complaints of increased worsening of confusion of the past week which increased over the past 24 hours per her via EMS. Work-up in the emergency department revealed JENNIFER with ATN, systolic blood pressure of 203 consistent with hypertensive emergency complicated by hypertensive encephalopathy and metabolic acidosis. Consults placed to nephrology and [facility]. Patient was started on a Cardene drip and transferred to ICU. Patient admitted to the hospital service with hypertensive emergency, acute kidney injury, hypertensive encephalopathy and hyperkalemia. 08/20: Patient noted to have a left lower leg DVT and started on heparin drip. Patient is confused therefore nurse was asked to place a Dobbhoff tube. Speech evaluation ordered as bedside swallow evaluation could not be completed due to AMS. Patient has been titrated off Cardene drip and has been started on p.o. antihypertensive. Patient has been downgraded from ICU to telemetry. Of note patient received 4 to 5 mg of Ativan overnight in the emergency room. This morning patient has hyperchloremia, hypernatremia, hyperchloremia and her kidney function tests slightly improved. Patient received Kayexalate. Urology was consulted today. We will give the patient 1 LR bolus and prn labetalol has been ordered 08/21: Patient seen and examined this morning, much more awake, passed swallowing bedside test, spoke with the and the patient, patient knows that she is in the hospital she has been here for the last 2 days. Patient states that she is not in any pain. Patient does not remember much. 08/22: Patient seen and examined, no confusion. States that she has left lower extremity pain. 08/23/20: Patient seen and examined, states that she is improving, patient with good urine output, continues to have left leg swelling. 08/24/2020: Patient seen and examined, no confusion, good urine output, hematuria is noted. Patient continues to be on heparin. 08/25/2020: Patient seen and examined, continues to have lower left leg pain. Very minimal hematuria is noted in Bowman bag. Heparin was not running, I spoke with the nurse, it was running up until last night, does not know why it was discontinued, I immediately told the nurse to start the heparin. Spoke with the , states that patient was on Eliquis 5 mg twice daily. It was noted also that patient was supposed to go to a clinic in [facility], most likely a vascular clinic to have the blood clot evaluated. The outpatient clinic staff stated after she is discharged from the hospital, she should come to that clinic. However patient is adamant about having someone look at it during this hospital stay due to the pain and discomfort she is having. 08/26/2020: Patient seen and examined, minimal hematuria, heparin drip has been restarted. Urine seems to be clearing up. I explained to the patient we have consulted vascular surgery, however to do any additional investigations pertaining to contrast may be limited due to her kidney function. Patient verbalized understanding of plan. Patient is eating, no chest pain or shortness of breath. Not getting out of bed that much however PT is seeing the patient. 08/27/2020: Patient seen and examined, Bowman has been removed, patient is able to urinate, states that there is very minimal gross hematuria. However this is clearing up. Patient continues to have left leg pain secondary to DVT. Patient took Xarelto, no gastric upset. Spoke with nephrology, reviewed the chart, creatinine is improved. Patient can be discharged with follow-up with nephrology and urology. I spoke with the , told him the plan. Patient states that she is calling the vascular clinic today to make a follow-up appointment pertaining to evaluation of her left leg. Patient feels comfortable going home. Disposition: - TO HOME OR SELFCARE Final Discharge Diagnosis (Prints w/discharge instructions): Hypertensive emergency. Hypertensive encephalopathy. Acute kidney injury. Left lower leg DVT. Leukocytosis. Acute dysphagia. Hypernatremia. Hyperchloremia. Cerebral atherosclerosis. Vascular dementia. Metabolic acidosis. History of right lower leg DVT Time spent for discharge: 40 minutes Core Measure Documentation - Palliative Care Palliative Care/ Comfort Measures: Not Applicable - Core Measures Any of the following diagnoses?: DVT/PE - VTE Discharge Requirements Deep Vein Thrombosis/Pulmonary Embolism Present on Admission: Yes Has pt received <5 days of overlap therapy or INR<2.0: Yes Anticoagulant overlap therapy prescribed at discharge: Yes Exam - Physical Exam Narrative exam: General appearance: no acute distress, well-nourished EENT: PERRL, EOM intact, hearing intact, clear oral mucosa Neck: Present: supple, normal ROM Respiratory: bilateral CTA, negative: rales, rhonchi, wheezing Cardiovascular: Regular rate/rhythm, Normal S1 & S2. No gallop, rub Extremities: Left lower extremity with pain in thigh and calf, tenderness to touch/deep palpation Abdominal: soft, no tenderness, non-distended, normal bowel sounds Integumentary: Present: clear, warm, dry no wounds, no erythema noted Psychiatric: appropriate mood/affect, intact judgment & insight, no confusion Neurologic: CNII-XII intact, moves all extremities, no sensory or motor abnor malities - Constitutional Vitals: Temp Pulse Resp BP Pulse Ox 100.0 F H 106 H 18 108/57 100 08/26/20 21:31 08/26/20 21:31 08/26/20 22:00 08/26/20 21:31 08/26/20 21:31 Plan Activity: no restrictions Diet: regular Assessment: Due to patient's medical condition her left leg, it is advised patient be off of work for at least 2 days before returning. 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 Follow up with: DUSTIN VIEIRA MD [Staff Physician] - 09/17/20 (Please call to make an appointment with the urologist. If you are having any urinary retention, profuse urinary bleeding, please return to the hospital for immediate evaluation.) DYANA SAAVEDRA MD [Staff Physician] - 7 Days (Please call to make an appointment with the battalion fire chief.) PRIMARY CAREMD [Primary Care Provider] - 3-5 Days (Please call the vascular surgeon clinic at your scheduled to have your DVT evaluated and make an appointment. You were admitted to the hospital due to renal failure, your creatinine was elevated around 7.0, but is now resolved to 1.3 after urology's intervention. Your Eliquis was discontinued, you were placed on Xarelto. Please take the Xarelto daily as prescribed.) Forms: Work/School Excuse Out Patient Prescriptions: Rivaroxaban [Xarelto] 15 mg PO BIDDIAB 20 Days #40 tablet Rivaroxaban [Xarelto] 20 mg PO QPMDIAB 7 Days #7 tablet
[2020-08-27] MEDS: RIVAROXABAN 15 MG TAB PO SCH (10:09)
[2020-08-27] MEDS: amLODIPine 10 MG TAB PO SCH (10:09)
[2020-08-27] MEDS: FAMOTIDINE 10 MG TAB PO SCH (10:09)
[2020-08-27 12:45] VITALS: BP 124/64
--- NOTE | 2020-08-27 14:18 | Progress Note ---
Assessment and Plan - Patient Problems (1) Acute kidney injury (JENNIFER) with acute tubular necrosis (ATN) Status: Acute (2) Altered mental state Status: Acute Qualifiers: Altered mental status type: delirium Qualified Code(s): R41.0 - Disorientation, unspecified Plan to address problem: (3) Hypertensive emergency Status: Acute (4) Metabolic acidosis Status: Acute Plan to address problem: (5) Obesity (BMI 30.0-34.9) Status: Acute Subjective Date of service: 08/27/20 Principal diagnosis: JENNIFER Interval history: Patient left by the time I saw her. Cancel this note. Objective Vital Signs - 12hr 08/27/20 08/27/20 10:00 10:47 Temperature 99.2 F Pulse Rate 95 H Respiratory 19 Rate Respiratory 18 Rate [Left Lower Leg] Blood Pressure 124/64 O2 Sat by Pulse 99 Oximetry CBC and BMP: 08/27/20 04:58 08/27/20 04:58 ABG, PT/INR, D-dimer: PT/INR, D-dimer PT 14.9 Sec. (12.2-14.9) 08/20/20 14:40 INR 1.11 (0.87-1.13) 08/20/20 14:40 Abnormal lab findings: Abnormal Labs 08/19/20 08/19/20 08/19/20 16:14 16:14 17:28 WBC RBC 2.79 L Hgb 9.2 L Hct 27.2 L MCV MCH 33 H Lymph % (Auto) 12.6 L [place] % (Auto) 7.8 H [place] # (Auto) Seg Neutrophils % 78.6 H Seg Neutrophils # 8.4 H Heparin Anti-Xa Level Sodium Potassium 5.6 H Chloride Carbon Dioxide 21 L BUN 59 H Creatinine 7.4 H Glucose 110 H POC Glucose Calcium Total Creatine Kinase 184 H PTH Intact 103.8 H Urine pH Urine WBC (Auto) Urine Creatinine Complement C3 08/19/20 08/19/20 08/19/20 17:28 18:31 19:46 WBC RBC Hgb Hct MCV MCH Lymph % (Auto) [place] % (Auto) [place] # (Auto) Seg Neutrophils % Seg Neutrophils # Heparin Anti-Xa Level Sodium Potassium 5.4 H Chloride Carbon Dioxide BUN 58 H Creatinine 7.3 H Glucose 103 H POC Glucose Calcium Total Creatine Kinase PTH Intact Urine pH 8.0 H Urine WBC (Auto) 7.0 H Urine Creatinine Complement C3 205 H 08/20/20 08/20/20 08/20/20 07:30 07:30 14:40 WBC 11.1 H RBC 2.80 L Hgb 9.2 L 8.9 L Hct 27.8 L 26.7 L MCV 99 H MCH 33 H Lymph % (Auto) [place] % (Auto) 10.2 H [place] # (Auto) 1.1 H Seg Neutrophils % 70.2 H Seg Neutrophils # 7.8 H Heparin Anti-Xa Level Sodium 149 H Potassium 5.1 H Chloride 109.2 H Carbon Dioxide BUN 57 H Creatinine 6.5 H Glucose POC Glucose Calcium Total Creatine Kinase PTH Intact Urine pH Urine WBC (Auto) Urine Creatinine Complement C3 08/20/20 08/20/20 08/20/20 16:15 18:54 23:06 WBC RBC Hgb Hct MCV MCH Lymph % (Auto) [place] % (Auto) [place] # (Auto) Seg Neutrophils % Seg Neutrophils # Heparin Anti-Xa Level 0.76 H Sodium Potassium Chloride Carbon Dioxide BUN Creatinine Glucose POC Glucose Calcium Total Creatine Kinase 229 H PTH Intact Urine pH Urine WBC (Auto) Urine Creatinine 81.3 H Complement C3 08/21/20 08/21/20 08/21/20 04:08 04:08 06:18 WBC RBC 2.64 L Hgb 8.9 L Hct 26.0 L MCV 98 H MCH 34 H Lymph % (Auto) [place] % (Auto) [place] # (Auto) Seg Neutrophils % Seg Neutrophils # Heparin Anti-Xa Level 0.75 H Sodium 148 H Potassium Chloride 108.3 H Carbon Dioxide BUN 57 H Creatinine 5.4 H Glucose POC Glucose Calcium Total Creatine Kinase PTH Intact Urine pH Urine WBC (Auto) Urine Creatinine Complement C3 08/21/20 08/21/20 08/22/20 11:13 21:51 07:19 WBC RBC Hgb 8.3 L Hct 25.3 L MCV MCH Lymph % (Auto) [place] % (Auto) [place] # (Auto) Seg Neutrophils % Seg Neutrophils # Heparin Anti-Xa Level Sodium Potassium Chloride Carbon Dioxide BUN Creatinine Glucose POC Glucose 118 H 125 H Calcium Total Creatine Kinase PTH Intact Urine pH Urine WBC (Auto) Urine Creatinine Complement C3 08/22/20 08/22/20 08/22/20 07:19 07:52 12:08 WBC RBC Hgb Hct MCV MCH Lymph % (Auto) [place] % (Auto) [place] # (Auto) Seg Neutrophils % Seg Neutrophils # Heparin Anti-Xa Level Sodium Potassium Chloride 107.3 H Carbon Dioxide BUN 40 H Creatinine 4.3 H Glucose 102 H POC Glucose 108 H 137 H Calcium Total Creatine Kinase PTH Intact Urine pH Urine WBC (Auto) Urine Creatinine Complement C3 08/22/20 08/23/20 08/23/20 20:55 05:33 05:33 WBC RBC 2.61 L Hgb 8.4 L Hct 25.6 L MCV 98 H MCH Lymph % (Auto) [place] % (Auto) [place] # (Auto) Seg Neutrophils % Seg Neutrophils # Heparin Anti-Xa Level Sodium Potassium Chloride Carbon Dioxide BUN 30 H Creatinine 3.9 H Glucose 113 H POC Glucose 108 H Calcium Total Creatine Kinase PTH Intact Urine pH Urine WBC (Auto) Urine Creatinine Complement C3 08/23/20 08/23/20 08/24/20 05:58 16:39 07:53 WBC RBC 2.54 L Hgb 8.3 L Hct 24.9 L MCV 98 H MCH 33 H Lymph % (Auto) [place] % (Auto) [place] # (Auto) Seg Neutrophils % Seg Neutrophils # Heparin Anti-Xa Level Sodium Potassium Chloride Carbon Dioxide BUN Creatinine Glucose POC Glucose 108 H 115 H Calcium Total Creatine Kinase PTH Intact Urine pH Urine WBC (Auto) Urine Creatinine Complement C3 08/24/20 08/24/20 08/24/20 07:53 16:34 21:01 WBC RBC Hgb Hct MCV MCH Lymph % (Auto) [place] % (Auto) [place] # (Auto) Seg Neutrophils % Seg Neutrophils # Heparin Anti-Xa Level Sodium Potassium Chloride 107.9 H Carbon Dioxide BUN 23 H Creatinine 2.5 H Glucose 103 H POC Glucose 122 H 112 H Calcium Total Creatine Kinase PTH Intact Urine pH Urine WBC (Auto) Urine Creatinine Complement C3 08/25/20 08/25/20 08/25/20 11:20 15:11 15:11 WBC RBC 2.68 L Hgb 9.0 L Hct 26.1 L MCV 98 H MCH 34 H Lymph % (Auto) [place] % (Auto) 7.9 H [place] # (Auto) Seg Neutrophils % Seg Neutrophils # Heparin Anti-Xa Level Sodium 136 L D Potassium 3.2 L Chloride Carbon Dioxide BUN 18 H Creatinine 1.8 H Glucose 133 H POC Glucose 106 H Calcium Total Creatine Kinase PTH Intact Urine pH Urine WBC (Auto) Urine Creatinine Complement C3 0608/25/20 08/26/20 15:49 21:13 04:13 WBC RBC Hgb Hct MCV MCH Lymph % (Auto) [place] % (Auto) [place] # (Auto) Seg Neutrophils % Seg Neutrophils # Heparin Anti-Xa Level Sodium 134 L Potassium 3.4 L Chloride Carbon Dioxide BUN 19 H Creatinine 1.7 H Glucose 107 H POC Glucose 129 H 136 H Calcium 8.1 L Total Creatine Kinase PTH Intact Urine pH Urine WBC (Auto) Urine Creatinine Complement C3 08/26/20 08/26/20 08/26/20 07:30 11:10 21:00 WBC RBC Hgb Hct MCV MCH Lymph % (Auto) [place] % (Auto) [place] # (Auto) Seg Neutrophils % Seg Neutrophils # Heparin Anti-Xa Level Sodium Potassium Chloride Carbon Dioxide BUN Creatinine Glucose POC Glucose 111 H 122 H 111 H Calcium Total Creatine Kinase PTH Intact Urine pH Urine WBC (Auto) Urine Creatinine Complement C3 08/27/20 08/27/20 04:58 04:58 WBC RBC 2.55 L Hgb 8.5 L Hct 24.9 L MCV 98 H MCH 33 H Lymph % (Auto) [place] % (Auto) [place] # (Auto) Seg Neutrophils % Seg Neutrophils # Heparin Anti-Xa Level Sodium Potassium 3.3 L Chloride Carbon Dioxide BUN 19 H Creatinine 1.3 H Glucose POC Glucose Calcium Total Creatine Kinase PTH Intact Urine pH Urine WBC (Auto) Urine Creatinine Complement C3 Allied health notes reviewed: nursing
--- NOTE | 2020-08-29 19:04 | Electrocardiograph Report ---
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
[2020-09-17] MEDS ORDERED: RIVAROXABAN 20 MG TAB PO SCH (17:00)
== END 2020-08-27 12:15 | disposition home health service (06) | DRG 660 ==
LOC: ED 14:59 → CC1 19:45 → 4A 08-20 12:22 → 3A 08-20 14:17
PROVIDERS: ADMIT Internal Medicine; ATTEND Family Medicine
PROC: BT1B1ZZ Fluoroscopy of Bladder and Urethra using Low Osmolar Contrast (ICD-10-PCS; 2020-08-21)
PROC: BT141ZZ Fluoroscopy of Kidneys, Ureters and Bladder using Low Osmolar Contrast (ICD-10-PCS; principal; 2020-08-23)
PROC: 0T788DZ Dilation of Bilateral Ureters with Intraluminal Device, Via Natural or Artificial Opening Endoscopic (ICD-10-PCS; 2020-08-23)
DX: N13.30 Unspecified hydronephrosis (principal); I16.1 Hypertensive emergency; I67.4 Hypertensive encephalopathy; E87.0 Hyperosmolality and hypernatremia; E87.2 Acidosis; I82.4Z2 Acute embolism and thrombosis of unspecified deep veins of left distal lower extremity; N17.0 Acute kidney failure with tubular necrosis; I67.2 Cerebral atherosclerosis; E87.8 Other disorders of electrolyte and fluid balance, not elsewhere classified; J45.909 Unspecified asthma, uncomplicated; E87.5 Hyperkalemia; Z20.822 Contact with and (suspected) exposure to COVID-19; R33.9 Retention of urine, unspecified; I10 Essential (primary) hypertension; R53.81 Other malaise; E66.9 Obesity, unspecified; F01.50 Vascular dementia, unspecified severity, without behavioral disturbance, psychotic disturbance, mood disturbance, and anxiety; D72.829 Elevated white blood cell count, unspecified; R41.0 Disorientation, unspecified; R13.12 Dysphagia, oropharyngeal phase; Z86.718 Personal history of other venous thrombosis and embolism; Z82.49 Family history of ischemic heart disease and other diseases of the circulatory system; Z68.30 Body mass index [BMI] 30.0-30.9, adult
CPT/HCPCS: 36415; 51600; 70450; 71045; 74176; 74420; 74430; 76770; 80048; 80053; 80074; 80307; 80320; 81001; 82140; 82550; 82553; 82570; 82962; 83970; 84300; 84484; 85014; 85018; 85025; 85027; 85049; 85520; 85610; 85670; 85730; 86021; 86038; 86160; 87086; 87806; 93005; 93970; 96372; 96374; 99292; G0378; A4217; C1758; C1769; C2617; G0480; J0360; J1200; J1630; J1644; J2060; J2405; J2704; J3010; J7030; J7120; Q9958; Q9967; U0003

== ENCOUNTER 2021-04-22 23:32 | Emergency (ER) | payer SELFPAY ==
[~2021-04-22 23:32] MED LIST: EPINEPHrine 1 MG/10 ML SYRINGE ONE; LIDOCAINE PF 100 MG/5 ML (CARDIAC SYRINGE) IV ONE; LIDOCAINE/D5W 2 GM/500 ML (0.4%) DRIP IV ONE
--- NOTE | 2021-04-22 23:55 | Emergency Department Report ---
HPI - General Time Seen by Provider: 04/22/21 23:52 - HPI HPI: Room 17 The patient is a 65-year-old female present with a chief complaint of cardiac arrest. Per EMS the patient was found with decreased responsiveness. EMS was called and upon their arrival of states the patient was unresponsive but had a pulse. At 2305 the patient lost her pulse was found in asystole. ACLS protocols were initiated and the patient was intubated with an ET tube. Upon arrival to the ED the patient remained pulseless and ACLS protocols were continued but there was no return of spontaneous circulation ED Past Medical Hx - Past Medical History Hx Hypertension: Yes Hx Renal Disease: Yes (JENNIFER/ATN; bilateral hydronephr.) Hx of Cancer: Yes (Endometrial CA) - Surgical History Past Surgical History?: No - Family History Family history: no significant - Social History Smoking Status: Unknown if ever smoked - Medications Home Medications: Home Medications Medication Instructions Recorded Confirmed Last Taken Type EPINEPHrine (NF) [Epipen (Nf)] 0.3 mg IM PRN #1 syringekit 04/27/14 08/22/20 08/09/20 Rx Ibuprofen [Motrin 800 MG tab] 800 mg PO Q8HR PRN #30 tablet 07/09/15 08/22/20 08/15/20 Rx traMADoL [Ultram 50 MG tab] 50 mg PO Q6HR PRN #20 tablet 07/09/15 08/22/20 08/15/20 Rx Rivaroxaban [Xarelto] 15 mg PO BIDDIAB 20 Days #40 tablet 08/27/20 Unknown Rx Rivaroxaban [Xarelto] 20 mg PO QPMDIAB 7 Days #7 tablet 08/27/20 Unknown Rx ED Review of Systems ROS: Stated complaint: CARDIAC ARREST Other details as noted in HPI Comment: Unobtainable due to pts medical conditions Physical Exam - Physical Exam Physical Exam: GENERAL: The patient is well-developed well-nourished female lying on stretcher receiving chest compressions from EMS and being bagged via ET tube. [] HEENT: Normocephalic. Atraumatic. NECK: Trachea midline CHEST/LUNGS: Breath sounds equal bilaterally with bagging. No spontaneous respiration HEART/CARDIOVASCULAR: No heart sounds. Asystole on the monitor ABDOMEN: Abdomen is soft, nontender. Patient has normal bowel sounds. There is no abdominal distention. SKIN: There is no rash. There is no edema. There is no diaphoresis. NEURO: GCS 3 T MUSCULOSKELETAL: There is no evidence of acute injury. ED Medical Decision Making - Differential Diagnosis Cardiac arrest Critical care attestation.: If time is entered above; I have spent that time in minutes in the direct care of this critically ill patient, excluding procedure time. ED Disposition Clinical Impression: Cardiac arrest Disposition: 20 Is pt being admited?: No Does the pt Need Aspirin: No Condition: Poor Time of Disposition: 23:53 (Patient )
== END 2021-04-23 03:50 ==
LOC: ED 23:32
DX: I46.9 Cardiac arrest, cause unspecified (principal); I10 Essential (primary) hypertension
CPT/HCPCS: 92950; 99285; J0171; J2001